=== PATIENT | male | born 1945 | race Caucasian/White ===

== ENCOUNTER 2017-12-16 19:44 | Emergency (ER) | payer OTHER, MEDICARE ==
[2017-12-16 20:31] LABS: Urine Blood NEGATIVE (NEG); Urine Glucose 2+ (NEG); Urine Protein NEGATIVE (NEG); Urine Specific Gravity 1.015 (1.005-1.030); Urine pH 5.5 (5.0-7.0)
[2017-12-16 20:34] LABS: Absolute Lymphocytes (CBC) 2.1 K/uL (0.7-4.9); Absolute Monocytes 0.6 K/uL (0.1-1.3); Absolute Neutrophil 4.2 K/uL (1.8-8.0); Basophils % 0.8 % (0-1.3); Eosinophils % 3.6 % (0-4.4); Hematocrit 46.1 % (39.6-49.0); MCH 30.8 pg (27.0-35.0); MCV 90.8 fL (80-100); MPV 9.7 fL (7.6-11.3); Monocytes % 8.8 % (3.3-12.3); RBC Red Blood Cell Count 5.08 M/uL (4.33-5.43)
[2017-12-16 20:39] LABS: Protime INR 0.99
[2017-12-16 20:44] LABS: Urine Bacteria <20 /HPF (NONE SEEN); Urine Culture Reflex Order NOT NEEDED; Urine RBC <5 /HPF (NONE SEEN)
[2017-12-16 20:56] LABS: Albumin 3.8 g/dL (3.4-5.0); Bilirubin Direct 0.1 mg/dL (0-0.2); Bilirubin Total 0.5 mg/dL (0.2-1.0); CKMB Creatine Kinase MB 2.1 ng/mL (0.3-3.6); Magnesium 2.1 mg/dL (1.8-2.4); Potassium 3.8 mmol/L (3.5-5.1); Protein, Total 7.3 g/dL (6.4-8.2)
[2017-12-16] MEDS ORDERED: ASPIRIN 81 MG CHEWABLE TABLET ONE (21:06)
--- NOTE | 2017-12-16 22:12 | RAD REPORT ---
EXAM DESCRIPTION: CT - Ct Stroke Brain Wo Cont - 12/16/2017 8:24 pm CLINICAL HISTORY: Right-sided numbness and weakness, slurred speech, CVA CLINICAL HISTORY: August 2009 TECHNIQUE: Axial 5 millimeter thick images of the head were obtained without IV contrast. All CT scans are performed using dose optimization technique as appropriate and may include automated exposure control or mA/KV adjustment according to patient size. FINDINGS: No intracranial hemorrhage, mass, or cerebral edema. No acute cortical based infarction, c ortical edema or sulcal effacement. In the left parietal periventricular white matter on the left the re is a 3 x 1 cm area of diminished attenuation not present in 2010. Although this is relatively low in attenuation. Acute or subacute nonhemorrhagic infarction is possible particularly in the setting o f right side motor sensory deficit. Patient has a baseline of moderate atrophy and chronic ischemic c hange. Ventricular size is in proportion. Atrophy and chronic ischemic change are not significantly d ifferent from 2010. Visualized portions of the mastoid air cells, paranasal sinuses, and orbits are unremarkable. IMPRESSION: No intracranial hemorrhage. A 3 x 1 cm area of infarction left parietal periventricular white matter is relatively low in density but could still represent acute to subacute infarction. Baseline moderate atrophy and chronic ischemic change seen that is not substantially different from 2 010.
--- NOTE | 2017-12-16 22:13 | RAD REPORT ---
EXAM DESCRIPTION: RAD - Chest Single View - 12/16/2017 8:39 pm CLINICAL HISTORY: Weakness, code stroke chest film COMPARISON: October 08, 2017 TECHNIQUE: AP portable chest image was obtained 2019 hours . FINDINGS: Lungs are clear. Heart and vasculature are normal. No measurable pleural effusion and no p neumothorax. No gross bony abnormality seen. No acute aortic findings suspected. IMPRESSION: No acute cardiopulmonary process. No significant change from comparison.
--- NOTE | 2017-12-16 22:33 | ER ---
Nurse's Notes [facility] Name: Otto Montiel Age: 72 yrs Sex: Male : 1945 Arrival Date: 12/16/2017 Time: 19:45 Bed 3 Private MD: Robert Darden V Diagnosis: Acute Left Parietal Periventricular Infarction Presentation: 12/16 19:58 Presenting complaint: Patient states: I've had right sided numbness from my head to my tl2 feet since Wednesday and I went and saw Dr. Sanchez, he ordered tests but I have been unable to schedule them. I just had blood work and an EKG. Pt denies any changes since Wednesday. Speech is slightly slurred, pt follows commands and answers questions appropriately. Transition of care: patient was not received from another setting of care. No acute neurological deficit is noted. Onset of symptoms was December 14, 2017. Risk Assessment: Do you want to hurt yourself or someone else? Patient reports no desire to harm self or others. Initial Sepsis Screen: Does the patient meet any 2 criteria? No. Patient's initial sepsis screen is negative. Does the patient have a suspected source of infection? No. Patient's initial sepsis screen is negative. Care prior to arrival: None. 19:58 Method Of Arrival: Wheelchair tl2 19:58 Acuity: DARIUS 2 tl2 Triage Assessment: 20:01 The onset of the patients symptoms was December 14, 2017 at 12:00. General: Appears in no tl2 apparent distress. comfortable, Behavior is calm, cooperative, appropriate for age. Pain: Denies pain. Neuro: Level of Consciousness is awake, alert, obeys commands, Oriented to person, place, time, situation, Speech is slurred, Reports blurred vision numbness in right arm and right leg. Stroke Activation: Symptom onset > 6 hours Physician: Stroke Attending; Name: ; Notified At: ; Arrived At: Physician: Chief Stroke Resident; Name: ; Notified At: ; Arrived At: Physician: Stroke Resident; Name: ; Notified At: ; Arrived At: Physician: ED Attending; Name: ; Notified At: ; Arrived At: Physician: ED Resident; Name: ; Notified At: ; Arrived At: Historical: - Allergies: 20:01 Levaquin; tl2 20:01 steroids; tl2 20:01 metformin; tl2 20:01 Actifed Cold-Allergy; tl2 20:01 Celebrex; tl2 20:01 Losartan; tl2 - Home Meds: 20:01 amlodipine 5 mg tab [Active]; glipizide 2.5 mg Oral tr24 [Active]; levothyroxine oral tl2 [Active]; - PMHx: 20:01 Diabetes - NIDDM; Hypertension; Hypothyroidism; legally blind; macular degeneration; tl2 - Immunization history:: Adult Immunizations up to date. - Social history:: Smoking status: Patient/guardian denies using tobacco. - Ebola Screening: : No symptoms or risks identified at this time. - Family history:: not pertinent. - Hospitalizations: : No recent hospitalization is reported. Screenin:02 Abuse screen: Denies threats or abuse. Nutritional screening: No deficits noted. tl2 Tuberculosis screening: No symptoms or risk factors identified. Fall Risk Ambulatory Aid- Crutches/Cane/Walker (15 pts). Gait- Impaired (20 pts.). 20:03 Abuse screen: Denies threats or abuse. Denies injuries from another. Nutritional bp screening: No deficits noted. Tuberculosis screening: No symptoms or risk factors identified. Fall Risk No fall in past 12 months (0 pts). No secondary diagnosis (0 pts). IV access (20 points). Ambulatory Aid- Crutches/Cane/Walker (15 pts). Gait- Weak (10 pts.). Mental Status- Oriented to own ability (0 pts). Total Messer Fall Scale indicates High Risk Score (45 or more points). Fall prevention measures have been instituted. Side Rails Up X 2 Placed Close to Nursing Station Frequent Obs/Assessments Occuring Family Present and informed to notify staff if the need to leave the bedside As available patient and family educated on Fall Prevention Program and Strategies. Assessment: 19:59 T-PA (Activase) Screening: Contraindications: Patient reports onset of signs and bp symptoms of stroke greater than 6 hours ago: Yes. Rapidly improving condition or minor deficit: Yes. General: Appears in no apparent distress. comfortable, obese, Behavior is calm, cooperative, appropriate for age. Pain: Denies pain. Neuro: Level of Consciousness is awake, alert, obeys commands, Oriented to person, place, time, situation, Appropriate for age Digital Marketing Associate are equal bilaterally Weakness in right leg(s) Gait is unsteady, Speech is slurred, Facial droop on right, Pupils are PERRLA, Tingling in right ear, right pentecostal, right jaw, right arm and right leg Reports weakness. Cardiovascular: Rhythm is sinus rhythm. Respiratory: Airway is patent Respiratory effort is even, unlabored, Respiratory pattern is regular, symmetrical. GI: No signs and/or symptoms were reported involving the gastrointestinal system. : No signs and/or symptoms were reported regarding the genitourinary system. EENT: No deficits noted. Derm: No signs and/or symptoms reported regarding the dermatologic system. Musculoskeletal: Range of motion: intact in all extremities, Reports weakness in right arm and right leg numbness in right arm and right leg. 19:59 Reassessment: 72YO WM P/W R SIDED NUMBNESS/WEAKNESS AND INTERMITTENT CONFUSION WITH bp SLURRED SPEECH x2 DAYS. STROKE ALERT DEFERRED DUE TO TIME FRAME. 20:00 The patient has not been NPO before screening. The patient is alert, and able to follow bp commands. The patient exhibits slurred or garbled speech. The patient is not exhibiting difficulty speaking. The patient does not exhibit difficulty understanding words. The patient is able to swallow own secretions with no drooling or need for suction. Patient tolerated one teaspoon of water. No drooling, immediate coughing, gurgling, or clearing of the throat was noted. The patient tolerated 90mL of water. No drooling, immediate coughing, gurgling, or clearing of the throat was noted. The patient passed the bedside swallow screening. Oral medications may be given as ordered. Contact Physician for further diet orders. Provider notified of bedside swallow screening results: Star Doherty MD. 20:20 Reassessment: PT TO CT WITH FIELD ARTILLERY OPERATIONS SPECIALIST. bp 20:45 Reassessment: PER , PT +ISCHEMIC CVA. DISPO PENDING. bp 22:30 Reassessment: NO CHANGE IN NEURO STATUS, TRANSFER IN PROCESS. bp 23:00 Reassessment: REPORT TO [facility], TRANSPORT PENDING. bp 23:23 Reassessment: [facility] AT [facility]/S FOR TRANSPORT. bp Vital Signs: 20:01 BP 167 / 101; Pulse 72; Resp 20; Temp 98.4(O); Pulse Ox 97% on R/A; Weight 104.33 kg; tl2 Height 5 ft. 9 in. (175.26 cm); Pain 0/10; 20:30 BP 198 / 93; Pulse 84; Resp 22; Pulse Ox 96% ; bp 21:05 BP 189 / 86; Pulse 62; Resp 20; Pulse Ox 96% on R/A; mt 21:54 BP 172 / 86; Pulse 70; Resp 16; Pulse Ox 96% on R/A; mt 22:00 BP 174 / 86; Pulse 66; Resp 13; Pulse Ox 96% ; bp 22:30 BP 170 / 81; Pulse 64; Resp 15; Pulse Ox 96% ; bp 23:00 BP 183 / 94; Pulse 62; Resp 12; Pulse Ox 97% ; bp 20:01 Body Mass Index 33.96 (104.33 kg, 175.26 cm) tl2 NIH Stroke Scale Scores: 19:59 NIHSS Score: 7 bp ED Course: 19:45 Patient arrived in ED. es 19:47 Robert Darden MD is Private Physician. es 19:47 Faustino Luevano, RED is Primary Nurse. bp 19:57 EKG done, by ED staff, reviewed by Star Doherty MD. mt 19:59 Star Doherty MD is Attending Physician. oh 19:59 Inserted saline lock: 20 gauge in right antecubital area, using aseptic technique. bp Blood collected. 20:00 Triage completed. tl2 20:01 Arm band placed on right wrist. tl2 20:02 Patient has correct armband on for positive identification. Placed in gown. Bed in low tl2 position. Side rails up X2. Adult w/ patient. 20:[address] via stretcher. nj 20:23 CT completed. Patient tolerated procedure well. Patient moved back from CT. nj 20:23 CT Stroke Brain w/o Contrast In Process Unspecified. EDMS 20:39 Stroke CXR 1 View In Process Unspecified. EDMS 23:24 No provider procedures requiring assistance completed. Patient transferred, IV remains bp in place. Administered Medications: 21:09 Drug: Aspirin 162 mg Route: PO; jd3 21:11 Follow up: Response: No adverse reaction bp Point of Care Testing: Blood Glucose: 19:57 Blood Glucose: 345 mg/dL; mt Ranges: Outcome: 22:33 ER care complete, transfer ordered by . wa 23:23 Transferred by ground EMS to [facility]. bp 23:23 Condition: stable 23:23 Instructed on the need for transfer. 23:26 Patient left the ED. bp NIH Stroke Scale - NIH Stroke Score Date: 12/16/2017 Time: 19:59 Total Score = 7 1a. Level of Consciousness (LOC) - 0(Alert) 1b. Level of Consciousness (LOC) (Year \T\ Age) - 0(Both) 1c. LOC Commands (Open \T\ Closes Eyes/Director Of Labor And Delivery) - 0(Both) 2. Best Gaze (Lateral Gaze Paresis) - 0(Normal) 3. Visual Field Loss - 1(Partial hemianopia) 4. Facial Palsy - 1(Minor Paralysis) 5a. Left Arm: Motor (10-second hold) - 0(No drift) 5b. Right Arm: Motor (10-second hold) - 1(Drift) 6a. Left Leg: Motor (5-second hold - always test supine) - 0(No drift) 6b. Right Leg: Motor (5-second hold - always test supine) - 2(Drift, some effort against gravity) 7. Limb Ataxia (finger/nose \T\ heel/ryan - test with eyes open) - 0(Absent) 8. Sensory Loss (pinprick arms/legs/face) - 1(Mild to moderate loss) 9. Best Language: Aphasia (description/naming/reading) - 0(No aphasia) 10. Dysarthria (speech clarity - read or repeat words) - 1(Mild to Moderate) 11. Extinction and Inattention (visual/tactile/auditory/spatial/personal) - 0(No abnormality) Initials: bp Signatures: Dispatcher [employer] Rafia Morales Taylor, RN RN tl2 Claudio Bernard, Star Abreu mt, MD MD wa Davies, Jonathon, RN RN Faustino Narayan RN RN bp Corrections: (The following items were deleted from the chart) 20:29 20:05 Inserted saline lock: 20 gauge in right antecubital area, using aseptic bp technique. Blood collected. bp
--- NOTE | 2017-12-16 22:34 | EDPHYS ---
Physician Documentation [facility] Name: Otto Montiel Age: 72 yrs Sex: Male : 1945 Arrival Date: 12/16/2017 Time: 19:45 Bed 3 Private MD: Robert Darden V ED Physician Star Doherty HPI: 12/16 22:19 This 72 yrs old Male presents to ER via Wheelchair with complaints of S/S of wa Possible Stroke. 22:19 The patient's problem is reported as weakness, difficulty with speech. Onset: The wa symptoms/episode began/occurred 4 day(s) ago. Duration: This was a single incident, pt states noticed difficulty finding his words on Wednesday. also c/o numbness on the right side of his body. per , pt having difficulty walking and has been falling into things. admits to R side [place]. saw Dr. Sanchez 2 days ago. Given a requisition for MRI, labs and EKG and carotid dopplers. Per , scheduled for Jan 10 but pt's symptoms are not improving so they came to ED. took a baby ASA today. Context: the episode(s) was witnessed, by no one, occurred at home, occurred while the patient was working, Possible contributing factors include: h/o DM and HTN. The symptoms are alleviated by nothing. The symptoms are aggravated by walking. Associated signs and symptoms: Pertinent positives: gait abnormality, headache, numbness, Pertinent negatives: blurred vision, chest pain, palpitations. Severity of symptoms: At their worst the symptoms were moderate in the emergency department the symptoms are unchanged. Patient's baseline: Neuro: alert and fully oriented, Motor: uses walker due to blindness, Ambulation: walks with assist only, uses walker, Speech: normal. The patient has not experienced similar symptoms in the past. The patient has been recently seen by a physician: Dr. Sanchez. Historical: - Allergies: 20:01 Levaquin; tl2 20:01 steroids; tl2 20:01 metformin; tl2 20:01 Actifed Cold-Allergy; tl2 20:01 Celebrex; tl2 20:01 Losartan; tl2 - Home Meds: 20:01 amlodipine 5 mg tab [Active]; glipizide 2.5 mg Oral tr24 [Active]; levothyroxine oral tl2 [Active]; - PMHx: 20:01 Diabetes - NIDDM; Hypertension; Hypothyroidism; legally blind; macular degeneration; tl2 - Immunization history:: Adult Immunizations up to date. - Social history:: Smoking status: Patient/guardian denies using tobacco. - Ebola Screening: : No symptoms or risks identified at this time. - Family history:: not pertinent. - Hospitalizations: : No recent hospitalization is reported. ROS: 22:25 Constitutional: Negative for fever, chills, and weight loss, Eyes: Negative for injury, wa pain, redness, and discharge, ENT: Negative for injury, pain, and discharge, Neck: Negative for injury, pain, and swelling, Cardiovascular: Negative for chest pain, palpitations, and edema, Respiratory: Negative for shortness of breath, cough, wheezing, and pleuritic chest pain, Abdomen/GI: Negative for abdominal pain, nausea, vomiting, diarrhea, and constipation, Back: Negative for injury and pain, : Negative for injury, bleeding, discharge, and swelling, MS/Extremity: Negative for injury and deformity, Skin: Negative for injury, rash, and discoloration. 22:25 Neuro: Positive for gait disturbance, headache, visual changes. 22:25 All other systems are negative. Exam: 22:25 Radiologist reports: Left 3cm x 1cm right parietal periventricular acute to subacute wa infarction 22:25 Constitutional: This is a well developed, well nourished patient who is awake, alert, and in no acute distress. Head/Face: Normocephalic, atraumatic. Eyes: Pupils equal round and reactive to light, extra-ocular motions intact. Lids and lashes normal. Conjunctiva and sclera are non-icteric and not injected. Cornea within normal limits. Periorbital areas with no swelling, redness, or edema. ENT: Nares patent. No nasal discharge, no septal abnormalities noted. Tympanic membranes are normal and external auditory canals are clear. Oropharynx with no redness, swelling, or masses, exudates, or evidence of obstruction, uvula midline. Mucous membranes moist. Neck: Trachea midline, no thyromegaly or masses palpated, and no cervical lymphadenopathy. Supple, full range of motion without nuchal rigidity, or vertebral point tenderness. No Meningismus. Chest/axilla: Normal chest wall appearance and motion. Nontender with no deformity. No lesions are appreciated. Cardiovascular: Regular rate and rhythm with a normal S1 and S2. No gallops, murmurs, or rubs. Normal PMI, no JVD. No pulse deficits. Respiratory: Lungs have equal breath sounds bilaterally, clear to auscultation and percussion. No rales, rhonchi or wheezes noted. No increased work of breathing, no retractions or nasal flaring. Abdomen/GI: Soft, non-tender, with normal bowel sounds. No distension or tympany. No guarding or rebound. No evidence of tenderness throughout. Back: No spinal tenderness. No costovertebral tenderness. Full range of motion. Skin: Warm, dry with normal turgor. Normal color with no rashes, no lesions, and no evidence of cellulitis. MS/ Extremity: Pulses equal, no cyanosis. Neurovascular intact. Full, normal range of motion. Psych: Awake, alert, with orientation to person, place and time. Behavior, mood, and affect are within normal limits. 22:25 Neuro: Orientation: is normal, Mentation: is normal, Memory: is normal, Cranial nerves: grossly normal, Motor: mild weakness noted L upper and lower extremity. also L lower face weakness, Sensation: numbness to Right side of body. Vital Signs: 20:01 BP 167 / 101; Pulse 72; Resp 20; Temp 98.4(O); Pulse Ox 97% on R/A; Weight 104.33 kg; tl2 Height 5 ft. 9 in. (175.26 cm); Pain 0/10; 20:30 BP 198 / 93; Pulse 84; Resp 22; Pulse Ox 96% ; bp 21:05 BP 189 / 86; Pulse 62; Resp 20; Pulse Ox 96% on R/A; mt 21:54 BP 172 / 86; Pulse 70; Resp 16; Pulse Ox 96% on R/A; mt 22:00 BP 174 / 86; Pulse 66; Resp 13; Pulse Ox 96% ; bp 22:30 BP 170 / 81; Pulse 64; Resp 15; Pulse Ox 96% ; bp 23:00 BP 183 / 94; Pulse 62; Resp 12; Pulse Ox 97% ; bp 20:01 Body Mass Index 33.96 (104.33 kg, 175.26 cm) tl2 NIH Stroke Scale Scores: 19:59 NIHSS Score: 7 bp MDM: 19:59 Patient medically screened. wa 22:28 Differential diagnosis: CVA, concern for CVA. will work up and reassess. Data reviewed: wa vital signs, nurses notes, lab test result(s), EKG, radiologic studies. Test interpretation: by ED physician or midlevel provider: labs noted for hyperglycemia and elevated troponin.. 22:29 Test interpretation: by ED physician or midlevel provider: EKG: no acute ischemic wa changes noted. . Response to treatment: the patient's symptoms have mildly improved after treatment. ED course: given ASA p.o. Spoke with Dr. Sanchez. not web applications architect and out of town. advised transfer out for further care. pt accepted at [facility] by neurologist Dr. Rocha. family counseled. 12/16 20:06 Order name: Troponin (emerg Dept Use Only); Complete Time: 21:01 bp 12/16 20:06 Order name: Magnesium; Complete Time: 21:39 bp 12/16 20:06 Order name: Lipase; Complete Time: 21:39 bp 12/16 20:06 Order name: Hepatic Function; Complete Time: 21:39 bp 12/16 20:06 Order name: CPK bp 12/16 20:06 Order name: Ckmb bp 12/16 20:06 Order name: Amylase, Serum; Complete Time: 21:38 bp 12/16 20:06 Order name: Basic Metabolic Panel; Complete Time: 21:38 bp 12/16 20:06 Order name: CBC with Diff; Complete Time: 21:39 bp 12/16 20:06 Order name: Protime (+inr); Complete Time: 21:38 bp 12/16 20:06 Order name: Ptt, Activated; Complete Time: 21:38 bp 12/16 20:06 Order name: Urine Microscopic Only; Complete Time: 21:38 bp 12/16 20:06 Order name: CT Stroke Brain w/o Contrast; Complete Time: 22:18 bp 12/16 20:23 Order name: Urine Dipstick--Ancillary (enter results); Complete Time: 21:00 ms 12/16 20:06 Order name: Stroke CXR 1 View bp 12/16 20:06 Order name: EKG; Complete Time: 20:07 bp 12/16 20:06 Order name: Accucheck; Complete Time: 20:07 bp 12/16 20:06 Order name: Cardiac monitoring; Complete Time: 20: bp 12/16 20:06 Order name: EKG - Nurse/Tech; Complete Time: 20: bp 12/16 20:06 Order name: IV Saline Lock; Complete Time: 20: bp 12/16 20:06 Order name: Labs collected and sent; Complete Time: 20: bp 12/16 20:06 Order name: NPO; Complete Time: 20:08 bp 12/16 20:06 Order name: O2 Per Protocol; Complete Time: 20: bp 12/16 20:06 Order name: O2 Sat Monitoring; Complete Time: 20:08 bp 12/16 20:06 Order name: Stroke Swallow Screen; Complete Time: 20:58 bp 12/16 20:06 Order name: Urine Dipstick-Ancillary (obtain specimen); Complete Time: 20:22 bp Administered Medications: 21:09 Drug: Aspirin 162 mg Route: PO; jd3 21:11 Follow up: Response: No adverse reaction bp Point of Care Testing: Blood Glucose: 19:57 Blood Glucose: 345 mg/dL; mt Ranges: Critical Glucose Levels:Adult <50 mg/dl or >400 mg/dl <40 mg/dl or >180 mg/dl Disposition: 12/16/17 22:33 Transfer ordered to [facility]. Diagnosis is Acute Left Parietal Periventricular Infarction. - Reason for transfer: Higher level of care. - Accepting physician is Dr. Rocha - [facility]. - Condition is Stable. - Problem is new. - Symptoms have improved. NIH Stroke Scale - NIH Stroke Score Date: 12/16/2017 Time: 19:59 Total Score = 7 1a. Level of Consciousness (LOC) - 0(Alert) 1b. Level of Consciousness (LOC) (Year \T\ Age) - 0(Both) 1c. LOC Commands (Open \T\ Closes Eyes/Certified Endoscopy Technician) - 0(Both) 2. Best Gaze (Lateral Gaze Paresis) - 0(Normal) 3. Visual Field Loss - 1(Partial hemianopia) 4. Facial Palsy - 1(Minor Paralysis) 5a. Left Arm: Motor (10-second hold) - 0(No drift) 5b. Right Arm: Motor (10-second hold) - 1(Drift) 6a. Left Leg: Motor (5-second hold - always test supine) - 0(No drift) 6b. Right Leg: Motor (5-second hold - always test supine) - 2(Drift, some effort against gravity) 7. Limb Ataxia (finger/nose \T\ heel/ryan - test with eyes open) - 0(Absent) 8. Sensory Loss (pinprick arms/legs/face) - 1(Mild to moderate loss) 9. Best Language: Aphasia (description/naming/reading) - 0(No aphasia) 10. Dysarthria (speech clarity - read or repeat words) - 1(Mild to Moderate) 11. Extinction and Inattention (visual/tactile/auditory/spatial/personal) - 0(No abnormality) Initials: bp Signatures: Dispatcher [employer] EDSaba Cornejo, RN RN tl2 Star Doherty MD MD wa Davies, Jonathon, RN RN jd3 Faustino Luevano RN RN bp Corrections: (The following items were deleted from the chart) 23:26 22:33 12/16/2017 22:33 Transfer ordered to [facility]. bp Diagnosis is Acute Left Parietal Periventricular Infarction. Reason for transfer: Higher level of care. [facility] Condition is Stable. Problem is new. Symptoms have improved. jennifer
[2017-12-16 23:31] VITALS: TEMP 98.4
[2017-12-16 23:38] VITALS: BP 183/94; O2SAT 97
--- NOTE | 2017-12-17 08:06 | EKG ---
Test Date: 2017-12-16 Test Time: 19:48:17 Chief Specialist Leed: [place] MEASUREMENT RESULTS: Intervals: Rate: 73 MO: 170 QRSD: 94 QT: 392 QTc: 431 [place]: P: 49 MO: 170 QRS: -6 T: 76 INTERPRETIVE STATEMENTS: Normal sinus rhythm Normal ECG Compared to ECG 12/14/2017 12:40:50 T-wave abnormality no longer present Electronically Signed On 12-17-17 08:03:19 CDT by Cipriano Campbell
== END 2017-12-16 23:26 | disposition short-term general hospital (02) ==
LOC: ER 19:44
DX: I63.8 Other cerebral infarction (principal); I10 Essential (primary) hypertension; R29.707 NIHSS score 7; E11.9 Type 2 diabetes mellitus without complications; E03.9 Hypothyroidism, unspecified; Z88.1 Allergy status to other antibiotic agents; Z88.8 Allergy status to other drugs, medicaments and biological substances
CPT/HCPCS: 36415; 70450; 71045; 80048; 80076; 81003; 81015; 82150; 82550; 82553; 82962; 83690; 83735; 84484; 85025; 85610; 85730; 93005; 99285

== ENCOUNTER 2017-12-26 11:05 | Inpatient (IN) | payer OTHER, MEDICARE ==
--- OUTSIDE RECORDS SUMMARY | 2017-12-26 15:40 | XMS REPORT ---
:1945 [facility] Address [address] [place] [address] Care Team Providers Name Role Phone LUCAS ANDERSONY ROMIE ARAIZANICOLENasrin Unavailable Unavailable Problems This patient has no known problems. Allergies, Adverse Reactions, Alerts This patient has no known allergies or adverse reactions. Medications This patient has no known medications. Results Test Description Test Time Test Comments Text Results Atomic Results Result Comments POCT-GLUCOSE METER 2017-12-18 12:21:00 Test Item Value Reference Range Comments POC-GLUCOSE METER (BEAKER) (test 315 mg/dL 70-110 Notified RED JAQUEZ/TESTED AT [facility] noyu=[id number]) [address] [place] [address] POCT-GLUCOSE [id number] 08:26:00 Test Item Value Reference Range Comments POC-GLUCOSE METER (BEAKER) 304 mg/dL 70-110 Notified RED JAQUEZ/TESTED AT [facility] (test fwad=0750) [address] [place] [address] [id number] 06:46:00 Test Item Value Reference Range Comments MAGNESIUM (BEAKER) (test 2.2 mg/dL 1.6-2.6 Specimen slightly hemolyzed nmpk=217) BASIC METABOLIC [id number] 06:46:00 Test Item Value Reference Range Comments SODIUM (BEAKER) (test 133 meq/L 136-145 rpfi=287) POTASSIUM (BEAKER) (test 4.0 meq/L 3.5-5.1 Specimen slightly spnb=133) hemolyzed CHLORIDE (BEAKER) (test 101 meq/L 98-107 ymkb=460) CO2 (BEAKER) (test 24 meq/L 22-29 cxib=320) BLOOD UREA NITROGEN 17 mg/dL 7-21 (BEAKER) (test cmja=102) CREATININE (BEAKER) (test 1.19 mg/dL 0.57-1.25 Specimen slightly rfzy=383) hemolyzed GLUCOSE RANDOM (BEAKER) 315 mg/dL 70-105 (test yxgu=717) CALCIUM (BEAKER) (test 9.5 mg/dL 8.4-10.2 myws=445) EGFR (BEAKER) (test 60 mL/min/1.73 sq m ESTIMATED GFR IS NOT mhti=7001) ACCURATE CREATININE CLEARANCE IN PREDICTING GLOMERULAR FILTRATION RATE. ESTIMATED GFR IS NOT APPLICABLE FOR DIALYSIS PATIENTS. CBC W/PLT COUNT & AUTO [id number] 06:43:00 Test Item Value Reference Range Comments WHITE BLOOD CELL COUNT (BEAKER) (test kswj=791) 6.9 K/ L 3.5-10.5 RED BLOOD CELL COUNT (BEAKER) (test lxah=579) 5.14 M/ L 4.63-6.08 HEMOGLOBIN (BEAKER) (test bqte=817) 15.6 GM/DL 13.7-17.5 HEMATOCRIT (BEAKER) (test eyny=299) 46.3 % 40.1-51.0 MEAN CORPUSCULAR VOLUME (BEAKER) (test lecq=838) 90.1 fL 79.0-92.2 MEAN CORPUSCULAR HEMOGLOBIN (BEAKER) (test 30.4 pg 25.7-32.2 riav=710) MEAN CORPUSCULAR HEMOGLOBIN CONC (BEAKER) (test 33.7 GM/DL 32.3-36.5 lzcg=424) RED CELL DISTRIBUTION WIDTH (BEAKER) (test 12.5 % 11.6-14.4 uleu=506) PLATELET COUNT (BEAKER) (test phqj=494) 172 K/CU MM 150-450 MEAN PLATELET VOLUME (BEAKER) (test niak=067) 11.2 fL 9.4-12.4 NUCLEATED RED BLOOD CELLS (BEAKER) (test 0 /100 WBC 0-0 zoas=034) NEUTROPHILS RELATIVE PERCENT (BEAKER) (test 60 % ulmq=041) LYMPHOCYTES RELATIVE PERCENT (BEAKER) (test 26 % lonj=855) MONOCYTES RELATIVE PERCENT (BEAKER) (test 10 % igid=490) EOSINOPHILS RELATIVE PERCENT (BEAKER) (test 3 % zess=846) BASOPHILS RELATIVE PERCENT (BEAKER) (test 1 % pqlj=465) NEUTROPHILS ABSOLUTE COUNT (BEAKER) (test 4.11 K/ L 1.78-5.38 leou=606) LYMPHOCYTES ABSOLUTE COUNT (BEAKER) (test 1.79 K/ L 1.32-3.57 pywu=103) MONOCYTES ABSOLUTE COUNT (BEAKER) (test 0.66 K/ L 0.30-0.82 tgah=977) EOSINOPHILS ABSOLUTE COUNT (BEAKER) (test 0.22 K/ L 0.04-0.54 pkkm=722) BASOPHILS ABSOLUTE COUNT (BEAKER) (test 0.04 K/ L 0.01-0.08 boxb=417) IMMATURE GRANULOCYTES-RELATIVE PERCENT (BEAKER) 1 % 0-1 (test ktsm=8589) [id number] 02:37:00 Test Item Value Reference Range Comments RPR SCREEN (BEAKER) (test oraa=965) Nonreactive Nonreactive POCT-GLUCOSE [id number] 00:03:00 Test Item Value Reference Range Comments POC-GLUCOSE METER (BEAKER) 338 mg/dL 70-110 Notified RED JAQUEZ/TESTED AT [facility] (test ecxs=6459) [address] [facility] [address] MR, MRA, NECK, WITHOUT IV [id number] 21:41:00Reason for exam:-> strokeFINAL REPORT MRA Head CLINICAL HISTORY: Stroke TECHNIQUE: MRA of the head utilizing 3-D dlqo-qv-igdzct technique, with 3-D reconstructions. COMPARISON: None FINDINGS: There is severe stenosis of the proximal left middle cerebral artery with loss of several distal branch vessels.There is severe stenosis of the proximal left anterior cerebral artery. There is severe stenosis of the proximal right middle cerebral artery. There are severe stenosis of the bilateral posterior cerebral arteries. There is loss of the left intradural vertebral artery. There is moderate stenosis of the basilar artery. IMPRESSION: Multifocal severe intracranial atherosclerotic disease with loss of several left MCA distal branch vessels. MRA Neck CLINICAL HISTORY: Stroke TECHNIQUE: MRA of the neck utilizing 2-D and 3-D time- of-flight technique, with 3-D reconstructions. COMPARISON: None IMPRESSION: There is 66% stenosis of the proximal left internal carotid artery by NASCET criteria. There is 20%stenosis of the proximal right internal carotid artery by NASCET criteria. There is severe attenuation of the left vertebral artery. There is preserved antegrade flow in the right vertebral artery. Signed: Chaparro Gomes MDReport Verified Date/Time: 12/17/2017 21:41:27 Reading Location: [facility] Radiology Reading Room MR, MRA, BRAIN, WITHOUT [id number] 21:41: 00Reason for exam:->strokeFINAL REPORT MRA Head CLINICAL HISTORY: Stroke TECHNIQUE: MRA of the head utilizing 3-D time-of- flight technique, with 3-D reconstructions. COMPARISON: None FINDINGS: There is severe stenosis of the proximal left middle cerebral artery with loss of several distal branch vessels.There is severe stenosis of the proximal left anterior cerebral artery. There is severe stenosis of the proximal right middle cerebral artery. There are severe stenosis of the bilateral posterior cerebral arteries. There is loss of the left intradural vertebral artery. There is moderate stenosis of the basilar artery. IMPRESSION: Multifocal severe intracranial atherosclerotic disease with loss of several left MCA distal branch vessels. MRA Neck CLINICAL HISTORY: Stroke TECHNIQUE: MRA of the neck utilizing 2-D and 3-D zuer-ft-glgtby technique, with 3-D reconstructions. COMPARISON: None IMPRESSION:There is 66% stenosis of the proximal left internal carotid artery by NASCET criteria. There is 20%stenosis of the proximal right internal carotid artery by NASCET criteria. There is severe attenuation of the left vertebral artery. There is preserved antegrade flow in the right vertebral artery. Signed: Chaparro Gomes MDReport Verified Date/Time: 2017 21:41:27 Reading Location: [facility] Reading Room MR, BRAIN, WITHOUT [id number] 21:30:00Reason for exam:->Stroke evaluationFINAL REPORT MRI Brain without contrast Clinical History: Stroke Technique: MRI of the brain utilizing axial T2, FLAIR, GRE, DWI; sagittal and coronal T1-weighted images. Comparisons: Outside head CT 12/16/2017 Findings: There are acute infarcts of the high left parietal lobe, left parietal periventricular white matter, with scattered acute infarcts of the left temporal and occipital lobes. There is no acute hemorrhage. There is mild periventricular and subcortical white matterT2 hyperintensity, which is nonspecific but compatible with chronic microvascular ischemic change. There is generalized parenchymal volume loss without hydrocephalus, midline shift, or apparent mass effect. There are no extra-axial fluid collections. The craniocervical junction is preserved. There is attenuation of the left middle cerebral artery flow void. IMPRESSION: Acute left parietal, temporal,and occipital infarcts without hemorrhage. Attenuated left middle cerebral artery flow void. Signed:Chaparro Gomes MDReport Verified Date/Time: 12/17/2017 21:30: 55 Reading Location: [facility] Radiology Reading Room POCT-GLUCOSE [id number] 18:05:00 Test Item Value Reference Range Comments POC-GLUCOSE METER (BEAKER) 270 mg/dL 70-110 TESTED AT [address] (test liiv=0523) [facility] [address] VITAMIN [id number] 17:03:00 Test Item Value Reference Range Comments VITAMIN B12 (BEAKER) (test dzgb=201) < pg/mL 213-816 [id number] 15:45:00 Test Item Value Reference Range Comments HOMOCYSTEINE (BEAKER) (test wuki=962) 16.8 umol/L 5.1-15.4 POCT-GLUCOSE [id number] 12:49:00 Test Item Value Reference Range Comments POC-GLUCOSE METER (BEAKER) 308 mg/dL 70-110 Notified RED JAQUEZ/TESTED AT [facility] (test gvod=8663) [address] [place] [address] CREATINE KINASE (CK), TOTAL AND [id number] 09:37:00 Test Item Value Reference Range Comments CREATINE KINASE TOTAL (BEAKER) (test upoa=266) 78 U/L 29-200 CREATINE KINASE-MB (BEAKER) (test slfa=318) 1.9 ng/mL 0.0-6.6 CREATINE KINASE-MB INDEX (BEAKER) (test ozky=483) 2.4 % CK-MB Reference Range:<6.7 Normal6.7-10.0 Borderline>10.0 AbnormalTROPONIN [id number] 09:37:00 Test Item Value Reference Range Comments TROPONIN I (BEAKER) (test jdcb=188) 0.03 ng/mL 0.00-0.03 Troponin I (TnI) levels must be interpreted in the context of the presenting symptoms and the clinical findings. Elevated TnI levels indicate myocardial damage, but are not specific for ischemic heart disease. Elevated TnI levels are seen in patients with other cardiac conditions (including myocarditis and congestive heart failure), and slight TnI elevations occur in patients with other conditions, including sepsis, renal failure, acidosis, acute neurological disease, and persistent tachyarrhythmia.HEMOGLOBIN [id number] 09:27:00 Test Item Value Reference Range Comments HEMOGLOBIN A1C (BEAKER) (test bgld=796) 12.1 % 4.3-6.1 POCT-GLUCOSE [id number] 08:53:00 Test Item Value Reference Range Comments POC-GLUCOSE METER (BEAKER) 289 mg/dL 70-110 TESTED AT [facility] [address] [facility] (test ysij=6842) [facility] [address] T4, [id number] 05:26:00 Test Item Value Reference Range Comments FREE T4 (BEAKER) (test loum=766) 0.83 ng/dL 0.70-1.48 TSH/FREE T4 IF [id number] 04:27:00 Test Item Value Reference Range Comments THYROID STIMULATING HORMONE (BEAKER) (test 10.00 uIU/mL 0.35-4.94 yepg=288) VITAMIN B12 AND [id number] 04:27:00 Test Item Value Reference Range Comments VITAMIN B12 (BEAKER) (test kqzo=768) < pg/mL 213-816 FOLATE (BEAKER) (test ytxy=408) 15.7 ng/mL >=7.0 [id number] 03:52:00 Test Item Value Reference Range Comments MAGNESIUM (BEAKER) (test 2.2 mg/dL 1.6-2.6 Specimen slightly hemolyzed ulbd=083) BASIC METABOLIC [id number] 03:52:00 Test Item Value Reference Range Comments SODIUM (BEAKER) (test 133 meq/L 136-145 fgho=564) POTASSIUM (BEAKER) (test 3.8 meq/L 3.5-5.1 Specimen slightly jeoz=570) hemolyzed CHLORIDE (BEAKER) (test 100 meq/L 98-107 rpxd=399) CO2 (BEAKER) (test 20 meq/L 22-29 bhud=979) BLOOD UREA NITROGEN 17 mg/dL 7-21 (BEAKER) (test namv=184) CREATININE (BEAKER) (test 1.11 mg/dL 0.57-1.25 Specimen slightly bcxc=121) hemolyzed GLUCOSE RANDOM (BEAKER) 340 mg/dL 70-105 (test jgfg=629) CALCIUM (BEAKER) (test 9.4 mg/dL 8.4-10.2 xegi=229) EGFR (BEAKER) (test 65 mL/min/1.73 sq m ESTIMATED GFR IS NOT asjs=0582) ACCURATE CREATININE CLEARANCE IN PREDICTING GLOMERULAR FILTRATION RATE. ESTIMATED GFR IS NOT APPLICABLE FOR DIALYSIS PATIENTS. LIPID [id number] 03:52:00 Test Item Value Reference Range Comments TRIGLYCERIDES (BEAKER) (test 351 mg/dL Specimen slightly hemolyzed aiaw=926) CHOLESTEROL (BEAKER) (test 216 mg/dL Specimen slightly hemolyzed hspf=886) HDL CHOLESTEROL (BEAKER) (test 35 mg/dL oqhf=329) LDL CHOLESTEROL CALCULATED 111 mg/dL (BEAKER) (test rbxr=152) Triglyceride Reference Range: Low Risk <150 Borderline 150- 199 High Risk 200-499 Very High Risk >=500Cholesterol Reference Range: Low Risk <200 Borderline 200-239 High Risk > 240HDL Cholesterol Reference Range: Low Risk >=60 High Risk <40LDL Cholesterol Reference Range: Optimal <100 Near Optimal 100-129 Borderline 130-159 High 160-189 Very High >=190CBC W/PLT COUNT & AUTO [id number] 03:29:00 Test Item Value Reference Range Comments WHITE BLOOD CELL COUNT (BEAKER) (test mbyy=540) 7.2 K/ L 3.5-10.5 RED BLOOD CELL COUNT (BEAKER) (test fjag=093) 4.80 M/ L 4.63-6.08 HEMOGLOBIN (BEAKER) (test ltpa=813) 14.5 GM/DL 13.7-17.5 HEMATOCRIT (BEAKER) (test qsrn=211) 43.2 % 40.1-51.0 MEAN CORPUSCULAR VOLUME (BEAKER) (test wrou=733) 90.0 fL 79.0-92.2 MEAN CORPUSCULAR HEMOGLOBIN (BEAKER) (test 30.2 pg 25.7-32.2 cyzd=040) MEAN CORPUSCULAR HEMOGLOBIN CONC (BEAKER) (test 33.6 GM/DL 32.3-36.5 brss=137) RED CELL DISTRIBUTION WIDTH (BEAKER) (test 12.4 % 11.6-14.4 cuyj=738) PLATELET COUNT (BEAKER) (test ddcw=823) 176 K/CU MM 150-450 MEAN PLATELET VOLUME (BEAKER) (test iqnm=247) 10.9 fL 9.4-12.4 NUCLEATED RED BLOOD CELLS (BEAKER) (test 0 /100 WBC 0-0 pfbv=763) NEUTROPHILS RELATIVE PERCENT (BEAKER) (test 63 % qzui=718) LYMPHOCYTES RELATIVE PERCENT (BEAKER) (test 23 % sfza=441) MONOCYTES RELATIVE PERCENT (BEAKER) (test 9 % tzqg=512) EOSINOPHILS RELATIVE PERCENT (BEAKER) (test 3 % pkzp=389) BASOPHILS RELATIVE PERCENT (BEAKER) (test 1 % pkyg=579) NEUTROPHILS ABSOLUTE COUNT (BEAKER) (test 4.53 K/ L 1.78-5.38 ghpy=800) LYMPHOCYTES ABSOLUTE COUNT (BEAKER) (test 1.68 K/ L 1.32-3.57 iwfq=331) MONOCYTES ABSOLUTE COUNT (BEAKER) (test 0.64 K/ L 0.30-0.82 gjxi=369) EOSINOPHILS ABSOLUTE COUNT (BEAKER) (test 0.24 K/ L 0.04-0.54 wynw=237) BASOPHILS ABSOLUTE COUNT (BEAKER) (test 0.04 K/ L 0.01-0.08 juhb=077) IMMATURE GRANULOCYTES-RELATIVE PERCENT (BEAKER) 1 % 0-1 (test yvgi=7829)
[2017-12-26] MEDS ORDERED: D50W 25 GM/50 ML SYRINGE IV PRN ×2 (15:54→16:40)
[2017-12-26] MEDS ORDERED: GLUCAGON 1 MG/VIAL IM PRN ×2 (15:54→16:40)
[2017-12-26 18:35] LABS: Urine Appearance CLEAR; Urine Bilirubin NEGATIVE (NEG); Urine Blood NEGATIVE (NEG); Urine Color YELLOW; Urine Glucose NEGATIVE (NEG); Urine Protein NEGATIVE (NEG); Urine Specific Gravity <=1.005 (1.005-1.030)
[2017-12-26 18:41] LABS: Urine Microscopic Reflex NO UMIC
[2017-12-26 18:53] LABS: Urine Bacteria NONE SEEN /HPF (NONE SEEN); Urine Culture Reflex Order NOT NEEDED; Urine RBC NONE SEEN /HPF (NONE SEEN)
[2017-12-26] MEDS: APIXABAN 2.5 MG TABLET PO SCH (20:12)
[2017-12-26] MEDS ORDERED: ATORVASTATIN 80 MG TAB PO SCH (21:00)
[2017-12-26] MEDS: INSULIN -REGULAR HUMAN 50 UNIT/0.5 ML ML SQ SCH (21:12)
[2017-12-26] MEDS ORDERED: INSULIN DETEMIR 100 UNIT/1 ML INSULIN SQ SCH (22:30)
[2017-12-27] MEDS: LEVOTHYROXINE SOD 0.1 MG TAB PO SCH (05:04)
[2017-12-27] MEDS ORDERED: LEVOTHYROXINE SOD 0.1 MG TAB PO SCH (06:00)
[2017-12-27 06:31] LABS: Absolute Lymphocytes (CBC) 1.6 K/uL (0.7-4.9); Absolute Monocytes 0.7 K/uL (0.1-1.3); Basophils % 0.8 % (0-1.3); Eosinophils % 3.5 % (0-4.4); Lymphocytes % 24.7 % (15.3-44.8); MCH 30.9 pg (27.0-35.0); MCV 89.8 fL (80-100); Monocytes % 11.2 % (3.3-12.3); RBC Red Blood Cell Count 4.68 M/uL (4.33-5.43)
[2017-12-27 06:47] LABS: Albumin 3.4 g/dL (3.4-5.0); Magnesium 2.2 mg/dL (1.8-2.4); Potassium 3.8 mmol/L (3.5-5.1); Prealbumin 17.3 mg/dL (20-40)
[2017-12-27] MEDS: INSULIN -REGULAR HUMAN 50 UNIT/0.5 ML ML SQ SCH ×4 (07:30→21:00)
[2017-12-27] MEDS ORDERED: INSULIN DETEMIR 100 UNIT/1 ML INSULIN SQ SCH (08:00)
[2017-12-27] MEDS ORDERED: VIT B COMPLEX SL SCH (08:00)
[2017-12-27] MEDS ORDERED: ASPIRIN EC 81 MG TAB PO SCH (08:00)
[2017-12-27] MEDS ORDERED: LANTUS SOLOSTAR SQ SCH (08:00)
[2017-12-27] MEDS ORDERED: CYANOCOBALAMIN 1,000 MCG TAB PO SCH (08:00)
[2017-12-27] MEDS ORDERED: AMLODIPINE 10 MG TAB PO SCH (08:00)
[2017-12-27] MEDS: AMLODIPINE 10 MG TAB PO SCH (08:13)
[2017-12-27] MEDS: APIXABAN 2.5 MG TABLET PO SCH ×2 (08:13→21:34)
[2017-12-27] MEDS: CYANOCOBALAMIN 1,000 MCG TAB PO SCH (08:13)
[2017-12-27] MEDS: ASPIRIN EC 81 MG TAB PO SCH (08:14)
--- NOTE | 2017-12-27 12:38 | P.HP ---
Certification for Inpatient Patient admitted to: Inpatient With expected LOS: >2 Midnights Patient will require the following post-hospital care: Rehabilitation Practitioner: I am a practitioner with admitting privileges, knowledge of patient current condition, hospital course, and medical plan of care. Services: Services provided to patient in accordance with Admission requirements found in Title 42 Section 412.3 of the Code of Federal Regulations Patient History Date of Service: 12/27/17 Reason for admission: RECENT CVA. SPEECH ISSUES. History of Present Illness: DR. ARMIJO DECIDED TO ADMIT THIS PATIENT FOR REHAB FOR RECENT STROKE. HE HAS PERSISTENT SPEECH ISSUES. HE IS LEGALLY BLIND AND WALKS HOLDING 'S SHOULDER. Allergies acetaminophen [From Cough And Cold Reliever] Allergy (Verified 10/08/17 09:44) Hives/Rash Antihistamines - Alkylamine Allergy (Verified 10/08/17 09:44) Hives Antihistamines - Ethanolamine Allergy (Verified 10/08/17 09:44) Hives/Rash Antihistamines - Ethylenediamine Allergy (Verified 10/08/17 09:44) Hives/Rash Antihistamines - Piperazine Allergy (Verified 10/08/17 09:44) Hives/Rash Antihistamines - Piperidine Allergy (Verified 10/08/17 09:44) Hives/Rash belladonna alkaloids [From Cough Due To Colds No.7] Allergy (Verified 10/08/17 09:44) Hives/Rash benzocaine [From Cough-X] Allergy (Verified 10/08/17 09:44) Hives celecoxib [From Celebrex] Allergy (Verified 10/08/17 09:44) Hives/Rash chlorpheniramine maleate [From Cough Formula] Allergy (Verified 10/08/17 09:44) Hives codeine [Codeine] Allergy (Verified 10/08/17 09:44) Hives dextromethorphan HBr [From Cough And Cold Reliever] Allergy (Verified 10/08/17 09:44) Hives/Rash doxylamine [From NyQuil] Allergy (Verified 10/08/17 09:44) Hives/Rash doxylamine succinate [From Cough Formula] Allergy (Verified 10/08/17 09:44) Hives glimepiride Allergy (Verified 10/08/17 09:44) Hives/Rash guaifenesin [From Cough And Cold Reliever] Allergy (Verified 10/08/17 09:43) Hives/Rash levofloxacin [From Levaquin] Allergy (Verified 10/08/17 09:43) Hives/Rash lisinopril Allergy (Verified 10/08/17 09:43) Hives/Rash metformin Allergy (Verified 10/08/17 09:43) Hives/Rash mometasone furoate [From Nasonex] Allergy (Verified 10/08/17 09:43) Hives pheniramine maleate [From Cough Syrup] Allergy (Verified 10/08/17 09:43) Hives phenylephrine [From Cough Syrup] Allergy (Verified 10/08/17 09:43) Hives phenylephrine HCl [From Cough And Cold Reliever] Allergy (Verified 10/08/17 09: 43) Hives/Rash phenylpropanolamine HCl [From Cough Syrup] Allergy (Verified 10/08/17 09:43) Hives phosphorus [From Cough Due To Colds No.7] Allergy (Verified 10/08/17 09:43) Hives/Rash pseudoephedrine HCl [From Actifed] Allergy (Verified 10/08/17 09:43) Hives/Rash triprolidine HCl [From Actifed] Allergy (Verified 10/08/17 09:43) Hives/Rash Home Medications: Amlodipine Besylate 10 mg PO DAILY 10/20/16 Aspirin [Aspirin EC 81 MG] 81 mg PO DAILY 10/20/16 Levothyroxine Sodium [Synthroid] 200 mcg PO DAILY 10/20/16 Atorvastatin Calcium [Lipitor] 80 mg PO BEDTIME 12/26/17 Cyanocobalamin [Vitamin B-12] 1,000 mcg PO DAILY 12/26/17 Insulin Glargine,Hum.rec.anlog [Lantus] 20 unit SQ DAILY 12/26/17 - Past Medical/Surgical History Has patient received pneumonia vaccine in the past: No Diabetic: Yes -: HTN -: CVA -: Hypothyroidism -: L ring finger amputation -: R knee sx - Family History Mother -: Diabetes Father -: Diabetes, Other (see notes) Notes: vision/thyroid - Social History Smoking Status: Never smoker Alcohol use: No CD- Drugs: No Caffeine use: Yes Place of Residence: Home Review of Systems 10-point ROS is otherwise unremarkable Physical Examination - Vital Signs Temperature: 96.4 F Blood Pressure: 160/76 Pulse: 60 Respirations: 20 Pulse Ox (%): 98 - Physical Exam General: Mild distress, Obese HEENT: Other (LEGALLY BLIND ) Neck: Supple, 2+ carotid pulse no bruit, No LAD, Without JVD or thyroid abnormality Respiratory: Clear to auscultation bilaterally, Normal air movement Cardiovascular: Regular rate/rhythm, Normal S1 S2 Gastrointestinal: Normal bowel sounds, No tenderness Musculoskeletal: No tenderness Integumentary: No rashes Neurological: Normal gait, Normal speech, Normal strength at 5/5 x4 extr, Normal tone, Normal affect Lymphatics: No axilla or inguinal lymphadenopathy - Studies Laboratory Data (last 24 hrs) 12/27/17 06:14: Sodium 137, Potassium 3.8, BUN 10, Creatinine 1.10, Glucose 191 H, Magnesium 2.2 12/27/17 06:14: WBC 6.6, Hgb 14.5, Hct 42.0, Plt Count 179 Assessment and Plan - Problems (Diagnosis) (1) History of CVA (cerebrovascular accident) Current Visit: Yes Status: Acute Plan: SP ADMISSION TO [facility] NOW IN [facility] FOR PT HE HAS BEEN CLEARED BY MEDICARE. (2) Aphasia Current Visit: Yes Status: Acute Plan: CONTINUE. (3) Diabetes type 2, uncontrolled Current Visit: Yes Status: Chronic Plan: HE HAD REFUSED INSULIN FOR A WHILE UNTIL THIS STROKE ,NOW CAME OUT OF HOSPITAL- WITH INSULIN. Qualifiers: Diabetes mellitus terminal superintendent insulin use: without mcfp use Diabetes mellitus complication status: with circulatory complication - Advance Directives Does patient have a Living Will: No Does patient have a Durable POA for Healthcare: No
[2017-12-27] MEDS: ATORVASTATIN 80 MG TAB PO SCH (21:35)
[2017-12-28] MEDS: LEVOTHYROXINE SOD 0.1 MG TAB PO SCH (05:31)
[2017-12-28] MEDS: INSULIN -REGULAR HUMAN 50 UNIT/0.5 ML ML SQ SCH ×4 (07:30→20:10)
[2017-12-28] MEDS: APIXABAN 2.5 MG TABLET PO SCH ×2 (08:00→08:24)
[2017-12-28] MEDS: CYANOCOBALAMIN 1,000 MCG TAB PO SCH (08:24)
[2017-12-28] MEDS: ASPIRIN EC 81 MG TAB PO SCH (08:24)
[2017-12-28] MEDS: AMLODIPINE 10 MG TAB PO SCH (08:24)
[2017-12-28] MEDS: LANTUS SQ SCH (08:24)
--- NOTE | 2017-12-28 17:59 | P.PN ---
Subjective Date of Service: 12/28/17 Chief Complaint: RECENT CVA. SPEECH ISSUES. Subjective: Improving (EATING WELL. STABLE FOR NOW) Review of Systems 10-point ROS is otherwise unremarkable Neurological: Other (SOME SPEECH ISSUES) Physical Examination - Vital Signs Temperature: 97.2 F Blood Pressure: 154/74 Pulse: 66 Respirations: 16 Pulse Ox (%): 96 - Physical Exam General: Alert, In no apparent distress, Obese HEENT: Atraumatic, PERRLA (BLIND LEGALLY FOR MONTHS.), EOMI Neck: Supple, JVD not distended Respiratory: Clear to auscultation bilaterally, Normal air movement Cardiovascular: Regular rate/rhythm, Normal S1 S2 Gastrointestinal: Normal bowel sounds, No tenderness Musculoskeletal: No tenderness Integumentary: No rashes Neurological: Normal speech, Normal tone, Normal affect Lymphatics: No axilla or inguinal lymphadenopathy - Studies Medications List Reviewed: Yes Assessment And Plan - Current Problems (Diagnosis) (1) History of CVA (cerebrovascular accident) Current Visit: Yes Status: Acute Plan: SP ADMISSION TO [facility] NOW IN [facility] FOR PT HE HAS BEEN CLEARED BY MEDICARE. (2) Aphasia Current Visit: Yes Status: Acute Plan: ST CONTINUE. (3) Diabetes type 2, uncontrolled Current Visit: Yes Status: Chronic Plan: HE HAD REFUSED INSULIN FOR A WHILE UNTIL THIS STROKE ,NOW CAME OUT OF HOSPITAL- WITH INSULIN. WILL ADJUST DOSE EVERY FEW DAYS. Qualifiers: Diabetes mellitus termite technician insulin use: without termite technician use Diabetes mellitus complication status: with circulatory complication
[2017-12-28] MEDS: ATORVASTATIN 80 MG TAB PO SCH (20:09)
[2017-12-29] MEDS: LEVOTHYROXINE SOD 0.1 MG TAB PO SCH (05:00)
[2017-12-29] MEDS: INSULIN -REGULAR HUMAN 50 UNIT/0.5 ML ML SQ SCH ×5 (07:29→20:39)
[2017-12-29] MEDS: CYANOCOBALAMIN 1,000 MCG TAB PO SCH (07:52)
[2017-12-29] MEDS: ASPIRIN EC 81 MG TAB PO SCH (07:52)
[2017-12-29] MEDS: AMLODIPINE 10 MG TAB PO SCH (07:52)
[2017-12-29] MEDS: LANTUS SQ SCH (07:53)
--- NOTE | 2017-12-29 12:01 | P.PN ---
Subjective Date of Service: 12/29/17 Chief Complaint: RECENT CVA. SPEECH ISSUES. Subjective: Improving Review of Systems 10-point ROS is otherwise unremarkable Physical Examination - Vital Signs Temperature: 98.2 F Blood Pressure: 161/77 Pulse: 62 Respirations: 16 Pulse Ox (%): 98 - Physical Exam General: In no apparent distress, Mild distress, Obese HEENT: Atraumatic, PERRLA (LEGALLY BLIND FOR YEARS.), EOMI Neck: Supple, JVD not distended Respiratory: Clear to auscultation bilaterally, Normal air movement Cardiovascular: Regular rate/rhythm, Normal S1 S2 Gastrointestinal: Normal bowel sounds, No tenderness Musculoskeletal: No tenderness Integumentary: No rashes Neurological: Normal speech (IMPROVING OVER TIME.), Normal tone, Normal affect Lymphatics: No axilla or inguinal lymphadenopathy - Studies Medications List Reviewed: Yes Assessment And Plan - Current Problems (Diagnosis) (1) History of CVA (cerebrovascular accident) Current Visit: Yes Status: Acute Plan: SP ADMISSION TO [facility] HE HAS BEEN CLEARED BY MEDICARE. (2) Aphasia Current Visit: Yes Status: Acute Plan: CONTINUE. (3) Diabetes type 2, uncontrolled Current Visit: Yes Status: Chronic Plan: HE HAD REFUSED INSULIN FOR A WHILE UNTIL THIS STROKE ,NOW CAME OUT OF HOSPITAL- WITH INSULIN. WILL ADJUST DOSE EVERY FEW DAYS. RAISE INSULIN AGAIN. Qualifiers: Diabetes mellitus terminal superintendent insulin use: without alf use Diabetes mellitus complication status: with circulatory complication
[2017-12-29] MEDS: ATORVASTATIN 80 MG TAB PO SCH (20:39)
[2017-12-30] MEDS: LEVOTHYROXINE SOD 0.1 MG TAB PO SCH (05:22)
[2017-12-30 06:43] LABS: Albumin 3.4 g/dL (3.4-5.0); Potassium 4.4 mmol/L (3.5-5.1); Prealbumin 19.3 mg/dL (20-40)
[2017-12-30 06:44] LABS: Absolute Lymphocytes (CBC) 1.7 K/uL (0.7-4.9); Absolute Monocytes 0.7 K/uL (0.1-1.3); Absolute Neutrophil 3.9 K/uL (1.8-8.0); Basophils % 0.6 % (0-1.3); Eosinophils % 3.5 % (0-4.4); Lymphocytes % 25.6 % (15.3-44.8); MCH 30.8 pg (27.0-35.0); MCV 90.4 fL (80-100); MPV 9.1 fL (7.6-11.3); Monocytes % 10.7 % (3.3-12.3); RBC Red Blood Cell Count 4.76 M/uL (4.33-5.43)
[2017-12-30] MEDS: INSULIN -REGULAR HUMAN 50 UNIT/0.5 ML ML SQ SCH ×4 (07:30→20:41)
[2017-12-30] MEDS ORDERED: APIXABAN 2.5 MG TABLET PO SCH (08:00)
[2017-12-30] MEDS: LANTUS INSULIN SQ SCH (08:05)
[2017-12-30] MEDS: ASPIRIN EC 81 MG TAB PO SCH (08:25)
[2017-12-30] MEDS: CYANOCOBALAMIN 1,000 MCG TAB PO SCH (08:25)
[2017-12-30] MEDS: AMLODIPINE 10 MG TAB PO SCH (08:25)
[2017-12-30] MEDS: ATORVASTATIN 80 MG TAB PO SCH (20:10)
[2017-12-31] MEDS: LEVOTHYROXINE SOD 0.1 MG TAB PO SCH (05:07)
[2017-12-31] MEDS: INSULIN -REGULAR HUMAN 50 UNIT/0.5 ML ML SQ SCH ×4 (07:30→21:35)
[2017-12-31] MEDS: LANTUS INSULIN SQ SCH (08:00)
[2017-12-31] MEDS: CYANOCOBALAMIN 1,000 MCG TAB PO SCH (08:15)
[2017-12-31] MEDS: AMLODIPINE 10 MG TAB PO SCH (08:15)
[2017-12-31] MEDS: ASPIRIN EC 81 MG TAB PO SCH (08:15)
--- NOTE | 2017-12-31 10:13 | P.RH.PN ---
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 Aide Goal: Mobility, Transfers, Self Care Vital Signs: Last Vital Signs Temp 97.0 F 12/31/17 06:40 Pulse 63 12/31/17 08:15 Resp 18 12/31/17 06:40 BP 132/74 12/31/17 08:15 Pulse Ox 94 12/31/17 06:40 Laboratory: Laboratory Last Values WBC 6.6 K/uL (4.3-10.9) 12/30/17 06:07 RBC 4.76 M/uL (4.33-5.43) 12/30/17 06:07 Hgb 14.6 g/dL (13.6-17.9) 12/30/17 06:07 Hct 43.0 % (39.6-49.0) 12/30/17 06:07 MCV 90.4 fL (80-100) 12/30/17 06:07 MCH 30.8 pg (27.0-35.0) 12/30/17 06:07 MCHC 34.0 g/dL (32.0-36.0) 12/30/17 06:07 RDW 13.4 % (12.1-15.2) 12/30/17 06:07 Plt Count 183 K/uL (152-406) 12/30/17 06:07 MPV 9.1 fL (7.6-11.3) 12/30/17 06:07 Neutrophils % 59.6 % (41.7-73.7) 12/30/17 06:07 Lymphocytes % 25.6 % (15.3-44.8) 12/30/17 06:07 Monocytes % 10.7 % (3.3-12.3) 12/30/17 06:07 Eosinophils % 3.5 % (0-4.4) 12/30/17 06:07 Basophils % 0.6 % (0-1.3) 12/30/17 06:07 Absolute Neutrophils 3.9 K/uL (1.8-8.0) 12/30/17 06:07 Absolute Lymphocytes 1.7 K/uL (0.7-4.9) 12/30/17 06:07 Absolute Monocytes 0.7 K/uL (0.1-1.3) 12/30/17 06:07 Absolute Eosinophils 0.2 K/uL (0-0.5) 12/30/17 06:07 Absolute Basophils 0.0 K/uL (0-0.5) 12/30/17 06:07 Sodium 138 mmol/L (136-145) 12/30/17 06:07 Potassium 4.4 mmol/L (3.5-5.1) 12/30/17 06:07 Chloride 104 mmol/L (98-107) 12/30/17 06:07 Carbon Dioxide 30 mmol/L (21-32) 12/30/17 06:07 BUN 16 mg/dL (7-18) 12/30/17 06:07 Creatinine 1.20 mg/dL (0.55-1.3) 12/30/17 06:07 Estimated GFR 60 mL/min (=/>90) L 12/30/17 06:07 Glucose 221 mg/dL (74-106) H 12/30/17 06:07 POC Glucose 185 mg/dl (65-120) H 12/31/17 07:07 Calcium 9.0 mg/dL (8.5-10.1) 12/30/17 06:07 Magnesium 2.2 mg/dL (1.8-2.4) 12/27/17 06:14 Albumin 3.4 g/dL (3.4-5.0) 12/30/17 06:07 Prealbumin 19.3 mg/dL (20-40) L 12/30/17 06:07 Urine Color Yellow 12/26/17 16:35 Urine Appearance Clear 12/26/17 16:35 Urine pH 6.0 (5.0-7.0) 12/26/17 16:35 Ur Specific [place] <=1.005 (1.005-1.030) 12/26/17 16:35 Urine Ketones Negative (NEG) 12/26/17 16:35 Urine Blood Negative (NEG) 12/26/17 16:35 Urine Nitrite Negative (NEG) 12/26/17 16:35 Urine Bilirubin Negative (NEG) 12/26/17 16:35 Urine Urobilinogen 1.0 mg/dL (0.2-1.0) 12/26/17 16:35 Ur Leukocyte Esterase Negative (NEG) 12/26/17 16:35 Urine RBC None seen /HPF (NONE SEEN) 12/26/17 16:35 Urine WBC <5 /HPF (<5) 12/26/17 16:35 Ur Squamous Epith Cells LAMINATED 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 His prealbumin is mildly low at 19.3. He is doing very well with speech, occupational and physical therapy. His is at minimum assistance with speech improved from moderate assistance. He is independent with physical and occupational therapy. He is limited somewhat due to poor vision. He will be discharged home on Wednesday and will have home health. Functional Improvement: pt has demonstrated good progress towards functional goals. pt is currently able to ambulate independently throughout the unit. pt does continue to present with some visual deficits. pt requires training with car transfers as well. Functional Improvement Occupational Therapy: PATIENT HAS MET ALL LTG, HOWEVER, BENEFITS FROM FURTHER OT TO ADDRESS OVERALL ENDURANCE AND DEXTERITY. Speech Therapy Update: Patient is responding well to treatment and using compensatory strategies to increase communication. Receptive language skills are at MIN A level. Verbal espression and MOD A. Patient has difficulty with thought organization and word retrieval in conversation. He exhibits some mild signs of tension associated with self imposed pressure as he wants to convey information quickly and precisely. Relaxation techniques and slower pace has been introduced and patient has responded well to this. Content in verbal utterances has increased. He performs better in unstructured tasks and at end of session. He requires verbal repetition priming to recall information (MIN to MOD A) as vision is very limited. Problem solving is at MOD A. Summary: Patient's care plan and half-way goals have been reviewed and revised as necessary. Please see the Rehabilitation Signature page for all necessary signatures.
--- NOTE | 2017-12-31 17:34 | P.PN ---
Subjective Date of Service: 12/31/17 Chief Complaint: RECENT CVA. SPEECH ISSUES. Subjective: Improving (WALKS WELL, SPEAKING BETTER.) Review of Systems 10-point ROS is otherwise unremarkable Eyes: Vision Change (LEGALLY BLIND FOR LONG DURATION.) Physical Examination - Vital Signs Temperature: 97.0 F Blood Pressure: 132/74 Pulse: 63 Respirations: 18 Pulse Ox (%): 94 - Physical Exam HEENT: Atraumatic, PERRLA, EOMI Neck: Supple, JVD not distended Respiratory: Clear to auscultation bilaterally, Normal air movement Cardiovascular: Regular rate/rhythm, Normal S1 S2 Gastrointestinal: Normal bowel sounds, No tenderness Musculoskeletal: No tenderness Integumentary: No rashes Neurological: Normal speech, Normal tone, Normal affect Lymphatics: No axilla or inguinal lymphadenopathy - Studies Medications List Reviewed: Yes Assessment And Plan - Current Problems (Diagnosis) (1) History of CVA (cerebrovascular accident) Current Visit: Yes Status: Acute Plan: SP ADMISSION TO [facility] NOW IN [facility] FOR PT HE HAS BEEN CLEARED BY MEDICARE. (2) Aphasia Onset Date: 12/30/17 Current Visit: Yes Status: Acute Plan: CONTINUE. (3) Diabetes type 2, uncontrolled Onset Date: 12/30/17 Current Visit: Yes Status: Chronic Plan: HE HAD REFUSED INSULIN FOR A WHILE UNTIL THIS STROKE ,NOW CAME OUT OF HOSPITAL- WITH INSULIN. WILL ADJUST DOSE EVERY FEW DAYS. RAISE INSULIN AGAIN. 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
[2017-12-31] MEDS: ATORVASTATIN 80 MG TAB PO SCH (20:25)
[2018-01-01] MEDS: LEVOTHYROXINE SOD 0.1 MG TAB PO SCH (05:12)
[2018-01-01 05:52] VITALS: BMI 32.5
[2018-01-01 06:53] VITALS: BP 141/70; TEMP 97
[2018-01-01] MEDS: INSULIN -REGULAR HUMAN 50 UNIT/0.5 ML ML SQ SCH ×3 (07:30→17:05)
[2018-01-01] MEDS: LANTUS INSULIN SQ SCH (08:00)
[2018-01-01] MEDS: ASPIRIN EC 81 MG TAB PO SCH (08:14)
[2018-01-01] MEDS: CYANOCOBALAMIN 1,000 MCG TAB PO SCH (08:14)
[2018-01-01] MEDS: AMLODIPINE 10 MG TAB PO SCH (08:14)
--- NOTE | 2018-01-01 09:41 | P.PN ---
Subjective Date of Service: 01/01/18 Chief Complaint: RECENT CVA. SPEECH ISSUES. Subjective: Improving (BACK TO BASELINE.) Review of Systems 10-point ROS is otherwise unremarkable Eyes: Vision Change (LEGALLY BLIND) Physical Examination - Vital Signs Temperature: 97 F Blood Pressure: 141/70 Pulse: 60 Respirations: 16 Pulse Ox (%): 97 - Physical Exam General: Alert, In no apparent distress HEENT: Atraumatic, PERRLA, EOMI Neck: Supple, JVD not distended Respiratory: Clear to auscultation bilaterally, Normal air movement Cardiovascular: Regular rate/rhythm, Normal S1 S2 Gastrointestinal: Normal bowel sounds, No tenderness Musculoskeletal: No tenderness Integumentary: No rashes Neurological: Normal speech, Normal tone, Normal affect Lymphatics: No axilla or inguinal lymphadenopathy - Studies Medications List Reviewed: Yes Assessment And Plan - Current Problems (Diagnosis) (1) History of CVA (cerebrovascular accident) Current Visit: Yes Status: Acute Plan: SP ADMISSION TO [facility] NOW IN [facility] FOR PT HE HAS BEEN CLEARED BY MEDICARE. (2) Aphasia Onset Date: 12/30/17 Current Visit: Yes Status: Acute Plan: ST CONTINUE. NO MORE APHASIA DC IN AM. (3) Diabetes type 2, uncontrolled Onset Date: 12/30/17 Current Visit: Yes Status: Chronic Plan: HE HAD REFUSED INSULIN FOR A WHILE UNTIL THIS STROKE ,NOW CAME OUT OF HOSPITAL- WITH INSULIN. WILL ADJUST DOSE EVERY FEW DAYS. RAISE INSULIN AGAIN. Qualifiers: Diabetes mellitus rn relief charge insulin use: without intermediate use Diabetes mellitus complication status: with circulatory complication
[2018-01-02] MEDS ORDERED: LANTUS INSULIN SQ SCH (08:00)
[2018-01-02] MEDS ORDERED: HOME MED 1 EA UNK SQ SCH (08:00)
--- NOTE | 2018-01-09 11:23 | P.DS ---
Admission Date: 12/26/17 Discharge Date: 01/09/18 Disposition: ROUTINE DISCHARGE Discharge Condition: GOOD Reason for Admission: RECENT CVA. SPEECH ISSUES. Consultations: THIS PATIENT WAS ADMITTED AND DCED BY DR VU ON REHAB. HE SHOULD DO THE DC SUMMARY. PLEASE NOTE FOR FUTURE THAT REHAB ADMISSIONS ARE [facility] PATIENTS. - Problems (1) History of CVA (cerebrovascular accident) Status: Acute (2) Aphasia Onset Date: 12/30/17 Status: Acute (3) Diabetes type 2, uncontrolled Onset Date: 12/30/17 Status: Chronic Brief History of Present Illness: DR. ARMIJO DECIDED TO ADMIT THIS PATIENT FOR REHAB FOR RECENT STROKE. HE HAS PERSISTENT SPEECH ISSUES. HE IS LEGALLY BLIND AND WALKS HOLDING 'S SHOULDER. Vital Signs/Physical Exam: Temp Pulse Resp BP Pulse Ox 97 F 60 16 141/70 H 97 01/01/18 09:41 01/01/18 09:41 01/01/18 09:41 01/01/18 09:41 01/01/18 09:41 Laboratory Data at Discharge: WBC 6.6 K/uL (4.3-10.9) 12/30/17 06:07 Hgb 14.6 g/dL (13.6-17.9) 12/30/17 06:07 Hct 43.0 % (39.6-49.0) 12/30/17 06:07 Plt Count 183 K/uL (152-406) 12/30/17 06:07 Sodium 138 mmol/L (136-145) 12/30/17 06:07 Potassium 4.4 mmol/L (3.5-5.1) 12/30/17 06:07 BUN 16 mg/dL (7-18) 12/30/17 06:07 Creatinine 1.20 mg/dL (0.55-1.3) 12/30/17 06:07 Glucose 221 mg/dL (74-106) H 12/30/17 06:07 Magnesium 2.2 mg/dL (1.8-2.4) 12/27/17 06:14 Home Medications: Amlodipine Besylate 10 mg PO DAILY 10/20/16 Aspirin [Aspirin EC 81 MG] 81 mg PO DAILY 10/20/16 Levothyroxine Sodium [Synthroid] 200 mcg PO DAILY 10/20/16 Atorvastatin Calcium [Lipitor] 80 mg PO BEDTIME 12/26/17 Cyanocobalamin [Vitamin B-12*] 1,000 mcg PO DAILY 12/26/17 Levothyroxine [Synthroid*] 0.2 mg PO [id number] tab 12/31/17 Pen Needle, Diabetic [Insulin Pen Needle] 1 dis.ndl MC DAILY #90 dis.ndl Insulin Glargine Human [Lantus] 35 unit SQ DAILY #1 ml 01/01/18 New Medications: Insulin Glargine Human [Lantus] 35 unit SQ DAILY #1 ml Pen Needle, Diabetic [Insulin Pen Needle] 1 dis.ndl MC DAILY #90 dis.ndl Diet: ADA Activity: Weight bearing as tolerated Followup: Mahad Armijo MD [ASSOCIATE-ACTIVE - CAN ADMIT] - Robert Darden MD [Family Provider] -
== END 2018-01-01 18:15 | disposition home or self-care (01) | DRG 57 ==
LOC: 5TH 15:38
PROVIDERS: ADMIT Psychiatry & Neurology Neurology with Special Qualifications in Child Neurology; ATTEND Psychiatry & Neurology Neurology with Special Qualifications in Child Neurology
DX: I69.320 Aphasia following cerebral infarction (principal); E11.65 Type 2 diabetes mellitus with hyperglycemia
CPT/HCPCS: 36415; 80048; 81001; 81003; 82040; 82962; 83735; 84134; 85025

== ENCOUNTER 2018-01-17 09:18 | Emergency (ER) | payer OTHER, MEDICARE ==
--- OUTSIDE RECORDS SUMMARY | 2018-01-17 09:20 | XMS REPORT | Clinical Summary ---
:1945 Author Organization [facility] Address [address] [place] [address] Phone Care Team Providers Name Role Phone Unavailable Primary Care Provider Unavailable Allergies Active Allergy Reactions Severity Noted Date Comments Levofloxacin Rash Medium 12/17/2017 Celecoxib 12/17/2017 Chlorpheniramine-Phenylpropan 12/17/2017 Corticosteroids (Glucocorticoids) 12/17/2017 Losartan 12/17/2017 Metformin 12/17/2017 Thiazides 12/17/2017 Current Medications Prescription Sig. Disp. Refills Start End Date Status Date aspirin 81 MG EC Take 81 mg by Active tablet mouth daily. atorvastatin Take 1 tablet (80 30 tablet 3 12/19/19 Active (LIPITOR) 80 MG mg total) by mouth 8 19 tablet nightly. levothyroxine Take 1 tablet (200 30 tablet 3 Active (SYNTHROID, mcg total) by 8 LEVOTHROID) 200 MCG mouth Every tablet morning on an empty stomach. amLODIPine Take 1 tablet (10 30 tablet 3 Active (NORVASC) 10 MG mg total) by mouth 8 tablet daily. insulin glargine Inject 20 Units 6 mL 3 Active (LANTUS) 100 subcutaneously 8 unit/mL (3 mL) InPn every morning. cyanocobalamin 1000 Take 1 tablet 0 12/19/19 Active MCG tablet (1,000 mcg total) 8 19 by mouth daily. amLODIPine Take 5 mg by mouth 12/19/19 Discontinued (NORVASC) 2.5 MG daily. 18 tablet glipiZIDE Take 2.5 mg by 12/19/19 Discontinued (GLUCOTROL XL) 2.5 mouth daily. 18 MG 24 hr tablet levothyroxine Take 175 mcg by 12/19/19 Discontinued (SYNTHROID, mouth Every 18 LEVOTHROID) 175 MCG morning on an tablet empty stomach. glimepiride Take 2 mg by mouth 12/19/19 Discontinued (AMARYL) 2 MG every morning 18 tablet before breakfast. Active Problems Problem Noted Date Left carotid artery stenosis 12/18/2017 B12 deficiency 12/18/2017 Macular degeneration 12/17/2017 Essential hypertension 12/17/2017 Other specified hypothyroidism 12/17/2017 Acute left parietal, temporal and occipital strokes 12/17/2017 Type 2 diabetes mellitus with hyperglycemia, without long-term current use of insulin (HCC) Encounters Date Type Specialty Care Team Description 12/17/2017 - Hospital Encounter Cardiology Altagracia Stark Acute left parietal , 12/18/2017 Crystal Pérez temporal and occipital strokes Sherwin Mallory (Primary G., Dx);Cerebrovascular accident (CVA), unspecified mechanism (HCC);Essential hypertension;Macular degeneration of both eyes, unspecified type;Other specified hypothyroidism;Acute ischemic left MCA stroke (HCC);Aphasia;Hemian opia;Hemisensory deficit;Neurologic gait dysfunction;Sudden visual loss of both eyes 12/17/2017 Orders Only General Internal Medicine after 01/16/2017 Social History Tobacco Use Types Packs/Day Years Used Date Never Smoker Smokeless Tobacco: Never Used Alcohol Use Drinks/Week oz/Week Comments No Sex Assigned at Date Recorded Not on file Last Filed Vital Signs Vital Sign Reading Time Taken Blood Pressure 167/86 12/18/2017 3:51 PM CDT Pulse 78 12/18/2017 12:56 PM CDT Temperature 35.9 C (96.6 F) 12/18/2017 12:56 PM CDT Respiratory Rate 18 12/18/2017 12:56 PM CDT Oxygen Saturation 96% 12/18/2017 12:56 PM CDT Inhaled Oxygen Concentration - - Weight 103.6 kg (228 lb 4.8 oz) 12/17/2017 12:00 AM CDT Height 175.3 cm (5' 9") 12/17/2017 12:00 AM CDT Body Mass Index 33.71 12/17/2017 12:00 AM CDT Plan of Treatment Not on file Results RHYTHM STRIP - SCAN (12/21/2017 2:12 PM)POC-Glucose meter (12/18/2017 12:18 PM) Only the most recent of6 resultswithin the time period is included. Component Value Ref Range POC-Glucose Meter 315 (H)Comment: Notified RED JAQUEZ/TESTED AT [facility] 6720 70 - 110 mg/dL [facility] [address] Specimen Performing Laboratory Blood [address] [address] CBC with platelet count + automated diff (12/18/2017 5:32 AM)Only the most recent of2 resultswithin the time period is included. Component Value Ref Range WBC 6.9 3.5 - 10.5 K/L RBC 5.14 4.63 - 6.08 M/L Hemoglobin 15.6 13.7 - 17.5 GM/DL Hematocrit 46.3 40.1 - 51.0 % MCV 90.1 79.0 - 92.2 fL MCH 30.4 25.7 - 32.2 pg MCHC 33.7 32.3 - 36.5 GM/DL RDW 12.5 11.6 - 14.4 % Platelets 172 150 - 450 K/CU MM MPV 11.2 9.4 - 12.4 fL nRBC 0 0 - 0 /100 WBC % Neutros 60 % % Lymphs 26 % % Monos 10 % % Eos 3 % % Baso 1 % # Neutros 4.11 1.78 - 5.38 K/L # Lymphs 1.79 1.32 - 3.57 K/L # Monos 0.66 0.30 - 0.82 K/L # Eos 0.22 0.04 - 0.54 K/L # Baso 0.04 0.01 - 0.08 K/L Immature Granulocytes-Relative 1 0 - 1 % Specimen Performing Laboratory Blood [id number] [place] [address] Intrinsic factor blocking antibody (12/18/2017 5:32 AM) Component Value Ref Range Intrinsic Factor Block Ab POSITIVE (A) ADULTS: NEGATIVE Comment: For additional information, please refere to [email or web address] (This link is being provided for informational/educational purposes only.) Specimen Performing Laboratory Blood [facility] [address] [address] Narrative Performing Lab [facility] [address] [address] Amie Stroud MD, PhD, [place] CBC with platelet count + automated diff (12/18/2017 5:32 AM)Only the most recent of2 resultswithin the time period is included. Specimen Performing Laboratory Blood Narrative The following orders were created for panel order CBC with platelet count + automated diff. Procedure Abnormality Status --------- ------ CBC with platelet count ...[[id number]]Final result Please view results for these tests on the individual orders. Magnesium (12/18/2017 5:32 AM)Only the most recent of2 resultswithin the time period is included. Component Value Ref Range Magnesium 2.2Comment: Specimen slightly hemolyzed 1.6 - 2.6 mg/dL Specimen Performing Laboratory Blood [address] [address] Basic metabolic panel (12/18/2017 5:32 AM)Only the most recent of2 resultswithin the time period is included. Component Value Ref Range Sodium 133 (L) 136 - 145 meq/L Potassium 4.0Comment: Specimen slightly hemolyzed 3.5 - 5.1 meq/L Chloride 101 98 - 107 meq/L CO2 24 22 - 29 meq/L BUN 17 7 - 21 mg/dL Creatinine 1.19Comment: Specimen slightly hemolyzed 0.57 - 1.25 mg/dL Glucose 315 (H) 70 - 105 mg/dL Calcium 9.5 8.4 - 10.2 mg/dL EGFR 60Comment: ESTIMATED GFR IS NOT ACCURATE mL/min/1.73 sq m CREATININE CLEARANCE IN PREDICTING GLOMERULAR FILTRATION RATE. ESTIMATED GFR IS NOT APPLICABLE FOR DIALYSIS PATIENTS. Specimen Performing Laboratory Blood [address] [address] MR brain without IV contrast (12/17/2017 9:24 PM) Specimen Performing Laboratory [facility] RIS Narrative FINAL REPORT MRI Brain without contrast Clinical History: [...] There is mild periventricular and subcortical white matter T2 hyperintensity, which is nonspecific but compatible with chronic microvascular ischemic change. There is generalized parenchymal volume loss without hydrocephalus, midline shift, or apparent mass effect. There are no extra-axial fluid collections. The craniocervical junction is preserved. There is attenuation of the left middle cerebral artery flow void. IMPRESSION: Acute left parietal, temporal, and occipital infarcts without hemorrhage. Attenuated left middle cerebral artery flow void. Signed: Chaparro Gomes MD Report Verified Date/Time:12/17/2017 21:30:55 Reading Location: [facility] Radiology Reading Room Procedure Note Interface, External Ris In - 12/17/2017 9:33 PM CDT FINAL REPORT MRI Brain without contrast Clinical History: [...] There is mild periventricular and subcortical white matter T2 hyperintensity, which is nonspecific but compatible with chronic microvascular ischemic change. There is generalized parenchymal volume loss without hydrocephalus, midline shift, or apparent mass effect. There are no extra-axial fluid collections. The craniocervical junction is preserved. There is attenuation of the left middle cerebral artery flow void. IMPRESSION: Acute left parietal, temporal, and occipital infarcts without hemorrhage. Attenuated left middle cerebral artery flow void. Signed: Chaparro Gomes MD Report Verified Date/Time: 12/17/2017 21:30:55 Reading Location: [facility] Radiology Reading Room neck without IV contrast (12/17/2017 9:24 PM) Specimen Performing Laboratory RIS Narrative FINAL REPORT MRA Head CLINICAL HISTORY: Stroke TECHNIQUE: MRA of the head utilizing 3-D ccvh-cr-yalbdr technique, with 3-D reconstructions. COMPARISON: None FINDINGS: There is severe stenosis of the proximal left middle cerebral artery with loss of several distal branch vessels. There is severe stenosis of the proximal [...] of the neck utilizing 2-D and 3-D mufh-cg-cevwlu technique, with 3-D reconstructions. COMPARISON: None IMPRESSION: There is 66% stenosis of the proximal left internal carotid artery by NASCET criteria. There is 20% stenosis of the proximal right internal carotid artery by NASCET criteria. There is severe attenuation of the left vertebral artery. There is preserved antegrade flow in the right vertebral artery. Signed: Chaparro Gomes MD Report Verified Date/Time:12/17/2017 21:41:27 Reading Location: [facility] Reading Room Procedure Note Interface, External Ris In - 12/17/2017 9:43 PM CDT FINAL REPORT MRA Head CLINICAL HISTORY: Stroke TECHNIQUE: MRA of the head utilizing 3-D ksaj-eq-obadeg technique, with 3-D reconstructions. COMPARISON: None FINDINGS: There is severe stenosis of the proximal left middle cerebral artery with loss of several distal branch vessels. There is severe stenosis of the proximal [...] of the neck utilizing 2-D and 3-D ssxv-wf-aarmez technique, with 3-D reconstructions. COMPARISON: None IMPRESSION: There is 66% stenosis of the proximal left internal carotid artery by NASCET criteria. There is 20% stenosis of the proximal right internal carotid artery by NASCET criteria. There is severe attenuation of the left vertebral artery. There is preserved antegrade flow in the right vertebral artery. Signed: Chaparro Gomes MD Report Verified Date/Time: 12/17/2017 21:41:27 Reading Location: [facility] Radiology Reading Room head without IV contrast (12/17/2017 9:24 PM) Specimen Performing Laboratory [facility] Narrative FINAL REPORT MRA Head CLINICAL HISTORY: Stroke TECHNIQUE: MRA of the head utilizing 3-D kexz-rh-qgyinq technique, with 3-D reconstructions. COMPARISON: None FINDINGS: There is severe stenosis of the proximal left middle cerebral artery with loss of several distal branch vessels. There is severe stenosis of the proximal [...] of the neck utilizing 2-D and 3-D babp-vm-bamhcx technique, with 3-D reconstructions. COMPARISON: None IMPRESSION: There is 66% stenosis of the proximal left internal carotid artery by NASCET criteria. There is 20% stenosis of the proximal right internal carotid artery by NASCET criteria. There is severe attenuation of the left vertebral artery. There is preserved antegrade flow in the right vertebral artery. Signed: Chaparro Gomes MD Report Verified Date/Time:12/17/2017 21:41:27 Reading Location: [facility] Radiology Reading Room Procedure Note Interface, External Ris In - 12/17/2017 9:43 PM CDT FINAL REPORT MRA Head CLINICAL HISTORY: Stroke TECHNIQUE: MRA of the head utilizing 3-D ktph-bs-sqlaou technique, with 3-D reconstructions. COMPARISON: None FINDINGS: There is severe stenosis of the proximal left middle cerebral artery with loss of several distal branch vessels. There is severe stenosis of the proximal [...] of the neck utilizing 2-D and 3-D oqvk-ws-hkkmfx technique, with 3-D reconstructions. COMPARISON: None IMPRESSION: There is 66% stenosis of the proximal left internal carotid artery by NASCET criteria. There is 20% stenosis of the proximal right internal carotid artery by NASCET criteria. There is severe attenuation of the left vertebral artery. There is preserved antegrade flow in the right vertebral artery. Signed: Chaparro Gomes MD Report Verified Date/Time: 12/17/2017 21:41:27 Reading Location: [facility] Radiology Reading Room CARDIOGRAM REPORT - SCAN (12/17/2017 5:20 PM)Methylmalonic acid (2017 2:25 PM) Component Value Ref Range Methlymalonic Acid,Ser 2010 (H) 87 - 318 nmol/L Comment: This test was developed and its analytical performance characteristics have been determined by [facility]. It has not been cleared or approved by FDA. This assay has been validated pursuant to the CLIA regulations and is used for clinical purposes. Specimen Performing Laboratory Blood - Arm, Right [facility] [address] [address] Narrative Performing Lab E[facility] [address] [address] Amie Stroud MD, PhD, [place] Homocysteine (12/17/2017 2:25 PM) Component Value Ref Range Homocysteine 16.8 (H) 5.1 - 15.4 umol/L Specimen Performing Laboratory Blood - Arm, [address] [address] Vitamin B12 (12/17/2017 2:25 PM) Component Value Ref Range Vitamin B12 <146 (L) 213 - 816 pg/mL Specimen Performing Laboratory Blood - Arm, [address] [address] 2D Echo W/O Doppler(No Doppler) (12/17/2017 11:34 AM) Component Value Ref Range Ejection Fraction Specimen Performing Laboratory [facility] ECHO HEARTLAB MKCKESSON CPACS Narrative Transthoracic Echocardiography Report (TTE) Demographics Patient NameRADHA AGUILAR Date of Study2017 Male Visit [id number] Unknown Room Number 2415 Number Date of 1945Referring Orly Stark Age 72 year(s)SonographFarooq Perez RDCS 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 Clinical History DM;HTN HGB 14.5 HCT 43.2 % Contrast Medium: Definity. Height: 69 inches Weight: 103.87 kg (229 lbs) BSA: 2.19 m^2 BMI: 33.82 kg/m^2 HR: 72 bpm BP: 212/106 mmHg Summary 1. The left ventricle is chamber size (by vol index) is normal. Normal LV wall thickness. All segments are hyperdynamic. Global LV systolic function hyperdynamic . LVEF by Parker's method of disk assessment is increased (>70%) . Grade 1 diastolic dysfunction (impaired relaxation and low-normal LA pressure). LA size is normal (16-34 ml/m2) . 2. The right ventricular chamber size and systolic function are within normal limits. RA cavity size is normal. Unable to estimate peak systolic PA pressure; inadequate TR velocity signal. 3. No significant valvular abnormalities. 4. IV saline contrast injection was negative for a PFO (patent foramen ovale) at rest and post Valsalva . Previous Study No prior studies available for comparison. Signature Findings Technical Quality: Technically adequate exam. Left Ventricle The LV apex is incompletely visualized due to foreshortening. LV endocardium is adequately visualized with IV ultrasound enhancing agent. The left ventricle is chamber size (by vol index) is normal (male - LVED vol - 34-74ml/m2). Normal LV wall thickness. All LV segments are hyperdynamic. Global LV systolic function hyperdynamic . LVEF by Parker's method of disk assessment is increased (>70%) . The LVEF was measured using Parker's bi-plane method of disk . Low (cardiac index <2 L/min/m2) cardiac output state at rest is noted. Grade 1 diastolic dysfunction (impaired relaxation and low-normal LA pressure). Left AtriumLA size is normal (16-34 ml/m2) . Right VentricleThe right ventricular chamber size and systolic function are within normal limits. Right Atrium RA cavity size is normal . Atrial SeptumIV saline contrast injection was negative for a PFO (patent foramen ovale) at rest and post Valsalva . Aortic Valve Normal AoV structure and function. Mitral Valve Mild mitral annular calcification. No evidence of mitral regurgitation. Tricuspid ValveTV structure is normal. A trace of tricuspid regurgitation. Unable to estimate peak systolic PA pressure; inadequate TR velocity signal. Pulmonic Valve Normal PV structure and function by limited views and Doppler. AortaAortic root size (SInus of Valsalva diameter) is normal . PericardiumNo pericardial effusion is visualized. IVC/SVC/PA/PV/PleuralThe estimated RA pressure by IVC dynamics 0-5mmHg . The inferior vena cava size is normal . The inferior vena cava is adequately visualized. Chambers/Structures Left Atrium LA Volume: 59.47 ml LA Area: 19.01 cm^ 2 LA Vol. Index: 27 ml/m^2 Left Ventricle LVIDd: 4.66 cm LVIDs: 3 cm LV Septum Diastolic: 0.94 cm LV PW Diastolic: 1.09 cmLV FS: 35.6 % LVEDV Parker's:135.04 ml LVESV Parker's:40.18 mlLVEDVI: 62 ml/ m^2 LVEF Parker's: 70.2 %LVESVI: 18 ml/m^2 LVOT Diameter: 2.1 cm Aorta Ao Root S of Judie.: 3.35 cm Ascending Aorta: 3.5 cm Doppler/Quantitative Measurements Mitral Valve MV Peak E-Wave: 0.64 m/sMV Peak A-Wave: 0.96 m/s E/ A Ratio: 0.66 Peak Gradient: 1.62 mmHg Deceleration Time: 272.3 msec MV Mohinder. Peak: Tissue Doppler E' Septal Velocity: 0.07 m/sE/E': 9.46 Aortic Valve Peak Velocity: 0.91 m/sMean Velocity: 0.71 m/s Peak Gradient: 3.33 mmHg Mean Gradient: 2.18 mmHg AV Area (continuity): 2.89 cm^2 AV VTI: 19.3 cm AV DVI: 0.83 LVOT Peak Velocity: 0.75 m/s Peak Gradient: 2.26 mmHg Mean Velocity: 0.53 m/s Mean Gradient: 1.28 mmHg LVOT Diameter: 2.1 cm LVOT VTI: 16.09 cm LVOT Area: 3.46 cm^2LVOT SV:55.7 ml LVOT CO: 4.01 l/min LVOT CI: 1.83 l/min/m^2 Procedure Note Interface, External Ris In - 12/17/2017 4:56 PM CDT Transthoracic Echocardiography Report (TTE) Demographics Patient Name RADHA AGUILAR Date of Study 12/17/2017 Gender Male Visit Number [id number] Race Unknown Room Number 2415 Number Date of 1945 Referring Physician Altagracia Stark Age 72 year(s) 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 Clinical History DM;HTN HGB 14.5 HCT 43.2 % Contrast Medium: Definity. Height: 69 inches Weight: 103.87 kg (229 lbs) BSA: 2.19 m^2 BMI: 33.82 kg/m^2 HR: 72 bpm BP: 212/106 mmHg Summary 1. The left ventricle is chamber size (by vol index) is normal. Normal LV wall thickness. All segments are hyperdynamic. Global LV systolic function hyperdynamic . LVEF by Parker's method of disk assessment is increased (>70%) . Grade 1 diastolic dysfunction (impaired relaxation and low-normal LA pressure). LA size is normal (16-34 ml/m2) . 2. The right ventricular chamber size and systolic function are within normal limits. RA cavity size is normal. Unable to estimate peak systolic PA pressure; inadequate TR velocity signal. 3. No significant valvular abnormalities. 4. IV saline contrast injection was negative for a PFO (patent foramen ovale) at rest and post Valsalva . Previous Study No prior studies available for comparison. Signature Findings Technical Quality: Technically adequate exam. Left Ventricle The LV apex is incompletely visualized due to foreshortening. LV endocardium is adequately visualized with IV ultrasound enhancing agent. The left ventricle is chamber size (by vol index) is normal (male - LVED vol - 34-74ml/m2). Normal LV wall thickness. All LV segments are hyperdynamic. Global LV systolic function hyperdynamic . LVEF by Parker's method of disk assessment is increased (>70%) . The LVEF was measured using Parker's bi-plane method of disk . Low (cardiac index <2 L/min/m2) cardiac output state at rest is noted. Grade 1 diastolic dysfunction (impaired relaxation and low-normal LA pressure). Left Atrium LA size is normal (16-34 ml/m2) . Right Ventricle The right ventricular chamber size and systolic function are within normal limits. Right Atrium RA cavity size is normal . Atrial Septum IV saline contrast injection was negative for a PFO (patent foramen ovale) at rest and post Valsalva . Aortic Valve Normal AoV structure and function. Mitral Valve Mild mitral annular calcification. No evidence of mitral regurgitation. Tricuspid Valve TV structure is normal. A trace of tricuspid regurgitation. Unable to estimate peak systolic PA pressure; inadequate TR velocity signal. Pulmonic Valve Normal PV structure and function by limited views and Doppler. Aorta Aortic root size (SInus of Valsalva diameter) is normal . Pericardium No pericardial effusion is visualized. IVC/SVC/PA/PV/Pleural The estimated RA pressure by IVC dynamics 0-5mmHg . The inferior vena cava size is normal . The inferior vena cava is adequately visualized. Chambers/Structures Left Atrium LA Volume: 59.47 ml LA Area: 19.01 cm^2 LA Vol. Index: 27 ml/m^2 Left Ventricle LVIDd: 4.66 cm LVIDs: 3 cm LV Septum Diastolic: 0.94 cm LV PW Diastolic: 1.09 cm LV FS: 35.6 % LVEDV Parker's:135.04 ml LVESV Parker's:40.18 ml LVEDVI: 62 ml/m^2 LVEF Parker's: 70.2 % LVESVI: 18 ml/m^2 LVOT Diameter: 2.1 cm Aorta Ao Root S of Judie.: 3.35 cm Ascending Aorta: 3.5 cm Doppler/Quantitative Measurements Mitral Valve MV Peak E-Wave: 0.64 m/s MV Peak A-Wave: 0.96 m/s E/A Ratio: 0.66 Peak Gradient: 1.62 mmHg Deceleration Time: 272.3 msec MV Mohinder. Peak: Tissue Doppler E' Septal Velocity: 0.07 m/s E/E': 9.46 Aortic Valve Peak Velocity: 0.91 m/s Mean Velocity: 0.71 m/s Peak Gradient: 3.33 mmHg Mean Gradient: 2.18 mmHg AV Area (continuity): 2.89 cm^2 AV VTI: 19.3 cm AV DVI: 0.83 LVOT Peak Velocity: 0.75 m/s Peak Gradient: 2.26 mmHg Mean Velocity: 0.53 m/s Mean Gradient: 1.28 mmHg LVOT Diameter: 2.1 cm LVOT VTI: 16.09 cm LVOT Area: 3.46 cm^2 LVOT SV:55.7 ml LVOT CO: 4.01 l/min LVOT CI: 1.83 l/min/m^2 Troponin I (12/17/2017 8:46 AM) Component Value Ref Range Troponin I 0.03 0.00 - 0.03 ng/mL Specimen Performing Laboratory Blood - Arm, [address] [address] Narrative Troponin I (TnI) levels must be interpreted [...] failure, acidosis, acute neurological disease, and persistent tachyarrhythmia. Creatine Kinase (CK), Total and MB (12/17/2017 8:46 AM) Component Value Ref Range Total CK 78 29 - 200 U/L CK-MB 1.9 0.0 - 6.6 ng/mL MB Relative Index 2.4 % Specimen Performing Laboratory Blood - Arm, Right [address] [address] Narrative CK-MB Reference Range: <6.7Normal 6.7-10.0Borderline >10.0 Abnormal ECG 12 lead (12/17/2017 5:05 AM) Specimen Performing Laboratory GE MUSE Narrative Ventricular Rate 67 BPM Atrial Rate 67 BPM P-R Interval 166 ms QRS Duration 94 ms Q-T Interval 428 ms QTC Calculation(Bazett) 452 ms P Dill[place] 43 degrees R Dillwyn -18 degrees T Dillwyn 67 degrees Normal sinus rhythm Nonspecific T wave abnormality Abnormal ECG When compared with ECG of 17-DEC-2017 05:01, Previous ECG has undetermined rhythm, needs review Confirmed by MD VERONICA, IHAB ([id number]) on 12/17/2017 8:56:54 AM Procedure Note Interface, External Ris In - 12/17/2017 8:57 AM CDT Ventricular Rate 67 BPM Atrial Rate 67 BPM P-R Interval 166 ms QRS Duration 94 ms Q-T Interval 428 ms QTC Calculation(Bazett) 452 ms P [place] 43 degrees R Dillwyn -18 degrees T [place]ill[place] 67 degrees Normal sinus rhythm Nonspecific T wave abnormality Abnormal ECG When compared with ECG of 17-DEC-2017 05:01, Previous ECG has undetermined rhythm, needs review Confirmed by MD VERONICA, IHAB ([id number]) on 12/17/2017 8:56:54 AM Vitamin B12 and Folate (12/17/2017 3:04 AM) Component Value Ref Range Vitamin B12 <146 (L) 213 - 816 pg/mL Folate 15.7 >=7.0 ng/mL Specimen Performing Laboratory Blood - Arm, [address] [address] TSH/Free T4 If Indicated (12/17/2017 3:04 AM) Component Value Ref Range TSH 10.00 (H) 0.35 - 4.94 uIU/mL Specimen Performing Laboratory Blood - Arm, [address] [address] RPR (12/17/2017 3:04 AM) Component Value Ref Range RPR Nonreactive Nonreactive Specimen Performing Laboratory Blood - Arm, [address] [address] T4, free (12/17/2017 3:04 AM) Component Value Ref Range Free T4 0.83 0.70 - 1.48 ng/dL Specimen Performing Laboratory Blood - Arm, [address] [address] Hemoglobin A1c (12/17/2017 3:04 AM) Component Value Ref Range Hemoglobin A1C 12.1 (H) 4.3 - 6.1 % Specimen Performing Laboratory Blood - Arm, [address] [address] Lipid panel (12/17/2017 3:04 AM) Component Value Ref Range Triglycerides 351Comment: Specimen slightly hemolyzed mg/dL Cholesterol 216Comment: Specimen slightly hemolyzed mg/dL HDL 35 mg/dL LDL Calculated 111 mg/dL Specimen Performing Laboratory Blood - Arm, [address] [address] Narrative Triglyceride Reference Range: Low Risk <150 [id number] High Risk 200-499 Very High Risk>=500 Cholesterol Reference Range: Low Risk <200 Waoujxaosn388-462 High Risk>240 HDL Cholesterol Reference Range: Low Risk >=60 High Risk <40 LDL Cholesterol Reference Range: Optimal<100 Near Cegqssf200-825 Lfokvcktzp935-707 Kizn106-648 Very High >=190 after 01/16/2017
--- OUTSIDE RECORDS SUMMARY | 2018-01-17 09:20 | XMS REPORT ---
:1945 [facility] Address [facility] hospital [facility] [address] [place] [address] Care Team Providers Name Role Phone LUCAS ANDERSONY ROMIE KELSEYNasrin Unavailable Unavailable Problems This patient has no known problems. Allergies, Adverse Reactions, Alerts This patient has no known allergies or adverse reactions. Medications This patient has no known medications. Results Test Description Test Time Test Comments Text Results Atomic Results Result Comments POCT-GLUCOSE METER 2017-12-18 12:21:00 Test Item Value Reference Range Comments POC-GLUCOSE METER (BEAKER) (test 315 mg/dL 70-110 Notified RED JAQUEZ/TESTED AT [facility] hnar=3846) [address] [place] [address] POCT-GLUCOSE [id number] 08:26:00 Test Item Value Reference Range Comments POC-GLUCOSE METER (BEAKER) 304 mg/dL 70-110 Notified RED JAQUEZ/TESTED AT [facility] (test pawc=1730) [address] [place] [address] [id number] 06:46:00 Test Item Value Reference Range Comments MAGNESIUM (BEAKER) (test 2.2 mg/dL 1.6-2.6 Specimen slightly hemolyzed pqzk=854) BASIC METABOLIC [id number] 06:46:00 Test Item Value Reference Range Comments SODIUM (BEAKER) (test 133 meq/L 136-145 afxs=908) POTASSIUM (BEAKER) (test 4.0 meq/L 3.5-5.1 Specimen slightly zsod=663) hemolyzed CHLORIDE (BEAKER) (test 101 meq/L 98-107 reyb=077) CO2 (BEAKER) (test 24 meq/L 22-29 qidv=252) BLOOD UREA NITROGEN 17 mg/dL 7-21 (BEAKER) (test bfux=318) CREATININE (BEAKER) (test 1.19 mg/dL 0.57-1.25 Specimen slightly gwao=244) hemolyzed GLUCOSE RANDOM (BEAKER) 315 mg/dL 70-105 (test rwmt=543) CALCIUM (BEAKER) (test 9.5 mg/dL 8.4-10.2 mlwi=765) EGFR (BEAKER) (test 60 mL/min/1.73 sq m ESTIMATED GFR IS NOT rbox=7457) ACCURATE CREATININE CLEARANCE IN PREDICTING GLOMERULAR FILTRATION RATE. ESTIMATED GFR IS NOT APPLICABLE FOR DIALYSIS PATIENTS. CBC W/PLT COUNT & AUTO [id number] 06:43:00 Test Item Value Reference Range Comments WHITE BLOOD CELL COUNT (BEAKER) (test qeqi=767) 6.9 K/ L 3.5-10.5 RED BLOOD CELL COUNT (BEAKER) (test zsyb=437) 5.14 M/ L 4.63-6.08 HEMOGLOBIN (BEAKER) (test isuq=931) 15.6 GM/DL 13.7-17.5 HEMATOCRIT (BEAKER) (test ocyv=137) 46.3 % 40.1-51.0 MEAN CORPUSCULAR VOLUME (BEAKER) (test zdgq=686) 90.1 fL 79.0-92.2 MEAN CORPUSCULAR HEMOGLOBIN (BEAKER) (test 30.4 pg 25.7-32.2 cnsj=056) MEAN CORPUSCULAR HEMOGLOBIN CONC (BEAKER) (test 33.7 GM/DL 32.3-36.5 mnlw=426) RED CELL DISTRIBUTION WIDTH (BEAKER) (test 12.5 % 11.6-14.4 dqzs=171) PLATELET COUNT (BEAKER) (test tetd=463) 172 K/CU MM 150-450 MEAN PLATELET VOLUME (BEAKER) (test lhnd=632) 11.2 fL 9.4-12.4 NUCLEATED RED BLOOD CELLS (BEAKER) (test 0 /100 WBC 0-0 pahj=216) NEUTROPHILS RELATIVE PERCENT (BEAKER) (test 60 % fkgk=989) LYMPHOCYTES RELATIVE PERCENT (BEAKER) (test 26 % rblj=351) MONOCYTES RELATIVE PERCENT (BEAKER) (test 10 % cavb=697) EOSINOPHILS RELATIVE PERCENT (BEAKER) (test 3 % ayeh=759) BASOPHILS RELATIVE PERCENT (BEAKER) (test 1 % agvg=696) NEUTROPHILS ABSOLUTE COUNT (BEAKER) (test 4.11 K/ L 1.78-5.38 mznn=668) LYMPHOCYTES ABSOLUTE COUNT (BEAKER) (test 1.79 K/ L 1.32-3.57 zsbc=193) MONOCYTES ABSOLUTE COUNT (BEAKER) (test 0.66 K/ L 0.30-0.82 qpin=601) EOSINOPHILS ABSOLUTE COUNT (BEAKER) (test 0.22 K/ L 0.04-0.54 nrbi=824) BASOPHILS ABSOLUTE COUNT (BEAKER) (test 0.04 K/ L 0.01-0.08 waux=166) IMMATURE GRANULOCYTES-RELATIVE PERCENT (BEAKER) 1 % 0-1 (test ynmb=4943) [id number] 02:37:00 Test Item Value Reference Range Comments RPR SCREEN (BEAKER) (test jywt=372) Nonreactive Nonreactive POCT-GLUCOSE [id number] 00:03:00 Test Item Value Reference Range Comments POC-GLUCOSE METER (BEAKER) 338 mg/dL 70-110 Notified RED JAQUEZ/TESTED AT [facility] (test vevq=5505) [address] [facility] [address] MR, MRA, NECK, WITHOUT IV [id number] 21:41:00Reason for exam:-> strokeFINAL REPORT MRA Head CLINICAL HISTORY: Stroke TECHNIQUE: MRA of the head utilizing 3-D vklv-sg-zlimma technique, with 3-D reconstructions. COMPARISON: None FINDINGS: [...] the right vertebral artery. Signed: Chaparro Gomes Verified Date/Time: 12/17/2017 21:41:27 Reading Location: [facility] Radiology Reading Room MR, MRA, BRAIN, WITHOUT [id number] 21:41: 00Reason for exam:->strokeFINAL REPORT MRA Head [...] of the neck utilizing 2-D and 3-D voye-xs-awnqyc technique, with 3-D reconstructions. COMPARISON: None IMPRESSION:There is 66% stenosis of the proximal left internal carotid artery by NASCET criteria. There is 20%stenosis of the proximal right internal carotid artery by NASCET criteria. There is severe attenuation of the left vertebral artery. There is preserved antegrade flow in the right vertebral artery. Signed: Chaparro Gomes Verified Date/Time: 2017 21:41:27 Reading Location: [facility] Radiology Reading Room MR, BRAIN, WITHOUT [id number] 21:30:00Reason for exam:->Stroke evaluationFINAL REPORT MRI Brain [...] Verified Date/Time: 12/17/2017 21:30: 55 Reading Location: [facility] Radiology Reading Room POCT-GLUCOSE [id number] 18:05:00 Test Item Value Reference Range Comments POC-GLUCOSE METER (BEAKER) 270 mg/dL 70-110 TESTED AT [address] (test zcai=6835) [facility] [address] VITAMIN [id number] 17:03:00 Test Item Value Reference Range Comments VITAMIN B12 (BEAKER) (test tosy=566) < pg/mL 213-816 [id number] 15:45:00 Test Item Value Reference Range Comments HOMOCYSTEINE (BEAKER) (test vjzz=010) 16.8 umol/L 5.1-15.4 POCT-GLUCOSE [id number] 12:49:00 Test Item Value Reference Range Comments POC-GLUCOSE METER (BEAKER) 308 mg/dL 70-110 Notified RED JAQUEZ/TESTED AT [facility] (test kdzw=6904) [address] [place] [address] CREATINE KINASE (CK), TOTAL AND [id number] 09:37:00 Test Item Value Reference Range Comments CREATINE KINASE TOTAL (BEAKER) (test wlox=593) 78 U/L 29-200 CREATINE KINASE-MB (BEAKER) (test qaut=698) 1.9 ng/mL 0.0-6.6 CREATINE KINASE-MB INDEX (BEAKER) (test kilu=488) 2.4 % CK-MB Reference Range:<6.7 Normal6.7-10.0 Borderline>10.0 AbnormalTROPONIN [id number] 09:37:00 Test Item Value Reference Range Comments TROPONIN I (BEAKER) (test bdrm=692) 0.03 ng/mL 0.00-0.03 Troponin I (TnI) levels [...] acidosis, acute neurological disease, and persistent tachyarrhythmia.HEMOGLOBIN [id number] 09:27:00 Test Item Value Reference Range Comments HEMOGLOBIN A1C (BEAKER) (test rkcl=614) 12.1 % 4.3-6.1 POCT-GLUCOSE [id number] 08:53:00 Test Item Value Reference Range Comments POC-GLUCOSE METER (BEAKER) 289 mg/dL 70-110 TESTED AT [facility] [address] [facility] (test dqat=8831) [facility] [address] T4, [id number] 05:26:00 Test Item Value Reference Range Comments FREE T4 (BEAKER) (test igxm=052) 0.83 ng/dL 0.70-1.48 TSH/FREE T4 IF [id number] 04:27:00 Test Item Value Reference Range Comments THYROID STIMULATING HORMONE (BEAKER) (test 10.00 uIU/mL 0.35-4.94 zdix=813) VITAMIN B12 AND [id number] 04:27:00 Test Item Value Reference Range Comments VITAMIN B12 (BEAKER) (test qphu=084) < pg/mL 213-816 FOLATE (BEAKER) (test whvz=781) 15.7 ng/mL >=7.0 [id number] 03:52:00 Test Item Value Reference Range Comments MAGNESIUM (BEAKER) (test 2.2 mg/dL 1.6-2.6 Specimen slightly hemolyzed jzun=920) BASIC METABOLIC [id number] 03:52:00 Test Item Value Reference Range Comments SODIUM (BEAKER) (test 133 meq/L 136-145 mvxa=333) POTASSIUM (BEAKER) (test 3.8 meq/L 3.5-5.1 Specimen slightly impv=255) hemolyzed CHLORIDE (BEAKER) (test 100 meq/L 98-107 epub=997) CO2 (BEAKER) (test 20 meq/L 22-29 khib=324) BLOOD UREA NITROGEN 17 mg/dL 7-21 (BEAKER) (test bsyy=665) CREATININE (BEAKER) (test 1.11 mg/dL 0.57-1.25 Specimen slightly uvlk=906) hemolyzed GLUCOSE RANDOM (BEAKER) 340 mg/dL 70-105 (test ohxo=052) CALCIUM (BEAKER) (test 9.4 mg/dL 8.4-10.2 wbyo=409) EGFR (BEAKER) (test 65 mL/min/1.73 sq m ESTIMATED GFR IS NOT enmv=0637) ACCURATE CREATININE CLEARANCE IN PREDICTING GLOMERULAR FILTRATION RATE. ESTIMATED GFR IS NOT APPLICABLE FOR DIALYSIS PATIENTS. LIPID [id number] 03:52:00 Test Item Value Reference Range Comments TRIGLYCERIDES (BEAKER) (test 351 mg/dL Specimen slightly hemolyzed yeqx=303) CHOLESTEROL (BEAKER) (test 216 mg/dL Specimen slightly hemolyzed ayhc=441) HDL CHOLESTEROL (BEAKER) (test 35 mg/dL zjem=589) LDL CHOLESTEROL CALCULATED 111 mg/dL (BEAKER) (test sdsr=655) Triglyceride Reference Range: Low Risk <150 Borderline 150- 199 High Risk 200-499 Very High Risk >=500Cholesterol Reference Range: Low Risk <200 Borderline 200-239 High Risk > 240HDL Cholesterol Reference Range: Low Risk >=60 High Risk <40LDL Cholesterol Reference Range: Optimal <100 Near Optimal 100-129 Borderline 130-159 High 160-189 Very High >=190CBC W/PLT COUNT & AUTO [id number] 03:29:00 Test Item Value Reference Range Comments WHITE BLOOD CELL COUNT (BEAKER) (test delt=450) 7.2 K/ L 3.5-10.5 RED BLOOD CELL COUNT (BEAKER) (test umen=968) 4.80 M/ L 4.63-6.08 HEMOGLOBIN (BEAKER) (test mnql=807) 14.5 GM/DL 13.7-17.5 HEMATOCRIT (BEAKER) (test lubm=236) 43.2 % 40.1-51.0 MEAN CORPUSCULAR VOLUME (BEAKER) (test rmpx=379) 90.0 fL 79.0-92.2 MEAN CORPUSCULAR HEMOGLOBIN (BEAKER) (test 30.2 pg 25.7-32.2 qdck=014) MEAN CORPUSCULAR HEMOGLOBIN CONC (BEAKER) (test 33.6 GM/DL 32.3-36.5 vzbd=358) RED CELL DISTRIBUTION WIDTH (BEAKER) (test 12.4 % 11.6-14.4 yglb=623) PLATELET COUNT (BEAKER) (test qcsq=625) 176 K/CU MM 150-450 MEAN PLATELET VOLUME (BEAKER) (test fnmr=467) 10.9 fL 9.4-12.4 NUCLEATED RED BLOOD CELLS (BEAKER) (test 0 /100 WBC 0-0 ofwr=518) NEUTROPHILS RELATIVE PERCENT (BEAKER) (test 63 % sfuc=435) LYMPHOCYTES RELATIVE PERCENT (BEAKER) (test 23 % zelj=592) MONOCYTES RELATIVE PERCENT (BEAKER) (test 9 % sfft=631) EOSINOPHILS RELATIVE PERCENT (BEAKER) (test 3 % tusl=030) BASOPHILS RELATIVE PERCENT (BEAKER) (test 1 % bxjo=323) NEUTROPHILS ABSOLUTE COUNT (BEAKER) (test 4.53 K/ L 1.78-5.38 doce=003) LYMPHOCYTES ABSOLUTE COUNT (BEAKER) (test 1.68 K/ L 1.32-3.57 mdlo=105) MONOCYTES ABSOLUTE COUNT (BEAKER) (test 0.64 K/ L 0.30-0.82 zdoi=575) EOSINOPHILS ABSOLUTE COUNT (BEAKER) (test 0.24 K/ L 0.04-0.54 puke=975) BASOPHILS ABSOLUTE COUNT (BEAKER) (test 0.04 K/ L 0.01-0.08 iziz=686) IMMATURE GRANULOCYTES-RELATIVE PERCENT (BEAKER) 1 % 0-1 (test mdgn=6918)
--- NOTE | 2018-01-17 10:58 | RAD REPORT ---
EXAM DESCRIPTION: CT - Head Brain Wo Cont - 01/17/2018 10:48 am CLINICAL HISTORY: general weakness CVA COMPARISON: Ct Stroke Brain Wo Cont dated 12/16/2017; HEAD BRAIN W O CONTRAST dated 09/03/2009 TECHNIQUE: All CT scans are performed using dose optimization technique as appropriate and may inclu de automated exposure control or mA/KV adjustment according to patient size. FINDINGS: No intracranial hemorrhage, hydrocephalus or extra-axial fluid collection.Posterior perive ntricular white matter hypodensity is most compatible with remote infarction.No areas of brain edema or evidence of midline shift. The paranasal sinuses and mastoids are clear. The calvarium is intact. The left vertebral artery is c alcified. IMPRESSION: No acute intracranial abnormality.
[2018-01-17 11:06] LABS: Protime INR 1.09
[2018-01-17 11:08] LABS: Absolute Lymphocytes (CBC) 1.3 K/uL (0.7-4.9); Absolute Monocytes 0.7 K/uL (0.1-1.3); Absolute Neutrophil 4.5 K/uL (1.8-8.0); Basophils % 0.5 % (0-1.3); Eosinophils % 3.2 % (0-4.4); Hematocrit 45.8 % (39.6-49.0); Lymphocytes % 19.9 % (15.3-44.8); MCH 30.4 pg (27.0-35.0); MCV 89.1 fL (80-100); MPV 9.4 fL (7.6-11.3); Monocytes % 9.9 % (3.3-12.3); RBC Red Blood Cell Count 5.13 M/uL (4.33-5.43)
[2018-01-17 11:19] LABS: Albumin 3.9 g/dL (3.4-5.0); Bilirubin Direct 0.2 mg/dL (0-0.2); Bilirubin Total 0.8 mg/dL (0.2-1.0); Magnesium 2.1 mg/dL (1.8-2.4); Potassium 3.9 mmol/L (3.5-5.1); Protein, Total 7.6 g/dL (6.4-8.2)
--- NOTE | 2018-01-17 11:28 | EKG ---
Test Date: 2018-01-17 Test Time: 09:31:44 Mail Agent: HELLEN MEASUREMENT RESULTS: Intervals: Rate: 67 DC: 162 QRSD: 94 QT: 416 QTc: 439 [place]: P: 22 DC: 162 QRS: 15 T: 58 INTERPRETIVE STATEMENTS: Normal sinus rhythm Normal ECG Compared to ECG 12/16/2017 19:48:17 No significant changes Electronically Signed On 01-17-18 11:28:07 CDT by Nain Barakat
--- NOTE | 2018-01-17 11:32 | RAD REPORT ---
EXAM DESCRIPTION: RAD - Chest Single View - 01/17/2018 11:04 am CLINICAL HISTORY: General weakness Chest pain. COMPARISON: Chest Single View dated 12/16/2017; Chest Pa And Lat (2 Views) dated 10/08/2017; Chest Pa And Lat (2 Views) dated 10/21/2016; CHEST SINGLE VIEW dated 12/21/2011 FINDINGS: Portable technique limits examination quality. The lungs are grossly clear. The heart is normal in size. No displaced fractures. IMPRESSION: No acute intrathoracic process suspected.
--- NOTE | 2018-01-17 11:54 | ER ---
Nurse's Notes [facility] Name: Otto Montiel Age: 72 yrs Sex: Male : 1945 Arrival Date: 01/17/2018 Time: : Bed 18 Private MD: Robert Darden V Diagnosis: Weakness Presentation: 01/17 09:29 Presenting complaint: Patient states: past week I have been feeling badly. I had a ch stoke December 26. I think its my blood sugar, been on insulin since 01/01/18. BGL this morning was 132. body ache, feeling weak all over, seems to be getting worse. little bit of a cough, and some pain in throat/upper chest. Transition of care: patient was not received from another setting of care. Onset of symptoms was January 07, 2018. Risk Assessment: Do you want to hurt yourself or someone else? Patient reports no desire to harm self or others. Initial Sepsis Screen: Does the patient meet any 2 criteria? No. Patient's initial sepsis screen is negative. Does the patient have a suspected source of infection? No. Patient's initial sepsis screen is negative. Care prior to arrival: None. 09:29 Method Of Arrival: Ambulatory 09:29 Acuity: DARIUS 3 ch Triage Assessment: :33 General: Appears in no apparent distress. comfortable, Behavior is calm, cooperative, ch appropriate for age. Pain: Complains of pain in generalized Pain currently is 4 out of 10 on a pain scale. Historical: - Allergies: : Actifed Cold-Allergy; ch 09:33 Celebrex; ch 09:33 Levaquin; 09:33 Losartan; 09:33 metformin; 09:33 steroids; ch - Home Meds: :33 amlodipine 10 mg oral tab 1 tab once daily [Active]; glipizide 2.5 mg Oral tr24 ch [Active]; atorvastatin 80 mg oral tab 1 tab once daily [Active]; levothyroxine 200 mcg oral tab 1 tab once daily [Active]; lantus solo star 40 Units once daily in the AM [Active]; - PMHx: 09:33 Hypertension; Hypothyroidism; legally blind; macular degeneration; CVA; Diabetes - IDDM;ch - PSHx: : Ring finger amputation; L arm; L knee; ch - Immunization history:: Adult Immunizations up to date, Last tetanus immunization: not indicated for visit today. Pneumococcal vaccine is up to date, Flu vaccine is not up to date. - Social history:: Smoking status: Patient/guardian denies using tobacco, Patient/guardian denies using alcohol, street drugs. - Ebola Screening: : Patient negative for fever greater than or equal to 101.5 degrees Fahrenheit, and additional compatible Ebola Virus Disease symptoms Patient denies exposure to infectious person Patient denies travel to an Ebola-affected area in the 21 days before illness onset No symptoms or risks identified at this time. Screenin:45 Abuse screen: Denies threats or abuse. Denies injuries from another. Nutritional sg screening: No deficits noted. Tuberculosis screening: No symptoms or risk factors identified. Never had TB. Fall Risk None identified. Assessment: 09:45 General: Appears in no apparent distress. comfortable, well groomed, well developed, sg well nourished, Behavior is calm, cooperative, appropriate for age. Pain: Denies pain. Neuro: Level of Consciousness is awake, alert, obeys commands, Oriented to person, place, time, Laborer Electroplating are equal bilaterally Moves all extremities. pt reports general weakness. Speech is normal, Facial symmetry appears normal. Cardiovascular: Heart tones S1 S2 present Capillary refill is brisk in bilateral fingers Patient's skin is warm and dry. Chest pain is denied. Respiratory: Airway is patent Respiratory effort is even, unlabored, Respiratory pattern is regular, symmetrical, Breath sounds are clear. GI: Abdomen is round Bowel sounds present X 4 quads. Patient currently denies nausea, pain, vomiting. : No signs and/or symptoms were reported regarding the genitourinary system. EENT: No signs and/or symptoms were reported regarding the EENT system. Derm: Skin is intact, is healthy with good turgor, Skin is dry, Skin is pale, Skin temperature is warm. Musculoskeletal: No signs and/or symptoms reported regarding the musculoskeletal system. 10:45 Reassessment: Patient appears in no apparent distress at this time. Patient and/or hb family updated on plan of care and expected duration. Pain level reassessed. Patient is alert, oriented x 3, equal unlabored respirations, skin warm/dry/pink. Vital Signs: 09:33 BP 164 / 78; Pulse 71; Resp 16; Temp 98.3; Pulse Ox 99% on R/A; Weight 97.07 kg; Height ch 5 ft. 9 in. (175.26 cm); Pain 3/10; 10:30 BP 175 / 79; Pulse 70; Resp 16; Pulse Ox 99% on R/A; dh3 11:18 BP 158 / 69; Pulse 58; Resp 14; Pulse Ox 96% on R/A; dh3 12:00 BP 142 / 70; Pulse 60; Resp 16 S; Pulse Ox 99% on R/A; Pain 0/10; sg 09:33 Body Mass Index 31.60 (97.07 kg, 175.26 cm) ED Course: 09:20 Patient arrived in ED. sb2 09:21 Robert Darden MD is Private Physician. sb2 09:31 Triage completed. ch 09:33 Arm band placed on left wrist. Patient placed in an exam room, on a stretcher. ch 09:37 EKG done, by equipment maintenance tech. reviewed by Fuentes Campos MD. at1 09:42 Mark Schaefer, RN is Primary Nurse. sg 09:45 Patient has correct armband on for positive identification. Bed in low position. Call sg light in reach. Side rails up X2. site monitor on. Pulse ox on. NIBP on. Warm blanket given. Head of bed elevated. 09:45 Initial lab(s) drawn, by me, sent to lab. First set of blood cultures drawn by me. sg Inserted saline lock: 20 gauge in right antecubital area, using aseptic technique. Blood collected. 09:45 No provider procedures requiring assistance completed. sg 10:00 Second set of blood cultures drawn by me. sg 10:05 Fuentes Campos MD is Attending Physician. kdr 10:45 Patient moved to radiology via wheelchair. jb2 10:47 CT Head Brain wo Cont In Process Unspecified. EDMS 10:55 X-ray completed. Patient tolerated procedure well. Patient moved back from radiology. jb2 11:04 XRAY Chest (1 view) In Process Unspecified. EDMS 11:53 Robert Darden MD is Referral Physician. kdr 12:15 IV discontinued, intact, bleeding controlled, No redness/swelling at site. Pressure sg dressing applied. Administered Medications: No medications were administered Outcome: 11:54 Discharge ordered by . kdr 12:20 Discharged to home ambulatory, with family. sg 12:20 Condition: good 12:20 Discharge instructions given to patient, Instructed on discharge instructions, follow up and referral plans. safety practices, Demonstrated understanding of instructions, follow-up care. 12:23 Patient left the ED. dm5 Signatures: Dispatcher [employer] EDMS Eli Wade, RN RN Rola Kamara RN RN dm5 Mark Schaefer RN RN sg Fuentes Campos MD MD kdr Buechter, Jesse jb2 Shaila kruse, botany laboratory assistant EKG Tat1 Marli Miller RN RN Mary Fulton 3 Jen Power2 Corrections: (The following items were deleted from the chart) 09:35 09:29 Presenting complaint: Patient states: past week I have been feeling badly. I had ch a stoke December 26. I think its my blood sugar, been on insulin since 01/01/18. BGL this morning was 132. body ache, feeling weak all over, seems to be getting worse ch
--- NOTE | 2018-01-17 11:54 | EDPHYS ---
Physician Documentation [facility] Name: Otto Montiel Age: 72 yrs Sex: Male : 1945 Arrival Date: 01/17/2018 Time: 09:20 Bed 18 Private MD: Robert Darden V ED Physician Fuentes Campos HPI: 01/17 17:20 This 72 yrs old Male presents to ER via Ambulatory with complaints of General kdr Weakness. 17:20 The patient states that he does not do well with medications and that he has been on kdr insulin for some time. He thinks that he is not tolerating the insulin well. He has no other focal c/o. Onset: The symptoms/episode began/occurred acutely, gradually, at an unknown time. Severity of symptoms: At their worst the symptoms were mild in the emergency department the symptoms are unchanged. The patient has experienced similar episodes in the past, With prior medications. The patient has been recently seen by a physician: Dr. Darden. Historical: - Allergies: :33 Actifed Cold-Allergy; ch 09:33 Celebrex; ch 09:33 Levaquin; ch 09:33 Losartan; ch 09:33 metformin; ch 09:33 steroids; ch - Home Meds: :33 amlodipine 10 mg oral tab 1 tab once daily [Active]; glipizide 2.5 mg Oral tr24 ch [Active]; atorvastatin 80 mg oral tab 1 tab once daily [Active]; levothyroxine 200 mcg oral tab 1 tab once daily [Active]; lantus solo star 40 Units once daily in the AM [Active]; - PMHx: 09:33 Hypertension; Hypothyroidism; legally blind; macular degeneration; CVA; Diabetes - IDDM;ch - PSHx: 09:33 Ring finger amputation; L arm; L knee; ch - Immunization history:: Adult Immunizations up to date, Last tetanus immunization: not indicated for visit today. Pneumococcal vaccine is up to date, Flu vaccine is not up to date. - Social history:: Smoking status: Patient/guardian denies using tobacco, Patient/guardian denies using alcohol, street drugs. - Ebola Screening: : Patient negative for fever greater than or equal to 101.5 degrees Fahrenheit, and additional compatible Ebola Virus Disease symptoms Patient denies exposure to infectious person Patient denies travel to an Ebola-affected area in the 21 days before illness onset No symptoms or risks identified at this time. ROS: 17:22 Constitutional: Negative for fever, chills, and weight loss, Eyes: Negative for injury, kdr pain, redness, and discharge, ENT: Negative for injury, pain, and discharge, Neck: Negative for injury, pain, and swelling, Cardiovascular: Negative for chest pain, palpitations, and edema, Respiratory: Negative for shortness of breath, cough, wheezing, and pleuritic chest pain, Abdomen/GI: Negative for abdominal pain, nausea, vomiting, diarrhea, and constipation, Back: Negative for injury and pain, : Negative for injury, bleeding, discharge, and swelling, MS/Extremity: Negative for injury and deformity, Skin: Negative for injury, rash, and discoloration, Psych: Negative for depression, anxiety, suicide ideation, homicidal ideation, and hallucinations, Allergy/Immunology: Negative for hives, rash, and allergies, Endocrine: Negative for neck swelling, polydipsia, polyuria, polyphagia, and marked weight changes, Hematologic/Lymphatic: Negative for swollen nodes, abnormal bleeding, and unusual bruising. 17:22 Neuro: Positive for very mild confusion, fatigue, vague sense of not being well. Exam: 17:22 Constitutional: This is a well developed, well nourished patient who is awake, alert, kdr and in no acute distress. Head/Face: Normocephalic, atraumatic. Eyes: Pupils equal round and reactive to light, extra-ocular motions intact. Lids and lashes normal. Conjunctiva and sclera are non-icteric and not injected. Cornea within normal limits. Periorbital areas with no swelling, redness, or edema. Neck: Trachea midline, no thyromegaly or masses palpated, and no cervical lymphadenopathy. Supple, full range of motion without nuchal rigidity, or vertebral point tenderness. No Meningismus. Chest/axilla: Normal chest wall appearance and motion. Nontender with no deformity. No lesions are appreciated. Cardiovascular: Regular rate and rhythm with a normal S1 and S2. No gallops, murmurs, or rubs. Normal PMI, no JVD. No pulse deficits. Respiratory: Lungs have equal breath sounds bilaterally, clear to auscultation and percussion. No rales, rhonchi or wheezes noted. No increased work of breathing, no retractions or nasal flaring. Abdomen/GI: Soft, non-tender, with normal bowel sounds. No distension or tympany. No guarding or rebound. No evidence of tenderness throughout. Back: No spinal tenderness. No costovertebral tenderness. Full range of motion. Skin: Warm, dry with normal turgor. Normal color with no rashes, no lesions, and no evidence of cellulitis. MS/ Extremity: Pulses equal, no cyanosis. Neurovascular intact. Full, normal range of motion. Neuro: Awake and alert, GCS 15, oriented to person, place, time, and situation. Cranial nerves II-XII grossly intact. Motor strength 5/5 in all extremities. Sensory grossly intact. Cerebellar exam normal. Normal gait. Psych: Awake, alert, with orientation to person, place and time. Behavior, mood, and affect are within normal limits. Vital Signs: 09:33 BP 164 / 78; Pulse 71; Resp 16; Temp 98.3; Pulse Ox 99% on R/A; Weight 97.07 kg; Height ch 5 ft. 9 in. (175.26 cm); Pain 3/10; 10:30 BP 175 / 79; Pulse 70; Resp 16; Pulse Ox 99% on R/A; dh3 11:18 BP 158 / 69; Pulse 58; Resp 14; Pulse Ox 96% on R/A; dh3 12:00 BP 142 / 70; Pulse 60; Resp 16 S; Pulse Ox 99% on R/A; Pain 0/10; sg 09:33 Body Mass Index 31.60 (97.07 kg, 175.26 cm) MDM: 11:54 Patient medically screened. kdr 17:22 Data reviewed: vital signs, nurses notes, lab test result(s), radiologic studies. kdr Counseling: I had a detailed discussion with the patient and/or guardian regarding: the historical points, exam findings, and any diagnostic results supporting the discharge/admit diagnosis, lab results, radiology results, the need for outpatient follow up. Physician consultation: Robert Darden MD regarding consult, patient's condition, need to evaluate the patient as soon as possible, outpatient follow-up, and will see patient in office, in 2-3 days. 01/17 10:07 Order name: Glucose, Ancillary Testing; Complete Time: 10:31 EDMS 01/17 10:18 Order name: Urine Dipstick--Ancillary (enter results) bd 01/17 10:31 Order name: Basic Metabolic Panel; Complete Time: 11:49 kdr 01/17 10:31 Order name: CBC with Diff; Complete Time: 11:49 kdr 01/17 10:31 Order name: LFT's; Complete Time: 11:49 kdr 01/17 10:31 Order name: Magnesium; Complete Time: 11:49 kdr 01/17 09:35 Order name: EKG; Complete Time: 09:35 ch 01/17 09:35 Order name: EKG - Nurse/Tech; Complete Time: 10:29 ch 01/17 10:31 Order name: NT PRO-BNP; Complete Time: 11:49 kdr 01/17 10:31 Order name: PT-INR; Complete Time: 11:49 kdr 01/17 10:31 Order name: Ptt, Activated; Complete Time: 11:49 kdr 01/17 10:31 Order name: Troponin (emerg Dept Use Only) kdr 01/17 10:31 Order name: XRAY Chest (1 view); Complete Time: 11:49 kdr 01/17 10:31 Order name: CT Head Brain wo Cont; Complete Time: 11:49 kdr 01/17 10:31 Order name: Cardiac monitoring; Complete Time: 11:40 kdr 01/17 10:31 Order name: IV Saline Lock; Complete Time: 11:40 kdr 01/17 10:31 Order name: Labs collected and sent; Complete Time: 11:40 kdr 01/17 10:31 Order name: O2 Per Protocol; Complete Time: 11:40 kdr 01/17 10:31 Order name: O2 Sat Monitoring; Complete Time: 11:40 kdr 01/17 10:31 Order name: Urine Dipstick-Ancillary (obtain specimen); Complete Time: 11:40 kdr Administered Medications: No medications were administered Disposition: 01/17/18 11:54 Discharged to Home. Impression: Weakness. - Condition is Stable. - Discharge Instructions: Fatigue, Weakness, [id number]. - Medication Reconciliation Form, Thank You Letter form. - Follow up: Robert Darden MD; When: 2 - 3 days; Reason: If symptoms return, Further diagnostic work-up, Recheck today's complaints, Continuance of care, Re-evaluation by your physician. - Problem is an ongoing problem. - Symptoms are unchanged. Signatures: Dispatcher [employer] EDEli Galvin, RN RN Rola Kamara RN RN dm5 Fuentes Campos MD MD kdr Corrections: (The following items were deleted from the chart) 12:23 11:54 01/17/2018 11:54 Discharged to Home. Impression: Weakness. Condition is Stable. dm5 Forms are Medication Reconciliation Form, Thank You Letter, Antibiotic Education, Prescription Opioid Use. Follow up: Robert Darden; When: 2 - 3 days; Reason: If symptoms return, Further diagnostic work-up, Recheck today's complaints, Continuance of care, Re-evaluation by your physician. Problem is an ongoing problem. Symptoms are unchanged. kdr
[2018-01-17 12:11] LABS: Urine Blood NEGATIVE (NEG); Urine Glucose NEGATIVE (NEG); Urine Protein NEGATIVE (NEG); Urine Specific Gravity 1.015 (1.005-1.030); Urine pH 5.5 (5.0-7.0)
[2018-01-17 12:43] VITALS: TEMP 98.3
[2018-01-17 12:45] VITALS: BP 158/69; O2SAT 96
== END 2018-01-17 12:23 | disposition home or self-care (01) ==
LOC: ER 09:18
DX: R53.1 Weakness (principal); I10 Essential (primary) hypertension; E03.9 Hypothyroidism, unspecified; E11.9 Type 2 diabetes mellitus without complications; Z79.4 Long term (current) use of insulin; Z88.1 Allergy status to other antibiotic agents; Z88.8 Allergy status to other drugs, medicaments and biological substances
CPT/HCPCS: 36415; 70450; 71045; 80048; 80076; 81003; 82962; 83735; 83880; 84484; 85025; 85610; 85730; 93005; 99284

== ENCOUNTER 2018-02-26 10:41 | Emergency (ER) | payer OTHER, MEDICARE ==
--- OUTSIDE RECORDS SUMMARY | 2018-02-26 10:43 | XMS REPORT ---
:1945 [facility] Address [address] [place] [address] Care Team Providers Name Role Phone LUCAS [...] 315 mg/dL 70-110 Notified RED JAQUEZ/TESTED AT [facility] gkzk=[id number]) [address] [place] [id number] POCT-GLUCOSE [id number] 08:26:00 Test Item Value Reference Range Comments POC-GLUCOSE METER (BEAKER) 304 mg/dL 70-110 Notified RED JAQUEZ/TESTED AT [facility] (test drxu=3190) [address] [place] [address] [id number] 06:46:00 Test Item Value Reference Range Comments MAGNESIUM (BEAKER) (test 2.2 mg/dL 1.6-2.6 Specimen slightly hemolyzed lqfk=295) BASIC METABOLIC [id number] 06:46:00 Test Item Value Reference Range Comments SODIUM (BEAKER) (test 133 meq/L 136-145 okss=318) POTASSIUM (BEAKER) (test 4.0 meq/L 3.5-5.1 Specimen slightly dkip=270) hemolyzed CHLORIDE (BEAKER) (test 101 meq/L 98-107 vyfl=939) CO2 (BEAKER) (test 24 meq/L 22-29 ebml=209) BLOOD UREA NITROGEN 17 mg/dL 7-21 (BEAKER) (test irds=040) CREATININE (BEAKER) (test 1.19 mg/dL 0.57-1.25 Specimen slightly jwmv=170) hemolyzed GLUCOSE RANDOM (BEAKER) 315 mg/dL 70-105 (test xpfj=932) CALCIUM (BEAKER) (test 9.5 mg/dL 8.4-10.2 dbxo=356) EGFR (BEAKER) (test 60 mL/min/1.73 sq m ESTIMATED GFR IS NOT rrpk=5005) ACCURATE CREATININE CLEARANCE IN PREDICTING GLOMERULAR FILTRATION RATE. ESTIMATED GFR IS NOT APPLICABLE FOR DIALYSIS PATIENTS. CBC W/PLT COUNT & AUTO [id number] 06:43:00 Test Item Value Reference Range Comments WHITE BLOOD CELL COUNT (BEAKER) (test hjxp=359) 6.9 K/ L 3.5-10.5 RED BLOOD CELL COUNT (BEAKER) (test eqrs=922) 5.14 M/ L 4.63-6.08 HEMOGLOBIN (BEAKER) (test nfei=981) 15.6 GM/DL 13.7-17.5 HEMATOCRIT (BEAKER) (test csyy=889) 46.3 % 40.1-51.0 MEAN CORPUSCULAR VOLUME (BEAKER) (test zgov=929) 90.1 fL 79.0-92.2 MEAN CORPUSCULAR HEMOGLOBIN (BEAKER) (test 30.4 pg 25.7-32.2 eebt=080) MEAN CORPUSCULAR HEMOGLOBIN CONC (BEAKER) (test 33.7 GM/DL 32.3-36.5 pmfa=398) RED CELL DISTRIBUTION WIDTH (BEAKER) (test 12.5 % 11.6-14.4 yqoy=631) PLATELET COUNT (BEAKER) (test qgbf=857) 172 K/CU MM 150-450 MEAN PLATELET VOLUME (BEAKER) (test yfva=730) 11.2 fL 9.4-12.4 NUCLEATED RED BLOOD CELLS (BEAKER) (test 0 /100 WBC 0-0 qbhe=866) NEUTROPHILS RELATIVE PERCENT (BEAKER) (test 60 % tamo=238) LYMPHOCYTES RELATIVE PERCENT (BEAKER) (test 26 % oqtn=650) MONOCYTES RELATIVE PERCENT (BEAKER) (test 10 % uoyt=310) EOSINOPHILS RELATIVE PERCENT (BEAKER) (test 3 % fkif=502) BASOPHILS RELATIVE PERCENT (BEAKER) (test 1 % ihdk=459) NEUTROPHILS ABSOLUTE COUNT (BEAKER) (test 4.11 K/ L 1.78-5.38 jxtg=321) LYMPHOCYTES ABSOLUTE COUNT (BEAKER) (test 1.79 K/ L 1.32-3.57 scxk=697) MONOCYTES ABSOLUTE COUNT (BEAKER) (test 0.66 K/ L 0.30-0.82 yynf=246) EOSINOPHILS ABSOLUTE COUNT (BEAKER) (test 0.22 K/ L 0.04-0.54 phky=716) BASOPHILS ABSOLUTE COUNT (BEAKER) (test 0.04 K/ L 0.01-0.08 ohgn=102) IMMATURE GRANULOCYTES-RELATIVE PERCENT (BEAKER) 1 % 0-1 (test kuci=2898) [id number] 02:37:00 Test Item Value Reference Range Comments RPR SCREEN (BEAKER) (test pcwh=363) Nonreactive Nonreactive POCT-GLUCOSE [id number] 00:03:00 Test Item Value Reference Range Comments POC-GLUCOSE METER (BEAKER) 338 mg/dL 70-110 Notified RED JAQUEZ/TESTED AT [facility] (test hgbt=7203) [address] [facility] [address] MR, MRA, NECK, WITHOUT IV [id number] 21:41:00Reason for exam:-> strokeFINAL REPORT MRA Head CLINICAL HISTORY: Stroke TECHNIQUE: MRA of the head utilizing 3-D ypuu-sz-zwflwn technique, with 3-D reconstructions. COMPARISON: None FINDINGS: [...] MDReport Verified Date/Time: 12/17/2017 21:41:27 Reading Location: [facility] Radiology Reading Room MR, MRA, BRAIN, WITHOUT [id number] 21:41: 00Reason for exam:->strokeFINAL REPORT MRA Head [...] of the neck utilizing 2-D and 3-D avro-qv-yyoppn technique, with 3-D reconstructions. COMPARISON: None IMPRESSION:There is 66% stenosis of the proximal left internal carotid artery by NASCET criteria. There is 20%stenosis of the proximal right internal carotid artery by NASCET criteria. There is severe attenuation of the left vertebral artery. There is preserved antegrade flow in the right vertebral artery. Signed: Chaparro Gomes MDReport Verified Date/Time: 2017 21:41:27 Reading Location: [facility] Reading Room MR, BRAIN, WITHOUT [id number] 21:30:00Reason for exam:->Stroke evaluationFINAL REPORT MRI Brain [...] Verified Date/Time: 12/17/2017 21:30: 55 Reading Location: [facility] Radiology Reading Room POCT-GLUCOSE [id number] 18:05:00 Test Item Value Reference Range Comments POC-GLUCOSE METER (BEAKER) 270 mg/dL 70-110 TESTED AT [address] (test xqak=5091) [facility] [address] VITAMIN [id number] 17:03:00 Test Item Value Reference Range Comments VITAMIN B12 (BEAKER) (test cucv=012) < pg/mL 213-816 [id number] 15:45:00 Test Item Value Reference Range Comments HOMOCYSTEINE (BEAKER) (test forz=084) 16.8 umol/L 5.1-15.4 POCT-GLUCOSE [id number] 12:49:00 Test Item Value Reference Range Comments POC-GLUCOSE METER (BEAKER) 308 mg/dL 70-110 Notified RED JAQUEZ/TESTED AT [facility] (test ijaq=5834) [address] [place] [address] CREATINE KINASE (CK), TOTAL AND [id number] 09:37:00 Test Item Value Reference Range Comments CREATINE KINASE TOTAL (BEAKER) (test mzhs=245) 78 U/L 29-200 CREATINE KINASE-MB (BEAKER) (test cdsd=150) 1.9 ng/mL 0.0-6.6 CREATINE KINASE-MB INDEX (BEAKER) (test tnfx=813) 2.4 % CK-MB Reference Range:<6.7 Normal6.7-10.0 Borderline>10.0 AbnormalTROPONIN [id number] 09:37:00 Test Item Value Reference Range Comments TROPONIN I (BEAKER) (test tokn=951) 0.03 ng/mL 0.00-0.03 Troponin I (TnI) levels [...] acidosis, acute neurological disease, and persistent tachyarrhythmia.HEMOGLOBIN [id number] 09:27:00 Test Item Value Reference Range Comments HEMOGLOBIN A1C (BEAKER) (test emqp=882) 12.1 % 4.3-6.1 POCT-GLUCOSE [id number] 08:53:00 Test Item Value Reference Range Comments POC-GLUCOSE METER (BEAKER) 289 mg/dL 70-110 TESTED AT [facility] [address] [facility] (test ziut=2173) [facility] [address] T4, [id number] 05:26:00 Test Item Value Reference Range Comments FREE T4 (BEAKER) (test topr=628) 0.83 ng/dL 0.70-1.48 TSH/FREE T4 IF [id number] 04:27:00 Test Item Value Reference Range Comments THYROID STIMULATING HORMONE (BEAKER) (test 10.00 uIU/mL 0.35-4.94 hpac=126) VITAMIN B12 AND [id number] 04:27:00 Test Item Value Reference Range Comments VITAMIN B12 (BEAKER) (test qbry=858) < pg/mL 213-816 FOLATE (BEAKER) (test corc=836) 15.7 ng/mL >=7.0 [id number] 03:52:00 Test Item Value Reference Range Comments MAGNESIUM (BEAKER) (test 2.2 mg/dL 1.6-2.6 Specimen slightly hemolyzed dyzx=815) BASIC METABOLIC [id number] 03:52:00 Test Item Value Reference Range Comments SODIUM (BEAKER) (test 133 meq/L 136-145 dtpx=680) POTASSIUM (BEAKER) (test 3.8 meq/L 3.5-5.1 Specimen slightly rvfa=693) hemolyzed CHLORIDE (BEAKER) (test 100 meq/L 98-107 qbxc=695) CO2 (BEAKER) (test 20 meq/L 22-29 hnms=781) BLOOD UREA NITROGEN 17 mg/dL 7-21 (BEAKER) (test lonc=327) CREATININE (BEAKER) (test 1.11 mg/dL 0.57-1.25 Specimen slightly wpkk=078) hemolyzed GLUCOSE RANDOM (BEAKER) 340 mg/dL 70-105 (test ttho=549) CALCIUM (BEAKER) (test 9.4 mg/dL 8.4-10.2 bhqp=848) EGFR (BEAKER) (test 65 mL/min/1.73 sq m ESTIMATED GFR IS NOT wbbb=4564) ACCURATE CREATININE CLEARANCE IN PREDICTING GLOMERULAR FILTRATION RATE. ESTIMATED GFR IS NOT APPLICABLE FOR DIALYSIS PATIENTS. LIPID [id number] 03:52:00 Test Item Value Reference Range Comments TRIGLYCERIDES (BEAKER) (test 351 mg/dL Specimen slightly hemolyzed mquf=303) CHOLESTEROL (BEAKER) (test 216 mg/dL Specimen slightly hemolyzed rfco=208) HDL CHOLESTEROL (BEAKER) (test 35 mg/dL yxxr=054) LDL CHOLESTEROL CALCULATED 111 mg/dL (BEAKER) (test mrxi=731) Triglyceride Reference Range: Low Risk <150 Borderline 150- 199 High Risk 200-499 Very High Risk >=500Cholesterol Reference Range: Low Risk <200 Borderline 200-239 High Risk > 240HDL Cholesterol Reference Range: Low Risk >=60 High Risk <40LDL Cholesterol Reference Range: Optimal <100 Near Optimal 100-129 Borderline 130-159 High 160-189 Very High >=190CBC W/PLT COUNT & AUTO [id number] 03:29:00 Test Item Value Reference Range Comments WHITE BLOOD CELL COUNT (BEAKER) (test xtig=927) 7.2 K/ L 3.5-10.5 RED BLOOD CELL COUNT (BEAKER) (test sayi=295) 4.80 M/ L 4.63-6.08 HEMOGLOBIN (BEAKER) (test chsk=214) 14.5 GM/DL 13.7-17.5 HEMATOCRIT (BEAKER) (test bpvt=809) 43.2 % 40.1-51.0 MEAN CORPUSCULAR VOLUME (BEAKER) (test ubaq=556) 90.0 fL 79.0-92.2 MEAN CORPUSCULAR HEMOGLOBIN (BEAKER) (test 30.2 pg 25.7-32.2 lpuh=755) MEAN CORPUSCULAR HEMOGLOBIN CONC (BEAKER) (test 33.6 GM/DL 32.3-36.5 vzra=017) RED CELL DISTRIBUTION WIDTH (BEAKER) (test 12.4 % 11.6-14.4 alwn=180) PLATELET COUNT (BEAKER) (test jwmn=633) 176 K/CU MM 150-450 MEAN PLATELET VOLUME (BEAKER) (test wvwr=804) 10.9 fL 9.4-12.4 NUCLEATED RED BLOOD CELLS (BEAKER) (test 0 /100 WBC 0-0 cmav=462) NEUTROPHILS RELATIVE PERCENT (BEAKER) (test 63 % srzw=752) LYMPHOCYTES RELATIVE PERCENT (BEAKER) (test 23 % ahbj=802) MONOCYTES RELATIVE PERCENT (BEAKER) (test 9 % zfle=737) EOSINOPHILS RELATIVE PERCENT (BEAKER) (test 3 % lgso=955) BASOPHILS RELATIVE PERCENT (BEAKER) (test 1 % twyu=318) NEUTROPHILS ABSOLUTE COUNT (BEAKER) (test 4.53 K/ L 1.78-5.38 optf=024) LYMPHOCYTES ABSOLUTE COUNT (BEAKER) (test 1.68 K/ L 1.32-3.57 msip=351) MONOCYTES ABSOLUTE COUNT (BEAKER) (test 0.64 K/ L 0.30-0.82 dqau=983) EOSINOPHILS ABSOLUTE COUNT (BEAKER) (test 0.24 K/ L 0.04-0.54 jaqx=623) BASOPHILS ABSOLUTE COUNT (BEAKER) (test 0.04 K/ L 0.01-0.08 gmud=047) IMMATURE GRANULOCYTES-RELATIVE PERCENT (BEAKER) 1 % 0-1 (test jxmu=6564)
[2018-02-26] MEDS ORDERED: NA CHLORIDE 0.9% 1,000 ML ONE (10:57)
--- NOTE | 2018-02-26 12:20 | EDPHYS ---
Physician Documentation [facility] Name: Otto Montiel Age: 73 yrs Sex: Male : 1945 Arrival Date: 02/26/2018 Time: 10:42 Bed 18 Private MD: Robert Darden V ED Physician Julius Mcmullen HPI: 02/26 11:08 This 73 yrs old Male presents to ER via Ambulatory with complaints of Leg jmm Pain. 11:08 The patient presents with pain, that is acute. jmm 11:18 The complaints affect the right ryan, anterior aspect of right ankle and dorsum of jmm right foot. Onset: The symptoms/episode began/occurred 3 day(s) ago. Modifying factors: The symptoms are alleviated by nothing. the symptoms are aggravated by nothing. This is a 73 year old male with a history of CVA, DM, HTN that presents to the ED with right leg pain which began approx 3 days ago. Patient states having ongoing stiffness to the right leg since his CVA 1 month prior. Patient denies shortness of breath, fever, chest pain. . Historical: - Allergies: 10:51 Actifed Cold-Allergy; aj 10:51 Celebrex; aj 10:51 Levaquin; aj 10:51 Losartan; aj 10:51 metformin; aj 10:51 steroids; aj - Home Meds: 10:51 amlodipine 10 mg tab 1 tab once daily [Active]; atorvastatin 80 mg Oral tab 1 tab once aj daily [Active]; glipizide 2.5 mg Oral tr24 [Active]; lantus solo star 40 Units once daily in the AM [Active]; levothyroxine 200 mcg tab 1 tab once daily [Active]; - PMHx: 10:51 CVA; Diabetes - IDDM; Hypertension; Hypothyroidism; macular degeneration; legally blind;aj - PSHx: 10:51 Ring finger amputation; L arm; L knee; aj - Immunization history:: Adult Immunizations up to date. - Social history:: Smoking status: Patient/guardian denies using tobacco. - Ebola Screening: : Patient negative for fever greater than or equal to 101.5 degrees Fahrenheit, and additional compatible Ebola Virus Disease symptoms Patient denies exposure to infectious person Patient denies travel to an Ebola-affected area in the 21 days before illness onset No symptoms or risks identified at this time. ROS: 11:18 Constitutional: Negative for fever, chills, and weight loss, Cardiovascular: Negative jm for chest pain, palpitations, and edema, Respiratory: Negative for shortness of breath, cough, wheezing, and pleuritic chest pain. 11:18 MS/extremity: Positive for pain. 11:18 All other systems are negative. Exam: 11:18 Head/Face: atraumatic. Eyes: EOMI, no conjunctival erythema appreciated ENT: Moist jmm Mucus Membranes Neck: Trachea midline, Supple Chest/axilla: Normal chest wall appearance and motion. Cardiovascular: Regular rate and rhythm. No edema appreciated Respiratory: Normal respirations, no respiratory distress appreciated 11:18 Constitutional: The patient appears in no acute distress, alert, awake. 11:18 Musculoskeletal/extremity: no swelling is appreciated to the right lower extremity, full dorsalis pedis pulse appreciated, full strenth against resistance noted on dorsiflexion and plantarflexion, compartments are soft, NVI. 11:18 Skin: Appearance: Color: normal in color. 11:18 Neuro: Orientation: is normal, Mentation: is normal, Memory: is normal, Motor: is normal. 11:18 Psych: Behavior/mood is pleasant, cooperative. Vital Signs: 10:51 BP 154 / 79; Pulse 70; Resp 16; Temp 97.9; Pulse Ox 98% on R/A; Weight 91.17 kg; Height aj 5 ft. 9 in. (175.26 cm); 11:37 BP 155 / 69; Pulse 62; Resp 18; Pulse Ox 100% on R/A; em 12:37 BP 151 / 71; Pulse 67; Resp 14; Pulse Ox 100% on R/A; em 10:51 Body Mass Index 29.68 (91.17 kg, 175.26 cm) aj MDM: 11:07 Patient medically screened. [facility] 11:21 Data reviewed: vital signs, nurses notes. [facility] 12:18 Counseling: I had a detailed discussion with the patient and/or guardian regarding: the [facility] historical points, exam findings, and any diagnostic results supporting the discharge/admit diagnosis, the need for outpatient follow up, to return to the emergency department if symptoms worsen or persist or if there are any questions or concerns that arise at home. 12:18 Data interpreted: Pulse oximetry: on room air is 100 %. Interpretation: normal. [facility] 12:18 ED course: US negative for dvt. Patient has full pulses and strength to the affected [facility] extremity. Patient is encouraged to follow up with PCP in 2 to 3 days. Otherwise given strict return precautions. Patient understood and agrees with the plan of care. . 02/26 11:12 Order name: US Extremity Venous Unilateral Ltd [facility] Administered Medications: No medications were administered Disposition: 17:33 Co-signature as Attending Physician, Julius Mcmullen MD. Disposition: 02/26/18 12:19 Discharged to Home. Impression: Pain in right leg. - Condition is Stable. - Discharge Instructions: Musculoskeletal Pain. - Prescriptions for orphenadrine citrate 100 mg Oral Tablet Sustained Release - take 1 tablet by ORAL route 2 times per day As needed; 20 tablet. - Medication Reconciliation Form, Thank You Letter, Antibiotic Education, Prescription Opioid Use form. - Follow up: Robert Darden MD; When: 2 - 3 days; Reason: Recheck today's complaints, Continuance of care, Re-evaluation by your physician. Signatures: Dispatcher [employer] Shaila Naranjo, RED RN Eyad Feldman PA PA Austyn Gomez, RECRUITMENT COORDINATOR RECRUITMENT COORDINATOR em Julius Mcmullen MD MD Corrections: (The following items were deleted from the chart) 11:20 11:08 The patient presents with pain, that is acute, [facility] 12:38 12:19 02/26/2018 12:19 Discharged to Home. Impression: Pain in right leg. Condition is em Stable. Forms are Medication Reconciliation Form, Thank You Letter, Antibiotic Education, Prescription Opioid Use. Follow up: Robert Darden; When: 2 - 3 days; Reason: Recheck today's complaints, Continuance of care, Re-evaluation by your physician. [facility]
--- NOTE | 2018-02-26 12:20 | ER ---
Nurse's Notes [facility] Name: Otto Montiel Age: 73 yrs Sex: Male : 1945 Arrival Date: 02/26/2018 Time: 10:42 Bed 18 Private MD: Robert Darden V Diagnosis: Pain in right leg Presentation: 02/26 10:49 Presenting complaint: Patient states: Right leg "stiffness" and pain for 3 days. aj Transition of care: patient was not received from another setting of care. Onset of symptoms was February 22, 2018. Risk Assessment: Do you want to hurt yourself or someone else? Patient reports no desire to harm self or others. Initial Sepsis Screen: Does the patient meet any 2 criteria? No. Patient's initial sepsis screen is negative. Does the patient have a suspected source of infection? No. Patient's initial sepsis screen is negative. Care prior to arrival: None. 10:49 Method Of Arrival: Ambulatory aj 10:49 Acuity: DARIUS 3 aj Triage Assessment: 10:51 General: Appears in no apparent distress. comfortable, Behavior is calm, cooperative, aj appropriate for age. Pain: Complains of pain in right leg. Neuro: Level of Consciousness is awake, alert, obeys commands, Oriented to person, place, time, situation, Appropriate for age. Respiratory: Airway is patent Respiratory effort is even, unlabored, Respiratory pattern is regular, symmetrical. Derm: Skin is intact, is healthy with good turgor, Skin is pink, warm \\T\\ dry. normal. Musculoskeletal: Reports pain in right leg. Historical: - Allergies: 10:51 Actifed Cold-Allergy; aj 10:51 Celebrex; aj 10:51 Levaquin; aj 10:51 Losartan; aj 10:51 metformin; aj 10:51 steroids; aj - Home Meds: 10:51 amlodipine 10 mg tab 1 tab once daily [Active]; atorvastatin 80 mg Oral tab 1 tab once aj daily [Active]; glipizide 2.5 mg Oral tr24 [Active]; lantus solo star 40 Units once daily in the AM [Active]; levothyroxine 200 mcg tab 1 tab once daily [Active]; - PMHx: 10:51 CVA; Diabetes - IDDM; Hypertension; Hypothyroidism; macular degeneration; legally blind;aj - PSHx: 10:51 Ring finger amputation; L arm; L knee; aj - Immunization history:: Adult Immunizations up to date. - Social history:: Smoking status: Patient/guardian denies using tobacco. - Ebola Screening: : Patient negative for fever greater than or equal to 101.5 degrees Fahrenheit, and additional compatible Ebola Virus Disease symptoms Patient denies exposure to infectious person Patient denies travel to an Ebola-affected area in the 21 days before illness onset No symptoms or risks identified at this time. Screenin:34 Abuse screen: Denies threats or abuse. Nutritional screening: No deficits noted. em Tuberculosis screening: No symptoms or risk factors identified. Fall Risk None identified. Assessment: 11:15 General: Appears in no apparent distress. comfortable, Behavior is calm, cooperative. em Pain: Denies pain. Neuro: Level of Consciousness is awake, alert, obeys commands, Oriented to person, place, time, situation, Moves all extremities. Speech is normal, Reports having a stiff right leg. Cardiovascular: Denies chest pain, shortness of breath, Capillary refill < 3 seconds Patient's skin is warm and dry. Pulses are all present. Respiratory: Airway is patent Respiratory effort is even, unlabored, Respiratory pattern is regular, symmetrical. GI: Abdomen is flat, Patient currently denies nausea, vomiting. : No signs and/or symptoms were reported regarding the genitourinary system. EENT: No signs and/or symptoms were reported regarding the EENT system. Derm: Skin is intact, Skin is pink, warm \\T\\ dry. Musculoskeletal: Range of motion: intact in all extremities. 11:30 General: The previous assessment is accurate. Call light remains within reach. . ss 12:32 Reassessment: Patient appears in no apparent distress at this time. Patient and/or em family updated on plan of care and expected duration. Pain level reassessed. Patient is alert, oriented x 3, equal unlabored respirations, skin warm/dry/pink. Patient denies pain at this time. Vital Signs: 10:51 BP 154 / 79; Pulse 70; Resp 16; Temp 97.9; Pulse Ox 98% on R/A; Weight 91.17 kg; Height aj 5 ft. 9 in. (175.26 cm); 11:37 BP 155 / 69; Pulse 62; Resp 18; Pulse Ox 100% on R/A; em 12:37 BP 151 / 71; Pulse 67; Resp 14; Pulse Ox 100% on R/A; em 10:51 Body Mass Index 29.68 (91.17 kg, 175.26 cm) ED Course: 10:42 Patient arrived in ED. mr 10:42 Robert Darden MD is Private Physician. mr 10:50 Triage completed. aj 10:51 Arm band placed on left wrist. Patient placed in an exam room. aj 10:52 Eyad Haney PA is PHCP. [facility] 10:52 Julius Mcumllen MD is Attending Physician. jmm 11:33 Austyn Watson LVN is Primary Nurse. em 11:34 Patient has correct armband on for positive identification. Bed in low position. Call em light in reach. Side rails up X2. Adult w/ patient. 11:34 No provider procedures requiring assistance completed. em 12:18 Robert Darden MD is Referral Physician. jmm 12:37 Patient did not have IV access during this emergency room visit. em 12:47 US Extremity Venous Unilateral Ltd In Process Unspecified. EDMS Administered Medications: No medications were administered Outcome: 12:19 Discharge ordered by MD. jmm 12:37 Discharged to home ambulatory, with family. em 12:37 Condition: good 12:37 Discharge instructions given to patient, family, Instructed on discharge instructions, follow up and referral plans. medication usage, Demonstrated understanding of instructions, follow-up care, medications, Prescriptions given X 1. 12:38 Patient left the ED. em Signatures: Dispatcher [employer] EDMS Shaila Vidal, RN RN Eyad Feldman PA PA jmm Rivera, Maria mr Austyn Watson, CLINICAL TECH CLINICAL TECH Tarsha Patel, [place]
[2018-02-26 12:48] VITALS: TEMP 97.9
[2018-02-26 12:49] VITALS: O2SAT 100
[2018-02-26 12:50] VITALS: BP 151/71
--- NOTE | 2018-02-26 13:32 | RAD REPORT ---
EXAM DESCRIPTION: US - Extremity Venous Uni Ltd - 02/26/2018 12:47 pm CLINICAL HISTORY: Right lower extremity pain and swelling COMPARISON: None. TECHNIQUE: Real-time sonographic evaluation of the right lower extremity deep venous systems was per formed. FINDINGS: Normal compressibility, flow augmentation, phasic flow and spontaneous flow are identified in the right lower extremity common femoral, superficial femoral, popliteal and posterior tibial vei ns. No intraluminal filling defects seen. IMPRESSION: No DVT in the right lower extremity.
== END 2018-02-26 12:38 | disposition home or self-care (01) ==
LOC: ER 10:41
DX: M79.604 Pain in right leg (principal); I10 Essential (primary) hypertension; E11.9 Type 2 diabetes mellitus without complications; E03.9 Hypothyroidism, unspecified; Z79.4 Long term (current) use of insulin; Z88.1 Allergy status to other antibiotic agents; Z88.6 Allergy status to analgesic agent; Z88.8 Allergy status to other drugs, medicaments and biological substances
CPT/HCPCS: 93971; 99283; J7030

== ENCOUNTER 2018-04-30 09:39 | Observation (INO) | payer OTHER, MEDICARE ==
--- OUTSIDE RECORDS SUMMARY | 2018-04-30 09:42 | XMS REPORT | Clinical Summary ---
:1945 Author Organization [facility] Address [address] [place] [address] Care Team Providers Name Role Phone Katalina Robert Rodrick Primary Care Provider Allergies Active Allergy Reactions Severity Noted Date Comments Celecoxib 12/17/2017 Chlorpheniramine-Phenylpropan 12/17/2017 Corticosteroids (Glucocorticoids) 12/17/2017 Levofloxacin Rash Medium 12/17/2017 Losartan 12/17/2017 Metformin 12/17/2017 Thiazides 12/17/2017 Medications Medication Sig Dispensed Refills Start End Date Status Date aspirin 81 MG EC Take 81 mg by 0 Active tablet mouth daily. atorvastatin Take 1 [...] daily. amLODIPine Take 5 mg by mouth 0 12/19/19 Discontinued (NORVASC) 2.5 MG daily. 18 tablet glipiZIDE Take 2.5 mg by 0 12/19/19 Discontinued (GLUCOTROL XL) 2.5 mouth daily. 18 MG 24 hr tablet levothyroxine Take 175 mcg by 0 12/19/19 Discontinued (SYNTHROID, mouth Every 18 LEVOTHROID) 175 MCG morning on an tablet empty stomach. glimepiride Take 2 mg by mouth 0 12/19/19 Discontinued (AMARYL) 2 MG every morning 18 tablet before breakfast. Active Problems Problem Noted Date Left carotid artery stenosis 12/18/2017 B12 deficiency 12/18/2017 Macular degeneration 12/17/2017 Essential hypertension 12/17/2017 Other specified hypothyroidism 12/17/2017 Acute left parietal, temporal and occipital strokes 12/17/2017 Type 2 diabetes mellitus with hyperglycemia, without long-term current use of insulin Encounters Date Type Specialty Care Team Description 12/17/2017 - Hospital Cardiology Altagracia Stark Acute left parietal, temporal and occipital strokes (Primary Dx); 12/18/2017 Encounter Crystal Cerebrovascular accident (CVA), unspecified mechanism (HCC); MD Elisa Essential hypertension; Sherwin Mallory Macular degeneration of both eyes, unspecified type; MD Thiago Other specified hypothyroidism; Acute ischemic left MCA stroke (HCC); Aphasia; Hemianopia; Hemisensory deficit; Neurologic gait dysfunction; Sudden visual loss of both eyes; Type 2 diabetes mellitus without complication, without long-term current use of insulin (HCC); Stenosis of left carotid artery; Acute ischemic stroke (HCC); B12 deficiency; Type 2 diabetes mellitus with hyperglycemia, without long-term current use of insulin (HCC); Left carotid artery stenosis 12/17/2017 Orders Only General Internal Medicine after 04/29/2017 Social History Tobacco Use Types Packs/Day Years Used Date Never Smoker Smokeless Tobacco: Never Used Alcohol Use Drinks/Week oz/Week Comments No Sex Assigned at Date Recorded Not on file Job Start Date Occupation Industry Not on file Not on file Not on file Travel History Travel Start Travel End No recent travel history available. Last Filed Vital Signs Vital Sign Reading [...] CDT Plan of Treatment Not on file Procedures Procedure Name Priority Date/Time Associated Comments Diagnosis RHYTHM STRIP - SCAN 12/21/2017 2:12 PM CDT POCT-GLUCOSE METER Routine 12/18/2017 12:18 Results for this PM CDT procedure are in the results section. POCT-GLUCOSE METER Routine 12/18/2017 7:22 Results for this AM CDT procedure are in the results section. CBC W/PLT COUNT & AUTO Routine 12/18/2017 5:32 Results for this DIFFERENTIAL AM CDT procedure are in the results section. INTRINSIC FACTOR Routine 12/18/2017 5:32 Results for this BLOCKING ANTIBODY AM CDT procedure are in the results section. CBC W/PLT COUNT & AUTO Routine 12/18/2017 5:32 Results for this DIFFERENTIAL AM CDT procedure are in the results section. MAGNESIUM Routine 12/18/2017 5:32 Results for this AM CDT procedure are in the results section. BASIC METABOLIC PANEL Routine 12/18/2017 5:32 Results for this (7) AM CDT procedure are in the results section. POCT-GLUCOSE METER Routine 12/18/2017 12:01 Results for this AM CDT procedure are in the results section. MR MRA HEAD WITHOUT GE 12/17/2017 9:24 Results for this CONTRAST PM CDT procedure are in the results section. MR MRA NECK WITHOUT IV GE 12/17/2017 9:24 Results for this CONTRAST PM CDT procedure are in the results section. MR BRAIN WITHOUT IV GE 12/17/2017 9:24 Results for this CONTRAST PM CDT procedure are in the results section. ECHOCARDIOGRAM REPORT - 12/17/2017 5:20 SCAN PM CDT POCT-GLUCOSE METER Routine 12/17/2017 5:18 Results for this PM CDT procedure are in the results section. HOMOCYSTEINE GE 12/17/2017 2:25 Results for this PM CDT procedure are in the results section. VITAMIN B12 Routine 12/17/2017 2:25 Results for this PM CDT procedure are in the results section. METHYLMALONIC ACID, GE 12/17/2017 2:25 Results for this SERUM PM CDT procedure are in the results section. POCT-GLUCOSE METER Routine 12/17/2017 12:45 Results for this PM CDT procedure are in the results section. 2D ECHO MODE W/O GE 12/17/2017 11:34 Results for this DOPPLER AM CDT procedure are in the results section. POCT-GLUCOSE METER Routine 12/17/2017 8:51 Results for this AM CDT procedure are in the results section. TROPONIN I STAT 12/17/2017 8:46 Results for this AM CDT procedure are in the results section. CREATINE KINASE (CK), STAT 12/17/2017 8:46 Results for this TOTAL AND MB AM CDT procedure are in the results section. ECG 12-LEAD Routine 12/17/2017 5:05 AM CDT Procedure Note - Interface, External Ris In - 12/17/2017 5:08 AM CDT Ventricular Rate 67 BPM Atrial Rate 67 BPM P-R Interval 166 ms QRS Duration 94 ms Q-T Interval 428 ms QTC Calculation(Bazett) 452 ms P Huggins 43 degrees R Huggins -18 degrees T Huggins 67 degrees Normal sinus rhythm Nonspecific T wave abnormality Abnormal ECG When compared with ECG of 17-DEC-2017 05:01, Previous ECG has undetermined rhythm, needs review ECG 12-LEAD Routine 12/17/2017 5:05 AM CDT ECG 12-LEAD Routine 12/17/2017 5:01 AM CDT Procedure Note - Interface, External Ris In - 12/17/2017 5:08 AM CDT Ventricular Rate 0 BPM Atrial Rate 0 BPM QRS Duration 0 ms Q-T Interval 0 ms QTC Calculation(Bazett) 0 ms R Huggins 0 degrees T Huggins 0 degrees No QRS complexes found, no ECG analysis possible No previous ECGs available CBC W/PLT COUNT & AUTO Routine 12/17/2017 3:04 AM CDT Results for this DIFFERENTIAL procedure are in the results section. T4, FREE Routine 12/17/2017 3:04 AM CDT CBC W/PLT COUNT & AUTO Routine 12/17/2017 3:04 AM CDT Results for this DIFFERENTIAL procedure are in the results section. MAGNESIUM Routine 12/17/2017 3:04 AM CDT BASIC METABOLIC PANEL (7) Routine 12/17/2017 3:04 AM CDT RPR Routine 12/17/2017 3:04 AM CDT LIPID PANEL Routine 12/17/2017 3:04 AM CDT VITAMIN B12 AND FOLATE Routine 12/17/2017 3:04 AM CDT HEMOGLOBIN A1C Routine 12/17/2017 3:04 AM CDT TSH/FREE T4 IF INDICATED Routine 12/17/2017 3:04 AM CDT after 04/29/2017 Results RHYTHM STRIP - SCAN (12/21/2017 2:12 PM CDT) Narrative Performed At POC-Glucose meter (12/18/2017 12:18 PM CDT)Only the most recent of6 resultswithin the time period is included. POC-Glucose Meter 315 (H)Comment: Notified 70 - 110 mg/dL [facility] RED JAQUEZ/TESTED AT [address] [address] Specimen Blood Performing Organization Address City/State/Zipcode Phone Number [address] [phone] CENTER CBC with platelet count + automated diff (12/18/2017 5:32 AM CDT)Only the most recent of2 resultswithin the time period is included. WBC 6.9 3.5 - 10.5 K/L [facility] RBC 5.14 4.63 - 6.08 M/L [facility] Hemoglobin 15.6 13.7 - 17.5 GM/DL [facility] Hematocrit 46.3 40.1 - 51.0 % [facility] MCV 90.1 79.0 - 92.2 fL [facility] MCH 30.4 25.7 - 32.2 pg [facility] MCHC 33.7 32.3 - 36.5 GM/DL [facility] RDW 12.5 11.6 - 14.4 % [facility] Platelets 172 150 - 450 K/CU MM [facility] MPV 11.2 9.4 - 12.4 fL [facility] nRBC 0 0 - 0 /100 WBC [facility] % Neutros 60 % [facility] % Lymphs 26 % [facility] % Monos 10 % [facility] % Eos 3 % [facility] % Baso 1 % [facility] # Neutros 4.11 1.78 - 5.38 K/L [facility] # Lymphs 1.79 1.32 - 3.57 K/L [facility] # Monos 0.66 0.30 - 0.82 K/L [facility] # Eos 0.22 0.04 - 0.54 K/L [facility] # Baso 0.04 0.01 - 0.08 K/L [facility] Immature Granulocytes-Relative 1 0 - 1 % [facility] Specimen Blood Performing Organization Address City/[facility]/Zipcode Phone Number [facility] [address] [place] [address] CENTER Intrinsic factor blocking antibody (12/18/2017 5:32 AM CDT) Intrinsic Factor POSITIVE (A) ADULTS: NEGATIVE [facility] Block Ab Comment: INCORPORATED For additional information, please refere to [email or web address]/faq/IFAB (This link is being provided for informational/educational purposes only.) Specimen Blood Narrative Performed At Performing Lab [facility] [employer] [facility] [place] [address] [place] [address] Amie Stroud MD, PhD, [place] Performing Organization Address City/[facility] Centercode Phone Number [facility] [place] [address] INCORPORATED [address] [facility] Magnesium (12/18/2017 5:32 AM CDT)Only the most recent of2 resultswithin the time period is included. Magnesium 2.2Comment: Specimen slightly 1.6 - 2.6 mg/dL [facility] Specimen Blood Performing Organization Address City/State/Zipcode Phone Number [address] [address] [phone] [place] Basic metabolic panel (12/18/2017 5:32 AM CDT)Only the most recent of2 resultswithin the time period is included. Sodium 133 (L) 136 - 145 meq/L [facility] Potassium 4.0Comment: Specimen slightly 3.5 - 5.1 meq/L [facility] Chloride 101 98 - 107 meq/L [facility] CO2 24 22 - 29 meq/L [facility] BUN 17 7 - 21 mg/dL [facility] Creatinine 1.19Comment: Specimen 0.57 - 1.25 mg/dL [facility] slightly [facility] Glucose 315 (H) 70 - 105 mg/dL [facility] Calcium 9.5 8.4 - 10.2 mg/dL [facility] EGFR 60Comment: ESTIMATED GFR IS mL/min/1.73 sq m [facility] NOT ACCURATE CREATININE [facility] CLEARANCE IN PREDICTING GLOMERULAR FILTRATION RATE. ESTIMATED GFR IS NOT APPLICABLE FOR DIALYSIS PATIENTS. Specimen Blood Performing Organization Address City/State/Zipcode Phone Number [address] [address] [place] MR brain without IV contrast (12/17/2017 9:24 PM CDT) Narrative Performed At FINAL REPORT SeeFuture MRI Brain without contrast Clinical History: Stroke [...] MD Report Verified Date/Time:12/17/2017 21:30:55 Reading Location: [facility] Radiology Reading Room Procedure Note Interface, External [...] Report Verified Date/Time: 12/17/2017 21:30:55 Reading Location: [facility] Radiology Reading Room Performing Organization Address City/State/Zipcode Phone Number GE RIS MRA neck without IV contrast (12/17/2017 9:24 PM CDT) Narrative Performed At FINAL REPORT [facility] MRA Head CLINICAL HISTORY: Stroke TECHNIQUE: MRA of the head utilizing 3-D cpsp-yc-jjbthb technique, with 3-D reconstructions. COMPARISON: None FINDINGS: [...] of the neck utilizing 2-D and 3-D fbfp-ug-iamqzc technique, with 3-D reconstructions. COMPARISON: None IMPRESSION: [...] MD Report Verified Date/Time:12/17/2017 21:41:27 Reading Location: [facility] Radiology Reading Room Procedure Note Interface, External Ris In - 12/17/2017 9:43 PM CDT FINAL REPORT MRA Head CLINICAL HISTORY: Stroke TECHNIQUE: MRA of the head utilizing 3-D ppml-nv-qiwoqm technique, with 3-D reconstructions. COMPARISON: None FINDINGS: [...] of the neck utilizing 2-D and 3-D avlv-wh-itzhym technique, with 3-D reconstructions. COMPARISON: None IMPRESSION: [...] Report Verified Date/Time: 12/17/2017 21:41:27 Reading Location: [facility] Radiology Reading Room Performing Organization Address City/State/Zipcode Phone Number See[facility] MRA head without IV contrast (12/17/2017 9:24 PM CDT) Narrative Performed At FINAL REPORT [employer] MRA Head CLINICAL HISTORY: Stroke TECHNIQUE: MRA of the head utilizing 3-D hmww-sr-iatobt technique, with 3-D reconstructions. COMPARISON: None FINDINGS: [...] of the neck utilizing 2-D and 3-D qaqx-wz-zdjtgv technique, with 3-D reconstructions. COMPARISON: None IMPRESSION: [...] MD Report Verified Date/Time:12/17/2017 21:41:27 Reading Location: [facility] Radiology Reading Room Procedure Note Interface, External Ris In - 12/17/2017 9:43 PM CDT FINAL REPORT MRA Head CLINICAL HISTORY: Stroke TECHNIQUE: MRA of the head utilizing 3-D gmfr-oe-lpbbks technique, with 3-D reconstructions. COMPARISON: None FINDINGS: [...] of the neck utilizing 2-D and 3-D quaz-rb-urrrej technique, with 3-D reconstructions. COMPARISON: None IMPRESSION: [...] Report Verified Date/Time: 12/17/2017 21:41:27 Reading Location: [facility] Radiology Reading Room Performing Organization Address City/[facility]/Zipcode Phone Number [facility] ECHOCARDIOGRAM REPORT - SCAN (12/17/2017 5:20 PM CDT) Narrative Performed At Methylmalonic acid (12/17/2017 2:25 PM CDT) Methlymalonic Acid,Ser 2009 (H) 87 - 318 nmol/L [employer] Comment: INCORPORATED This test was developed and its analytical performance characteristics have been determined by [facility]. It has not been cleared or approved by FDA. This assay has been validated pursuant to the CLIA regulations and is used for clinical purposes. Specimen Blood - Arm, Right Narrative Performed At Performing Lab [facility] [address] [place] [address] Amie Stroud MD, PhD, [place] Performing Organization Address City/[facility] Centercode [place] [address] INCORPORATED [address] [employer] [facility] Homocysteine (12/17/2017 2:25 PM CDT) Homocysteine 16.8 (H) 5.1 - 15.4 umol/L [facility] Specimen Blood - Arm, Right Performing Organization Address City/[facility]/Zipcode Phone Number [facility] [address] [place], [place] [phone] CENTER Vitamin B12 (12/17/2017 2:25 PM CDT) Vitamin B12 <146 (L) 213 - 816 pg/mL [facility] Specimen Blood - Arm, Right Performing Organization Address [facility] Centercowa Phone Number [facility] [address] [place] [address] [place] 2D Echo W/O Doppler(No Doppler) (12/17/2017 11:34 AM CDT) Ejection Fraction [facility] Narrative Performed At Transthoracic Echocardiography Report (TTE) [facility] Demographics Patient NameRADHA AGUILAR Date of Study12/17/2017 Male Visit [id number] Unknown Room [id number] Number Date of 1945Referring Orly Stark 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 LV endocardium is adequately vi sualized with IV ultrasound enhancing agent. The le ft ventricle is chamber size (by vol index) is no rmal (male - LVED vol - 34-74ml/m2). Normal LV wa ll thickness. All LV segments are hyperdynamic. Gl obal LV systolic function hyperdynamic . LVEF by Si mpson's method of disk assessment is increased (> 70%) . The LVEF was measured using Parker's bi -plane method of disk . Low (cardiac index <2 L/ min/m2) cardiac output state at rest is noted. Gr fouzia 1 diastolic dysfunction (impaired relaxation an d low-normal LA pressure). Left AtriumLA size is normal (16-34 ml/m2) . Right VentricleThe right ventricular chamber size and systolic fu nction are within normal limits. Right Atrium RA cavity size is normal . Atrial SeptumIV saline contrast injection was negative for a PFO (p atent foramen ovale) at rest and post Valsalva . Aortic Valve Normal AoV structure and function. Mitral Valve Mild mitral annular calcification. No evidence of mitral regurgitation. Tricuspid ValveTV structure is normal. A trace of tricuspid regurgitation. Un able to estimate peak systolic PA pressure; in adequate TR velocity signal. Pulmonic Valve Normal PV structure and function by limited views an d Doppler. AortaAortic root size (SInus of Valsalva diameter) is no rmal . PericardiumNo pericardial effusion is visualized. IVC/SVC/PA/PV/PleuralThe estimated RA pressure by IVC dynamics 0-5mmHg . Th e inferior vena cava size is normal . Th e inferior vena cava is adequately visualized. Chambers/Structures Left Atrium LA Volume: 59.47 ml LA Area: 19.01 cm^2 LA Vol. 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 Funmi Perez [facility] Optical Mechanic Aracely Armijo, Interpreting Yousuf Sandy MD [facility] Physician Procedure Type of Study TTE procedure:ECHO2D [...] CO: 4.01 l/min LVOT CI: 1.83 l/min/m^2 Performing Organization Address City/[facility] Centercode Phone Number [facility] ECHO HEART[facility] MKCKESSON [facility] Troponin I (12/17/2017 8:46 AM CDT) Troponin I 0.03 0.00 - 0.03 ng/mL [facility] Specimen Blood - Arm, Right Narrative Performed At [facility] Troponin I (TnI) levels must be interpreted [...] acidosis, acute neurological disease, and persistent tachyarrhythmia. Performing Organization Address City/State/Zipcode Phone Number [place] [phone] [place] [address] [phone] CENTER Creatine Kinase (CK), Total and MB (12/17/2017 8:46 AM CDT) Total CK 78 29 - 200 U/L [facility] CK-MB 1.9 0.0 - 6.6 ng/mL [facility] MB Relative Index 2.4 % [facility] Specimen Blood - Arm, Right Narrative Performed At CK-MB Reference Range: [facility] <6.7Normal 6.7-10.0Borderline >10.0 Abnormal Performing Organization Address [facility] Centercowa Phone Number [facility] [address] [place] [address] CENTER ECG 12 lead (12/17/2017 5:05 AM CDT) Narrative Performed At Ventricular Rate 67 BPM GE MUSE Atrial Rate 67 BPM P-R Interval 166 ms QRS Duration 94 ms Q-T Interval 428 ms QTC Calculation(Bazett) 452 ms P Huggins 43 degrees R Huggins -18 degrees T Huggins 67 degrees Normal sinus rhythm Nonspecific T [...] 428 ms QTC Calculation(Bazett) 452 ms P Huggins 43 degrees R Huggins -18 degrees T Huggins 67 degrees Normal sinus rhythm Nonspecific T wave abnormality Abnormal ECG When compared with ECG of 17-DEC-2017 05:01, Previous ECG has undetermined rhythm, needs review Confirmed by MD VERONICA, IHAB ([id number]) on 12/17/2017 8:56:54 AM Performing Organization Address City/[facility] Phone Number [employer] MUSE Vitamin B12 and Folate (12/17/2017 3:04 AM CDT) Vitamin B12 <146 (L) 213 - 816 pg/mL [facility] Folate 15.7 >=7.0 ng/mL [facility] Specimen Blood - Arm, Left Performing Organization Address City/[facility] Centercode Phone Number [facility] [address] [place] [address] CENTER TSH/Free T4 If Indicated (12/17/2017 3:04 AM CDT) TSH 10.00 (H) 0.35 - 4.94 uIU/mL [facility] Specimen Blood - Arm, Left Performing Organization Address [facility] Centercode Phone Number [address] [phone] [place] RPR (12/17/2017 3:04 AM CDT) RPR Nonreactive Nonreactive [facility] Specimen Blood - Arm, Left Performing Organization Address [facility] Phone Number [address] [address] [place] T4, free (12/17/2017 3:04 AM CDT) Free T4 0.83 0.70 - 1.48 ng/dL [facility] Specimen Blood - Arm, Left Performing Organization Address [facility] Phone Number [address] [address] [place] Hemoglobin A1c (12/17/2017 3:04 AM CDT) Hemoglobin A1C 12.1 (H) 4.3 - 6.1 % [facility] Specimen Blood - Arm, Left Performing Organization Address [facility] Phone Number [address] [address] [place] Lipid panel (12/17/2017 3:04 AM CDT) Triglycerides 351Comment: Specimen slightly mg/dL [facility] Cholesterol 216Comment: Specimen slightly mg/dL [facility] HDL 35 mg/dL [facility] LDL Calculated 111 mg/dL [facility] Specimen Blood - Arm, Left Narrative Performed At [facility] Triglyceride Reference Range: Low Risk <150 [id number] High Risk 200-499 Very High Risk>=500 Cholesterol Reference Range: Low Risk <200 [id number] High Risk>240 HDL Cholesterol Reference Range: Low Risk >=60 High Risk <40 LDL Cholesterol Reference Range: Optimal<100 Near [id number] [id number] [id number] Very High >=190 Performing Organization Address City/State/Zipcode Phone Number [facility] [employer] [facility] [address] [place] [address] CENTER after 04/29/2017 Insurance Payer Benefit Plan / Group Subscriber ID Type Phone Address MEDICARE MEDICARE A B xxxxxxxxxx Medicare MCR SUPPLEMENT/INDIVIDUAL AARP/[facility] xxxxxxxxxxx [employer] Advance Directives For more information, please contact:[facility] ActionFlowSaint Alphons[facility] [address] [phone] Code Status Date Activated Date Inactivated Comments Full Code 12/17/2017 2:21 AM 12/18/2017 6:35 PM This code status was determined by: Patient
--- OUTSIDE RECORDS SUMMARY | 2018-04-30 09:42 | XMS REPORT ---
:1945 [facility] Address [facility] Zachary Rosa [address] [place] [address] Care Team Providers Name Role Phone LUCAS [...] 315 mg/dL 70-110 Notified RED JAQUEZ/TESTED AT [facility] wrjp=[id number]) [address] [place] [address] POCT-GLUCOSE [id number] 08:26:00 Test Item Value Reference Range Comments POC-GLUCOSE METER (BEAKER) 304 mg/dL 70-110 Notified RED JAQUEZ/TESTED AT [facility] (test vimr=7569) [address] [place] [address] [id number] 06:46:00 Test Item Value Reference Range Comments MAGNESIUM (BEAKER) (test 2.2 mg/dL 1.6-2.6 Specimen slightly hemolyzed qftx=038) BASIC METABOLIC [id number] 06:46:00 Test Item Value Reference Range Comments SODIUM (BEAKER) (test 133 meq/L 136-145 ntzv=784) POTASSIUM (BEAKER) (test 4.0 meq/L 3.5-5.1 Specimen slightly uvse=847) hemolyzed CHLORIDE (BEAKER) (test 101 meq/L 98-107 taef=047) CO2 (BEAKER) (test 24 meq/L 22-29 yfjn=376) BLOOD UREA NITROGEN 17 mg/dL 7-21 (BEAKER) (test mgdf=410) CREATININE (BEAKER) (test 1.19 mg/dL 0.57-1.25 Specimen slightly ryhp=974) hemolyzed GLUCOSE RANDOM (BEAKER) 315 mg/dL 70-105 (test ewwy=812) CALCIUM (BEAKER) (test 9.5 mg/dL 8.4-10.2 grxy=715) EGFR (BEAKER) (test 60 mL/min/1.73 sq m ESTIMATED GFR IS NOT ocjg=8342) ACCURATE CREATININE CLEARANCE IN PREDICTING GLOMERULAR FILTRATION RATE. ESTIMATED GFR IS NOT APPLICABLE FOR DIALYSIS PATIENTS. CBC W/PLT COUNT & AUTO [id number] 06:43:00 Test Item Value Reference Range Comments WHITE BLOOD CELL COUNT (BEAKER) (test pobl=581) 6.9 K/ L 3.5-10.5 RED BLOOD CELL COUNT (BEAKER) (test swmo=778) 5.14 M/ L 4.63-6.08 HEMOGLOBIN (BEAKER) (test eeln=549) 15.6 GM/DL 13.7-17.5 HEMATOCRIT (BEAKER) (test vona=339) 46.3 % 40.1-51.0 MEAN CORPUSCULAR VOLUME (BEAKER) (test zwng=913) 90.1 fL 79.0-92.2 MEAN CORPUSCULAR HEMOGLOBIN (BEAKER) (test 30.4 pg 25.7-32.2 bdry=889) MEAN CORPUSCULAR HEMOGLOBIN CONC (BEAKER) (test 33.7 GM/DL 32.3-36.5 amii=768) RED CELL DISTRIBUTION WIDTH (BEAKER) (test 12.5 % 11.6-14.4 llph=892) PLATELET COUNT (BEAKER) (test fvtj=059) 172 K/CU MM 150-450 MEAN PLATELET VOLUME (BEAKER) (test jnoc=709) 11.2 fL 9.4-12.4 NUCLEATED RED BLOOD CELLS (BEAKER) (test 0 /100 WBC 0-0 tgvo=584) NEUTROPHILS RELATIVE PERCENT (BEAKER) (test 60 % gwxa=070) LYMPHOCYTES RELATIVE PERCENT (BEAKER) (test 26 % kghy=665) MONOCYTES RELATIVE PERCENT (BEAKER) (test 10 % yzgi=831) EOSINOPHILS RELATIVE PERCENT (BEAKER) (test 3 % bqjt=781) BASOPHILS RELATIVE PERCENT (BEAKER) (test 1 % rhmb=419) NEUTROPHILS ABSOLUTE COUNT (BEAKER) (test 4.11 K/ L 1.78-5.38 jnze=620) LYMPHOCYTES ABSOLUTE COUNT (BEAKER) (test 1.79 K/ L 1.32-3.57 fzrj=929) MONOCYTES ABSOLUTE COUNT (BEAKER) (test 0.66 K/ L 0.30-0.82 krdk=658) EOSINOPHILS ABSOLUTE COUNT (BEAKER) (test 0.22 K/ L 0.04-0.54 vqew=404) BASOPHILS ABSOLUTE COUNT (BEAKER) (test 0.04 K/ L 0.01-0.08 cyvw=967) IMMATURE GRANULOCYTES-RELATIVE PERCENT (BEAKER) 1 % 0-1 (test wnna=7607) [id number] 02:37:00 Test Item Value Reference Range Comments RPR SCREEN (BEAKER) (test adyv=631) Nonreactive Nonreactive POCT-GLUCOSE [id number] 00:03:00 Test Item Value Reference Range Comments POC-GLUCOSE METER (BEAKER) 338 mg/dL 70-110 Notified RED JAQUEZ/TESTED AT [facility] (test dqfz=2528) [address] [facility] [address] MR, MRA, NECK, WITHOUT IV [id number] 21:41:00Reason for exam:-> strokeFINAL REPORT MRA Head CLINICAL HISTORY: Stroke TECHNIQUE: MRA of the head utilizing 3-D ezoi-ie-wrdwch technique, with 3-D reconstructions. COMPARISON: None FINDINGS: [...] Gomes Verified Date/Time: 12/17/2017 21:41:27 Reading Location: [facility] [address] Radiology Reading Room MR, MRA, BRAIN, WITHOUT [id number] 21:41: 00Reason for exam:->strokeFINAL REPORT MRA Head [...] of the neck utilizing 2-D and 3-D hxyv-tm-ssdmva technique, with 3-D reconstructions. COMPARISON: None IMPRESSION:There is 66% stenosis of the proximal left internal carotid artery by NASCET criteria. There is 20%stenosis of the proximal right internal carotid artery by NASCET criteria. There is severe attenuation of the left vertebral artery. There is preserved antegrade flow in the right vertebral artery. Signed: Chaparro Gomes Verified Date/Time: 2017 21:41:27 Reading Location: [facility] [address] Radiology Reading Room MR, BRAIN, WITHOUT [id number] 21:30:00Reason for exam:->Stroke evaluationFINAL REPORT MRI Brain [...] Verified Date/Time: 12/17/2017 21:30: 55 Reading Location: [facility] [address] Radiology Reading Room POCT-GLUCOSE [id number] 18:05:00 Test Item Value Reference Range Comments POC-GLUCOSE METER (BEAKER) 270 mg/dL 70-110 TESTED AT [address] (test stck=7188) [facility] [address] VITAMIN [id number] 17:03:00 Test Item Value Reference Range Comments VITAMIN B12 (BEAKER) (test chne=074) < pg/mL 213-816 [id number] 15:45:00 Test Item Value Reference Range Comments HOMOCYSTEINE (BEAKER) (test nydb=358) 16.8 umol/L 5.1-15.4 POCT-GLUCOSE [id number] 12:49:00 Test Item Value Reference Range Comments POC-GLUCOSE METER (BEAKER) 308 mg/dL 70-110 Notified RED JAQUEZ/TESTED AT [facility] (test iarq=7968) [address] [place] [address] CREATINE KINASE (CK), TOTAL AND [id number] 09:37:00 Test Item Value Reference Range Comments CREATINE KINASE TOTAL (BEAKER) (test wnyh=787) 78 U/L 29-200 CREATINE KINASE-MB (BEAKER) (test auap=894) 1.9 ng/mL 0.0-6.6 CREATINE KINASE-MB INDEX (BEAKER) (test etgs=480) 2.4 % CK-MB Reference Range:<6.7 Normal6.7-10.0 Borderline>10.0 AbnormalTROPONIN [id number] 09:37:00 Test Item Value Reference Range Comments TROPONIN I (BEAKER) (test nrta=416) 0.03 ng/mL 0.00-0.03 Troponin I (TnI) levels [...] acidosis, acute neurological disease, and persistent tachyarrhythmia.HEMOGLOBIN [id number] 09:27:00 Test Item Value Reference Range Comments HEMOGLOBIN A1C (BEAKER) (test ncyb=805) 12.1 % 4.3-6.1 POCT-GLUCOSE [id number] 08:53:00 Test Item Value Reference Range Comments POC-GLUCOSE METER (BEAKER) 289 mg/dL 70-110 TESTED AT [facility] [address] [facility] (test tgad=7487) [facility] [address] T4, [id number] 05:26:00 Test Item Value Reference Range Comments FREE T4 (BEAKER) (test rana=581) 0.83 ng/dL 0.70-1.48 TSH/FREE T4 IF [id number] 04:27:00 Test Item Value Reference Range Comments THYROID STIMULATING HORMONE (BEAKER) (test 10.00 uIU/mL 0.35-4.94 wxne=819) VITAMIN B12 AND [id number] 04:27:00 Test Item Value Reference Range Comments VITAMIN B12 (BEAKER) (test mbyj=306) < pg/mL 213-816 FOLATE (BEAKER) (test vcep=305) 15.7 ng/mL >=7.0 [id number] 03:52:00 Test Item Value Reference Range Comments MAGNESIUM (BEAKER) (test 2.2 mg/dL 1.6-2.6 Specimen slightly hemolyzed iirz=878) BASIC METABOLIC [id number] 03:52:00 Test Item Value Reference Range Comments SODIUM (BEAKER) (test 133 meq/L 136-145 dgwz=533) POTASSIUM (BEAKER) (test 3.8 meq/L 3.5-5.1 Specimen slightly eugn=484) hemolyzed CHLORIDE (BEAKER) (test 100 meq/L 98-107 qjde=956) CO2 (BEAKER) (test 20 meq/L 22-29 qknk=488) BLOOD UREA NITROGEN 17 mg/dL 7-21 (BEAKER) (test qmkv=756) CREATININE (BEAKER) (test 1.11 mg/dL 0.57-1.25 Specimen slightly rinc=486) hemolyzed GLUCOSE RANDOM (BEAKER) 340 mg/dL 70-105 (test pssw=159) CALCIUM (BEAKER) (test 9.4 mg/dL 8.4-10.2 nsjo=810) EGFR (BEAKER) (test 65 mL/min/1.73 sq m ESTIMATED GFR IS NOT huat=5745) ACCURATE CREATININE CLEARANCE IN PREDICTING GLOMERULAR FILTRATION RATE. ESTIMATED GFR IS NOT APPLICABLE FOR DIALYSIS PATIENTS. LIPID [id number] 03:52:00 Test Item Value Reference Range Comments TRIGLYCERIDES (BEAKER) (test 351 mg/dL Specimen slightly hemolyzed fntc=092) CHOLESTEROL (BEAKER) (test 216 mg/dL Specimen slightly hemolyzed dcgs=699) HDL CHOLESTEROL (BEAKER) (test 35 mg/dL vxhy=967) LDL CHOLESTEROL CALCULATED 111 mg/dL (BEAKER) (test kemp=333) Triglyceride Reference Range: Low Risk <150 Borderline 150- 199 High Risk 200-499 Very High Risk >=500Cholesterol Reference Range: Low Risk <200 Borderline 200-239 High Risk > 240HDL Cholesterol Reference Range: Low Risk >=60 High Risk <40LDL Cholesterol Reference Range: Optimal <100 Near Optimal 100-129 Borderline 130-159 High 160-189 Very High >=190CBC W/PLT COUNT & AUTO [id number] 03:29:00 Test Item Value Reference Range Comments WHITE BLOOD CELL COUNT (BEAKER) (test ofaa=564) 7.2 K/ L 3.5-10.5 RED BLOOD CELL COUNT (BEAKER) (test frrf=066) 4.80 M/ L 4.63-6.08 HEMOGLOBIN (BEAKER) (test oozm=602) 14.5 GM/DL 13.7-17.5 HEMATOCRIT (BEAKER) (test soww=869) 43.2 % 40.1-51.0 MEAN CORPUSCULAR VOLUME (BEAKER) (test dipj=331) 90.0 fL 79.0-92.2 MEAN CORPUSCULAR HEMOGLOBIN (BEAKER) (test 30.2 pg 25.7-32.2 pskp=399) MEAN CORPUSCULAR HEMOGLOBIN CONC (BEAKER) (test 33.6 GM/DL 32.3-36.5 ebce=552) RED CELL DISTRIBUTION WIDTH (BEAKER) (test 12.4 % 11.6-14.4 mgoe=323) PLATELET COUNT (BEAKER) (test umsf=185) 176 K/CU MM 150-450 MEAN PLATELET VOLUME (BEAKER) (test xrun=074) 10.9 fL 9.4-12.4 NUCLEATED RED BLOOD CELLS (BEAKER) (test 0 /100 WBC 0-0 azlh=389) NEUTROPHILS RELATIVE PERCENT (BEAKER) (test 63 % nahp=508) LYMPHOCYTES RELATIVE PERCENT (BEAKER) (test 23 % zpbr=044) MONOCYTES RELATIVE PERCENT (BEAKER) (test 9 % xxul=273) EOSINOPHILS RELATIVE PERCENT (BEAKER) (test 3 % nzpo=315) BASOPHILS RELATIVE PERCENT (BEAKER) (test 1 % xlha=162) NEUTROPHILS ABSOLUTE COUNT (BEAKER) (test 4.53 K/ L 1.78-5.38 fnbd=062) LYMPHOCYTES ABSOLUTE COUNT (BEAKER) (test 1.68 K/ L 1.32-3.57 uvpb=135) MONOCYTES ABSOLUTE COUNT (BEAKER) (test 0.64 K/ L 0.30-0.82 hmtu=097) EOSINOPHILS ABSOLUTE COUNT (BEAKER) (test 0.24 K/ L 0.04-0.54 uayr=205) BASOPHILS ABSOLUTE COUNT (BEAKER) (test 0.04 K/ L 0.01-0.08 nyyq=244) IMMATURE GRANULOCYTES-RELATIVE PERCENT (BEAKER) 1 % 0-1 (test nhca=5384)
[2018-04-30] MEDS ORDERED: NA CHLORIDE 0.9% 500 ML ONE (10:23)
[2018-04-30] MEDS ORDERED: AZITHROMYCIN 250 MG TAB ONE (10:23)
[2018-04-30 10:40] LABS: Absolute Lymphocytes (CBC) 1.8 K/uL (0.7-4.9); Absolute Monocytes 0.8 K/uL (0.1-1.3); Absolute Neutrophil 5.1 K/uL (1.8-8.0); Basophils % 0.7 % (0-1.3); Eosinophils % 1.9 % (0-4.4); Hematocrit 44.4 % (39.6-49.0); Lymphocytes % 22.6 % (15.3-44.8); MCH 29.7 pg (27.0-35.0); MCV 86.3 fL (80-100); MPV 8.5 fL (7.6-11.3); Monocytes % 9.8 % (3.3-12.3); RBC Red Blood Cell Count 5.14 M/uL (4.33-5.43)
--- NOTE | 2018-04-30 10:48 | RAD REPORT ---
EXAM DESCRIPTION: RAD - Chest Single View - 04/30/2018 10:40 am CLINICAL HISTORY: COUGH Chest pain. COMPARISON: Chest Single View dated 01/17/2018; Chest Single View dated 12/16/2017; Chest Pa And Lat ( 2 Views) dated 10/08/2017; Chest Pa And Lat (2 Views) dated 10/21/2016 FINDINGS: Portable technique limits examination quality. The lungs are grossly clear. The heart is normal in size. No displaced fractures. IMPRESSION: No acute intrathoracic process suspected.
[2018-04-30] MEDS ORDERED: CEFTRIAXONE/SWI 1gm 1 GM/10 ML SYR ONE (10:56)
[2018-04-30 11:04] LABS: Albumin 3.8 g/dL (3.4-5.0); Bilirubin Direct 0.2 mg/dL (0-0.2); Bilirubin Total 0.6 mg/dL (0.2-1.0); Magnesium 2.3 mg/dL (1.8-2.4); Potassium 4.3 mmol/L (3.5-5.1); Protein, Total 7.2 g/dL (6.4-8.2); Troponin (Emerg Dept Use Only) 0.1 ng/mL (0.0-0.045)
--- NOTE | 2018-04-30 11:20 | ER ---
Nurse's Notes [facility] Name: Otto Montiel Age: 73 yrs Sex: Male : 1945 Arrival Date: 04/30/2018 Time: 09:43 Bed 20 Private MD: Johnie Gray F Diagnosis: Weakness;Type 1 diabetes mellitus;Malaise and fatigue;Cough Presentation: 04/30 09:55 Presenting complaint: Headache, sore throat, nonproductive cough, and malaise x 3 days. hb Transition of care: patient was not received from another setting of care. Onset of symptoms was April 28, 2018. Risk Assessment: Do you want to hurt yourself or someone else? Patient reports no desire to harm self or others. Care prior to arrival: None. 09:55 Method Of Arrival: Ambulatory hb 09:55 Acuity: DARIUS 3 hb 10:10 Initial Sepsis Screen: Does the patient meet any 2 criteria? No. Patient's initial em sepsis screen is negative. Does the patient have a suspected source of infection? Yes: Productive cough/pneumonia. Triage Assessment: 10:36 Pain: Pain. em Historical: - Allergies: 09:58 Actifed Cold-Allergy; hb 09:58 Celebrex; hb 09:58 Levaquin; hb 09:58 Losartan; hb 09:58 metformin; hb 09:58 steroids; hb - Home Meds: 09:58 amlodipine 10 mg tab 1 tab once daily [Active]; atorvastatin 80 mg Oral tab 1 tab once hb daily [Active]; glipizide 2.5 mg Oral tr24 [Active]; lantus solo star 40 Units once daily in the AM [Active]; levothyroxine 200 mcg tab 1 tab once daily [Active]; - PMHx: 09:58 CVA; Diabetes - IDDM; Hypertension; Hypothyroidism; legally blind; macular degeneration;hb - PSHx: 09:58 Ring finger amputation; L arm; L knee; hb - Immunization history:: Adult Immunizations up to date. - Social history:: Smoking status: Patient/guardian denies using tobacco. - Ebola Screening: : No symptoms or risks identified at this time. Screenin:58 Abuse screen: Denies threats or abuse. Denies injuries from another. Nutritional hb screening: No deficits noted. Tuberculosis screening: No symptoms or risk factors identified. Fall Risk Total Messer Fall Scale indicates Low Risk Score (25-44 pts). Fall prevention measures have been instituted. Side Rails Up X 2 Frequent Obs/Assesments occuring Family Present and informed to notify staff if they need to leave bedside As available Patient and Family Educated on Fall Prevention Program and strategies. Assessment: 10:10 General: Appears in no apparent distress. comfortable, Behavior is calm, cooperative, em appropriate for age, Denies fever. Pain: Complains of pain in forehead and throat Pain currently is 0 out of 10 on a pain scale. at worst was 8 out of 10 on a pain scale. Pain began 2-3 days ago. Neuro: Level of Consciousness is awake, alert, obeys commands, Oriented to person, place, time, situation, Reports headache weakness Denies blurred vision dizziness. Cardiovascular: Denies chest pain, shortness of breath, Heart tones S1 S2 present Capillary refill < 3 seconds Patient's skin is warm and dry. Rhythm is sinus rhythm. Respiratory: Airway is patent Respiratory effort is even, unlabored, Respiratory pattern is regular, symmetrical. GI: Abdomen is flat, Patient currently denies diarrhea, nausea, vomiting. : Urine is clear. EENT: Oral mucosa is moist. Throat is clear is pink. Derm: Skin is intact, Skin is pink, warm \T\ dry. Musculoskeletal: Range of motion: intact in all extremities. 10:15 Reassessment: I agree with previous assessment. hb 11:00 Reassessment: Patient appears in no apparent distress at this time. Patient and/or em family updated on plan of care and expected duration. Pain level reassessed. Patient is alert, oriented x 3, equal unlabored respirations, skin warm/dry/pink. Patient denies pain at this time. 12:00 Reassessment: Patient appears in no apparent distress at this time. Patient and/or em family updated on plan of care and expected duration. Pain level reassessed. Patient is alert, oriented x 3, equal unlabored respirations, skin warm/dry/pink. Patient denies pain at this time. Patient states symptoms have improved. 12:48 Reassessment: Patient appears in no apparent distress at this time. Patient and/or em family updated on plan of care and expected duration. Pain level reassessed. Patient is alert, oriented x 3, equal unlabored respirations, skin warm/dry/pink. Patient denies pain at this time. Patient states feeling better. Patient states symptoms have improved. Vital Signs: 09:56 BP 142 / 72; Pulse 58; Resp 16; Temp 99; Pulse Ox 96% on R/A; Weight 84.82 kg; Height 5 em ft. 8 in. (172.72 cm); Pain 8/10; 11:00 BP 153 / 73; Pulse 54; Resp 19; Pulse Ox 98% on R/A; Pain 0/10; em 12:10 BP 148 / 79; Pulse 71; Resp 16; Pulse Ox 100% on R/A; Pain 0/10; em 13:05 BP 143 / 65; Pulse 58; Resp 16; Temp 98.1(O); Pulse Ox 99% on R/A; Pain 0/10; em 09:56 Body Mass Index 28.43 (84.82 kg, 172.72 cm) em ED Course: 09:43 Patient arrived in ED. sb2 09:43 Johnie Gray MD is Private Physician. sb2 09:51 Austyn Watson LVN is Primary Nurse. em 09:52 Chucky Astorga MD is Attending Physician. bj 09:56 Triage completed. hb 09:57 Arm band placed on right wrist. hb 10:10 Patient has correct armband on for positive identification. Placed in gown. Bed in low em position. Call light in reach. Side rails up X2. Adult w/ patient. 10:22 EKG done, by ED staff, reviewed by Chucky Astorga MD. dh3 10:30 Inserted saline lock: 20 gauge in right antecubital area, using aseptic technique. em Blood collected. 10:30 Initial lab(s) drawn, by or, sent to lab. First set of blood cultures drawn by me. em 11:17 Johnie Gray MD is Hospitalizing Provider. bj 12:58 Johnie Gray MD is Hospitalizing Provider. bj 13:34 Patient admitted, IV remains in place. em Administered Medications: 10:35 Drug: NS 0.9% 500 ml Route: IV; Rate: bolus; Site: right antecubital; em 11:46 Follow up: IV Status: Completed infusion; IV Intake: 500ml em 10:50 Drug: Zithromax 500 mg Route: PO; em 11:00 Follow up: Response: No adverse reaction em 10:55 Drug: Rocephin - (cefTRIAXone) 1 grams Route: IVPB; Infused Over: 30 mins; Site: right hb antecubital; 11:30 Follow up: Response: No adverse reaction; IV Status: Completed infusion; IV Intake: 10mlem 11:28 Drug: Aspirin 162 mg Route: PO; em 11:45 Follow up: Response: No adverse reaction em 11:28 Drug: Lovenox 1 mg/kg Route: Sub-Q; Site: right lower abdomen; em 11:45 Follow up: Response: No adverse reaction em Intake: 11:30 IV: 10ml; Total: 10ml. em 11:46 IV: 500ml; Total: 510ml. em Outcome: 11:18 Decision to Hospitalize by Provider. bj 12:59 Decision to Hospitalize by Provider. bj 13:34 Admitted to Tele accompanied by tech, family with patient, via wheelchair, room 217. em 13:34 Condition: good 13:34 Instructed on the need for admit, Demonstrated understanding of instructions. 14:09 Patient left the ED. em Signatures: Chucky Astorga MD MD cha Munoz, Edgar, MOTOR PATROL OPERATOR MOTOR PATROL OPERATOR em Marli Miller, RED RN Mary Fulton 3 Jen Power sb2 Corrections: (The following items were deleted from the chart) 11:19 09:56 BP 142 / 72; Pulse 58bpm; Resp 16bpm; Pulse Ox 96% RA; Temp 99F; Pain 8/10; hb em
[2018-04-30] MEDS ORDERED: ACETAMINOPHEN 500 MG TAB PO PRN (11:22)
[2018-04-30] MEDS ORDERED: ONDANSETRON 4 MG/2 ML VIAL IV PRN (11:22)
--- NOTE | 2018-04-30 11:22 | EDPHYS ---
Physician Documentation [facility] Name: Otto Montiel Age: 73 yrs Sex: Male : 1945 Arrival Date: 04/30/2018 Time: 09:43 Bed 20 Private MD: Johnie Gray F ED Physician Chucky Astorga HPI: 04/30 10:10 This 73 yrs old Male presents to ER via Ambulatory with complaints of bj Headache, Sore Throat, Non-Productive Cough. 10:10 The patient complains of pain to the forehead, left frontal area and right frontal bj area. The patient describes the headache as aching. Historical: - Allergies: 09:58 Actifed Cold-Allergy; hb 09:58 Celebrex; hb 09:58 Levaquin; hb 09:58 Losartan; hb 09:58 metformin; hb 09:58 steroids; hb - Home Meds: 09:58 amlodipine 10 mg tab 1 tab once daily [Active]; atorvastatin 80 mg Oral tab 1 tab once hb daily [Active]; glipizide 2.5 mg Oral tr24 [Active]; lantus solo star 40 Units once daily in the AM [Active]; levothyroxine 200 mcg tab 1 tab once daily [Active]; - PMHx: 09:58 CVA; Diabetes - IDDM; Hypertension; Hypothyroidism; legally blind; macular degeneration;hb - PSHx: 09:58 Ring finger amputation; L arm; L knee; hb - Immunization history:: Adult Immunizations up to date. - Social history:: Smoking status: Patient/guardian denies using tobacco. - Ebola Screening: : No symptoms or risks identified at this time. ROS: 10:11 Constitutional: Negative for fever, chills, and weight loss, Eyes: Negative for injury, bj pain, redness, and discharge, Neck: Negative for injury, pain, and swelling, Cardiovascular: Negative for chest pain, palpitations, and edema, Respiratory: Negative for shortness of breath, cough, wheezing, and pleuritic chest pain, Abdomen/GI: Negative for abdominal pain, nausea, vomiting, diarrhea, and constipation, Back: Negative for injury and pain, : Negative for injury, bleeding, discharge, and swelling, MS/Extremity: Negative for injury and deformity, Skin: Negative for injury, rash, and discoloration, Neuro: Negative for headache, weakness, numbness, tingling, and seizure, Psych: Negative for depression, anxiety, suicide ideation, homicidal ideation, and hallucinations, Allergy/Immunology: Negative for hives, rash, and allergies, Endocrine: Negative for neck swelling, polydipsia, polyuria, polyphagia, and marked weight changes, Hematologic/Lymphatic: Negative for swollen nodes, abnormal bleeding, and unusual bruising. 10:11 ENT: Positive for rhinorrhea, sinus congestion, sore throat. Exam: 10:11 Constitutional: This is a well developed, well nourished patient who is awake, alert, bj and in no acute distress. Head/Face: Normocephalic, atraumatic. Eyes: Pupils equal round and reactive to light, extra-ocular motions intact. Lids and lashes normal. Conjunctiva and sclera are non-icteric and not injected. Cornea within normal limits. Periorbital areas with no swelling, redness, or edema. Neck: Trachea midline, no thyromegaly or masses palpated, and no cervical lymphadenopathy. Supple, full range of motion without nuchal rigidity, or vertebral point tenderness. No Meningismus. Chest/axilla: Normal chest wall appearance and motion. Nontender with no deformity. No lesions are appreciated. Cardiovascular: Regular rate and rhythm with a normal S1 and S2. No gallops, murmurs, or rubs. Normal PMI, no JVD. No pulse deficits. Respiratory: Lungs have equal breath sounds bilaterally, clear to auscultation and percussion. No rales, rhonchi or wheezes noted. No increased work of breathing, no retractions or nasal flaring. Abdomen/GI: Soft, non-tender, with normal bowel sounds. No distension or tympany. No guarding or rebound. No evidence of tenderness throughout. Back: No spinal tenderness. No costovertebral tenderness. Full range of motion. Male : Normal genitalia with no discharge or lesions. Skin: Warm, dry with normal turgor. Normal color with no rashes, no lesions, and no evidence of cellulitis. MS/ Extremity: Pulses equal, no cyanosis. Neurovascular intact. Full, normal range of motion. Neuro: Awake and alert, GCS 15, oriented to person, place, time, and situation. Cranial nerves II-XII grossly intact. Motor strength 5/5 in all extremities. Sensory grossly intact. Cerebellar exam normal. Normal gait. Psych: Awake, alert, with orientation to person, place and time. Behavior, mood, and affect are within normal limits. 10:11 ENT: Posterior pharynx: Airway: normal, Tonsils: are normal in appearance, Uvula: normal, midline, swelling, is not appreciated, erythema, that is mild, exudate, is not appreciated. Vital Signs: 09:56 BP 142 / 72; Pulse 58; Resp 16; Temp 99; Pulse Ox 96% on R/A; Weight 84.82 kg; Height 5 em ft. 8 in. (172.72 cm); Pain 8/10; 11:00 BP 153 / 73; Pulse 54; Resp 19; Pulse Ox 98% on R/A; Pain 0/10; em 12:10 BP 148 / 79; Pulse 71; Resp 16; Pulse Ox 100% on R/A; Pain 0/10; em 13:05 BP 143 / 65; Pulse 58; Resp 16; Temp 98.1(O); Pulse Ox 99% on R/A; Pain 0/10; em 09:56 Body Mass Index 28.43 (84.82 kg, 172.72 cm) em MDM: 09:52 Patient medically screened. [facility] 10:12 Data reviewed: vital signs, nurses notes, lab test result(s), EKG, radiologic studies, bj plain films. 04/30 10:09 Order name: Basic Metabolic Panel [facility] 04/30 10:09 Order name: CBC with Diff [facility] 04/30 10:09 Order name: LFT's [facility] 04/30 10:09 Order name: Magnesium [facility] 04/30 10:09 Order name: NT PRO-BNP [facility] 04/30 10:09 Order name: Troponin (emerg Dept Use Only) [facility] 04/30 10:09 Order name: Strep [facility] 04/30 10:09 Order name: Flu [facility] 04/30 10:09 Order name: Urine Culture [facility] 04/30 10:09 Order name: Blood Culture Adult (2) [facility] 04/30 10:42 Order name: CBC with Automated Diff; Complete Time: 11:00 EDMS 04/30 10:50 Order name: Group A Streptococcus Rapid Sc; Complete Time: 11:00 EDRI 04/30 11:02 Order name: Influenza Screen (A ; Complete Time: 11:06 EDMS 12/01 11:04 Order name: Basic Metabolic Panel; Complete Time: 11:06 [facility] 04/30 10:09 Order name: XRAY Chest (1 view) [facility] 04/30 10:09 Order name: EKG; Complete Time: 10:10 [facility] 04/30 10:09 Order name: Cardiac monitoring; Complete Time: 10:22 [facility] 04/30 10:48 Order name: RAD; Complete Time: 11:00 [facility] 04/30 11:04 Order name: Liver (Hepatic) Function; Complete Time: 11:06 [facility] 04/30 11:04 Order name: Troponin (Emerg Dept Use Only); Complete Time: 11:06 [facility] 04/30 11:04 Order name: NT PRO-BNP; Complete Time: 11:06 [facility] 04/30 11:04 Order name: Magnesium; Complete Time: 11:06 [facility] 04/30 11:14 Order name: TSH [facility] 04/30 12:15 Order name: Thyroid Stimulating Hormone [facility] 04/30 12:34 Order name: Urine Dipstick--Ancillary (enter results) 04/30 10:09 Order name: EKG - Nurse/Tech; Complete Time: 10:22 [facility] 04/30 10:09 Order name: IV Saline Lock; Complete Time: 10:35 [facility] 04/30 10:09 Order name: Labs collected and sent; Complete Time: 10:36 [facility] 04/30 10:09 Order name: O2 Per Protocol; Complete Time: 10:35 [facility] 04/30 10:09 Order name: O2 Sat Monitoring; Complete Time: 10:35 [facility] 04/30 10:09 Order name: Urine Dipstick-Ancillary (obtain specimen); Complete Time: 11:34 [facility] Administered Medications: 10:35 Drug: NS 0.9% 500 ml Route: IV; Rate: bolus; Site: right antecubital; em 11:46 Follow up: IV Status: Completed infusion; IV Intake: 500ml em 10:50 Drug: Zithromax 500 mg Route: PO; em 11:00 Follow up: Response: No adverse reaction em 10:55 Drug: Rocephin - (cefTRIAXone) 1 grams Route: IVPB; Infused Over: 30 mins; Site: right hb antecubital; 11:30 Follow up: Response: No adverse reaction; IV Status: Completed infusion; IV Intake: 10mlem 11:28 Drug: Aspirin 162 mg Route: PO; em 11:45 Follow up: Response: No adverse reaction em 11:28 Drug: Lovenox 1 mg/kg Route: Sub-Q; Site: right lower abdomen; em 11:45 Follow up: Response: No adverse reaction em Disposition: 04/30/18 12:59 Hospitalization ordered by Johnie Gray for Observation. Preliminary diagnosis are Weakness, Type 1 diabetes mellitus, Malaise and fatigue, Cough. - Bed requested for Telemetry/MedSurg (observation). - Status is Observation. em - Condition is Fair. - Problem is new. - Symptoms have improved. UTI on Admission? No Signatures: Dispatcher [employer] EDMS Cuca Corrales Corey, MD MD cha Munoz, Edgar, STEM SETTER STEM SETTER em Marli Miller, RN RN Corrections: (The following items were deleted from the chart) 12:47 11:18 Hospitalization Ordered by Johnie Gray MD for Observation. Preliminary bd diagnosis is Malaise and fatigue; Weakness - elevated troponin; Type 1 diabetes mellitus; Cough. Bed requested for Telemetry/MedSurg (observation). Status is Observation. Condition is Fair. Problem is new. Symptoms have improved. UTI on Admission? No. bj 12:58 12:47 04/30/2018 11:18 Hospitalization Ordered by Johnie Gray MD for Observation. bj Preliminary diagnosis is Malaise and fatigue; Weakness - elevated troponin; Type 1 diabetes mellitus; Cough. Bed requested for Telemetry/MedSurg (observation). Status is Observation. Condition is Fair. Problem is new. Symptoms have improved. UTI on Admission? No. bd 13:04 12:59 Hospitalization Ordered by Johnie Gray MD for Observation. Preliminary em diagnosis is Weakness; Type 1 diabetes mellitus; Malaise and fatigue; Cough. Bed requested for Telemetry/MedSurg (observation). Status is Observation. Condition is Fair. Problem is new. Symptoms have improved. UTI on Admission? No. jb 14:09 13:04 04/30/2018 12:59 Hospitalization Ordered by Johnie Gray MD for Observation. em Preliminary diagnosis is Weakness; Type 1 diabetes mellitus; Malaise and fatigue; Cough. Bed requested for Telemetry/MedSurg (observation). Status is Observation. Condition is Fair. Problem is new. Symptoms have improved. UTI on Admission? No. em
[2018-04-30] MEDS ORDERED: D50W 25 GM/50 ML SYRINGE IV PRN ×2 (11:24→16:10)
[2018-04-30] MEDS ORDERED: GLUCAGON 1 MG/VIAL IM PRN ×2 (11:24→16:10)
[2018-04-30] MEDS ORDERED: ASPIRIN 81 MG CHEWABLE TABLET ONE (11:29)
[2018-04-30] MEDS ORDERED: ENOXAPARIN 80 MG/0.8 ML SQ ONE (11:30)
[2018-04-30] MEDS ORDERED: INSULIN -REGULAR HUMAN 50 UNIT/0.5 ML ML SQ SCH (11:30)
[2018-04-30 14:05] LABS: Urine Blood NEGATIVE (NEG); Urine Glucose NEGATIVE (NEG); Urine Protein NEGATIVE (NEG); Urine Specific Gravity 1.015 (1.005-1.030); Urine pH 7.5 (5.0-7.0)
[2018-04-30 15:46] VITALS: BMI 28.5
[2018-04-30 15:58] VITALS: O2SAT 96
[2018-04-30] MEDS: INSULIN -REGULAR HUMAN 50 UNIT/0.5 ML ML SQ SCH ×2 (16:30→20:59)
[2018-04-30] MEDS: ENOXAPARIN 80 MG/0.8 ML SQ SCH (20:58)
[2018-04-30] MEDS: FAMOTIDINE 20 MG/2 ML VIAL IV SCH (20:59)
[2018-04-30 21:33] LABS: Urine Appearance CLEAR; Urine Bilirubin NEGATIVE (NEG); Urine Blood NEGATIVE (NEG); Urine Color YELLOW; Urine Glucose NEGATIVE (NEG); Urine Protein NEGATIVE (NEG); Urine pH 6.5 (5.0-7.0)
[2018-04-30 21:43] LABS: Urine Microscopic Reflex NO UMIC
--- NOTE | 2018-05-01 01:23 | CON ---
History Of Present Illness: Mr. Callaway came to the hospital with vague complaints for about 3 days. He has been feeling more weak, having malaise. He has headache and sore throat. Denied having chest pain or shortness of breath to me. About 5 months ago, he had a stroke, and since then he has been fairly debilitated. He has had no significant aphasia or weakness on the right side, frequent headaches. The patient has underlying hypertension, hypothyroidism, and diabetes. Medications: He takes amlodipine, aspirin, lisinopril, levothyroxine, and insulin. Allergies: HE IS ALLERGIC TO ANTIHISTAMINES. Social History: He uses no tobacco. Rare alcohol. No illegal drugs. Physical Examination: General: He is 5 feet 9 inches and 193 pounds. He is alert, oriented, seems somewhat confused. Vital Signs: Blood pressure 171/79, heart rate 60, temperature 97. Lungs: Clear. Heart: Unremarkable. Imaging: Electrocardiogram is not suggestive of acute coronary syndrome. His chest x-ray is within normal limits. Impression: These troponins are probably a false-positive troponin. There is nothing to suggest this is an acute coronary syndrome. I am not sure why the troponins were drawn. We will keep our eye on him, probably doing an echo, nuclear stress test to be sure about whether he has CAD or not. If he does, it is asymptomatic. POWER/LAVERNE Voice ID: [id number] Report ID: [id number] NANCI
--- NOTE | 2018-05-01 03:18 | HP ---
Date of Admission: 04/30/2018 History Of Present Illness: The patient is a 73-year-old male with multiple medical problems includi ng type 2 diabetes. He has had also cerebrovascular accident/stroke just few weeks ago. He was admi tted in [facility]. He was then discharged and he was feeling fairly well, but he al so recalled that he has been feeling sometimes weak and fatigued. However, he came to emergency room today because he felt weak more so and tired. He could not tell what is happening to him. His bloo d sugar was not low. However, we went ahead and admitted him for 23-hour observation. Review of Systems: Cardiovascular: No chest pain. No palpitation. Respiratory: No shortness of breath. No coughing. Gastrointestinal: Mild nausea. No vomiting. No other complaints. Genitourinary: No complaints. Skeletomuscular: No complaints. Neurological: The patient has had left eye vision affected after his stroke. He had mild weakness o n the right side of upper and lower extremity, which has improved, and he is ambulating with that. H e has no new complaint. Past Medical History: 1.As above. 2.Hypertension. 3.Hyperlipidemia. 4.Hypothyroidism. 5.The patient is legally blind with macular degeneration. 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 Family History: Noncontributory. Social History: No smoking, alcohol, or drug abuse history. Medications: Include amlodipine 10 mg p.o. daily, aspirin 81 mg p.o. daily, atorvastatin 80 mg p.o. daily, B12 1000 mcg p.o. daily, Lantus 35 units p.o. daily, levothyroxine 0.1 mg p.o. daily. Allergies: INCLUDE ACETAMINOPHEN, ANTIHISTAMINE. Physical Examination: Vital Signs: Blood pressure 140/70, pulse 58, temperature 99. Heart: Regular rate and rhythm. Chest: Clear to auscultation. Abdomen: Soft, nontender. No hepatosplenomegaly. Bowel sounds are normoactive. Extremities: No edema. No cyanosis. Peripheral pulses are felt. Neurological: The patient as mentioned is legally blind. His motor power is 5/5 on the left, and 4 to 5/5 on the right. Sensory is intact. Deep tendon reflexes 2/4. Diagnostic Data: Chest x-ray, no acute pathology. CBC nonrevealing. Sodium 132, BUN 15, creatinine 1.20. Troponin 0.210. Urinalysis noted. Assessment And Plan: Fatigue and malaise in a patient with increased risk for coronary artery diseas e. His troponin is also elevated checked in the emergency room. We are going to go ahead and check serial cardiac enzymes. I have asked Cardiology to see the patient for that and for his fatigue and malaise. We will go ahead and check also his thyroid. We will observe the patient overnight. We wi ll continue his home medicines and monitor his blood sugar. If the workup while he is under observat ion remains clinically stable, I expect discharge in the morning, and if Cardiology finds no cardiac issues. Look orders for details. CRISTOBAL/LAVERNE Voice ID: [id number]
[2018-05-01 05:45] LABS: Absolute Lymphocytes (CBC) 1.6 K/uL (0.7-4.9); Absolute Monocytes 0.8 K/uL (0.1-1.3); Absolute Neutrophil 4.4 K/uL (1.8-8.0); Basophils % 0.8 % (0-1.3); Eosinophils % 3.9 % (0-4.4); Hematocrit 42.5 % (39.6-49.0); Lymphocytes % 22.6 % (15.3-44.8); MCH 30.2 pg (27.0-35.0); MCV 86.5 fL (80-100); Monocytes % 11.5 % (3.3-12.3); RBC Red Blood Cell Count 4.91 M/uL (4.33-5.43)
[2018-05-01 06:00] LABS: Potassium 3.8 mmol/L (3.5-5.1)
--- NOTE | 2018-05-01 06:18 | EKG ---
Test Date: 2018-04-30 Test Time: 10:20:20 Restaurant Worker: RUFINO MEASUREMENT RESULTS: Intervals: Rate: 59 IA: 156 QRSD: 96 QT: 418 QTc: 413 [place]: P: 23 IA: 156 QRS: 16 T: 51 INTERPRETIVE STATEMENTS: Sinus bradycardia Otherwise normal ECG Compared to ECG 01/17/2018 09:31:44 Sinus rhythm no longer present Electronically Signed On 05-01-18 06:16:59 FINISH MIXER by Nain Barakat
[2018-05-01] MEDS: INSULIN -REGULAR HUMAN 50 UNIT/0.5 ML ML SQ SCH (07:30)
--- NOTE | 2018-05-01 07:33 | RAD REPORT ---
EXAM DESCRIPTION: RAD - Chest Single View - 05/01/2018 6:29 am CLINICAL HISTORY: Chest pain COMPARISON: April 30 TECHNIQUE: AP portable chest image was obtained 0540 hours . FINDINGS: Lungs are clear. Heart and vasculature are normal. No measurable pleural effusion and no p neumothorax. No acute bony abnormality seen. No acute aortic findings suspected. IMPRESSION: No acute cardiopulmonary process. No new or progressive finding from prior day study.
[2018-05-01 08:31] VITALS: BP 150/69; TEMP 97.1
[2018-05-01] MEDS ORDERED: ASPIRIN EC 81 MG TAB PO SCH (09:00)
[2018-05-01] MEDS: ENOXAPARIN 80 MG/0.8 ML SQ SCH (09:22)
[2018-05-01] MEDS: FAMOTIDINE 20 MG/2 ML VIAL IV SCH (09:22)
--- NOTE | 2018-05-03 13:01 | DS ---
Date of Discharge: 05/01/2018 hospital because of fatigue and malaise. The patient has a past medical history _ Cardiology to see the patient. the patient remains hemodynamically stable an d he felt much better after outpatient and Dr. Barakat and is stable to be discharged to [facility] with home medication. We also in the hospital to check his thyroid with . MFS/MODL Voice ID: [id number] Report ID: [id number]
== END 2018-05-01 11:46 | disposition home or self-care (01) ==
LOC: ER 09:39 → ERHOLD 11:20 → 2ND 13:38
PROVIDERS: ADMIT Internal Medicine; ATTEND Internal Medicine
DX: R53.83 Other fatigue (principal); R53.81 Other malaise; I10 Essential (primary) hypertension; E78.5 Hyperlipidemia, unspecified; E03.9 Hypothyroidism, unspecified; H54.8 Legal blindness, as defined in USA; H35.30 Unspecified macular degeneration
CPT/HCPCS: 36415 ×2; 71045 ×2; 80048 ×2; 80076; 81003 ×2; 82962 ×3; 83735; 83880; 84443 ×2; 84484 ×2; 85025 ×2; 87040 ×2; 87070; 87081; 87088; 87804 ×2; 93005; 96361; 96365; 96372; 99285; G0378 ×2; J0696; J1650 ×3; 87086

== ENCOUNTER 2022-06-26 09:20 | Inpatient (IN) | payer OTHER, MEDICARE ==
--- OUTSIDE RECORDS SUMMARY | 2022-06-26 09:25 | XMS REPORT | Continuity of Care Document ---
:1945 Author Organization [facility] t Address [address] [place] [address] [address]. [address] [place] [address] Care Team Providers Name Role Phone Adam Leahy MD Primary Care Physician ABDIEL SANZ Attending Clinician Unavailable Abdiel Sanz MD Attending Clinician Lab, Ang - [place] Attending Clinician Unavailable Ronna Connelly MD Attending Clinician RONNA CONNELLY Attending Clinician Unavailable Doctor Unassigned, [place] Attending Clinician Unavailable ADAM LEAHY Attending Clinician Unavailable JUD ANDERSON Attending Clinician Unavailable JUD ANDERSON Admitting Clinician Unavailable Payers Payer Name Policy Type Policy Number Effective Date Expiration Date S ourjon MEDICARE PART A \\T\\ [id number] 2011 B 00:00:00 [facility] [id number] 2020 MEDICARE SUPPLEMENT 00:00:00 [place] [id number] 2018 HEALTHCARE/[employer]ARP 00:00:00 Problems Condition Condition Condition Status Onset Resolution Last Treating Co mments Source Name Details Category Date Date Treatment Clinician Date Essential Essential Disease Active Uni vers hypertensi hypertensi 7-20 it y of on on 00:00: [place] [address] Medical Branch Hypertensi Hypertensi Disease Active U nivers ve urgency ve urgency 6-09 it y of 00:00: [place] 00 Medical Branch Type 2 Type 2 Disease Active Univers diabetes diabetes - ity of mellitus mellitus 00:00: [place] with other with other 00 Me dical specified specified Bran ch complicati complicati on, on, without without long-term long-term current current use of use of insulin insulin Acquired Acquired Disease Active Unive rs hypothyroi hypothyroi 609 it y of dism dism 00:00: [place] 00 Medical Branch Left Left Disease Active [facility] carotid carotid 7-21 [facility] artery artery 00:00: Medical stenosis stenosis 00 Center B12 B12 Disease Active [facility] deficiency deficiency 7-21 Marilynn kes 00:00: Medical 00 Center Macular Macular Disease Active [facility] degenerati degenerati 7-20 Marilynn kes on on 00:00: Medical Center Essential Essential Disease Active [facility] hypertensi hypertensi 7-20 Marilynn kes on on 00:00: Medical 00 Center Other Other Disease Active [facility] specified specified 7-20 [facility] hypothyroi hypothyroi 00:00: Me dical dism dism 00 Center Acute left Acute left Disease Active [facility] parietal, parietal, 7-20 Luke [facility] temporal temporal 00:00: Medica l and and 00 Center occipital occipital strokes strokes Type 2 Type [address] [facility] diabetes diabetes 7-20 [facility] mellitus mellitus 00:00: Medica l with with 00 Center hyperglyce hyperglyce kinjal, kinjal, without without long-term long-term current current use of use of insulin insulin Allergies, Adverse Reactions, Alerts Allergy Allergy Status Severity Reaction(s) Onset Inactive Treating Comm ents Source Name Type Date Date Clinician LOSARTAN DRUG Active Other-Cmnt Univ ers INGREDI 1-18 ity of 00:00: [place] 00 Medical Branch PREDNISO DRUG Active Other-Cmnt Univ ers NE INGREDI 1-18 ity of 00:00: 00 Medical Branch Losartan Propensi Active Other - See Eye pain Univers ty to comments 1-18 ity of adverse 00:00: [place] reaction 00 Medical s Branch Predniso Propensi Active Other - See Syncope, Univers ne ty to comments 1-18 "passing ity of adverse 00:00: out" [place] reaction Medical s Branch Celecoxi Propensi Active [facility] b ty to 7-20 [facility] adverse 00:00: Medical reaction 00 Center s Chlorphe Propensi Active [facility] niramine ty to 7-20 [facility] -Phenylp adverse 00:00: Medical ropan reaction 00 Center s Corticos Propensi Active [facility] teroids ty to 7-20 [facility] (Glucoco adverse 00:00: Medical rticoids reaction 00 Center ) s Levoflox Propensi Active Rash [facility] acin ty to 7-20 [facility] adverse 00:00: Medical reaction 00 Center s Losartan Propensi Active [facility] ty to 7-20 [facility] adverse 00:00: Medical reaction 00 Center s Metformi Propensi Active [facility] n ty to 7-20 [facility] adverse 00:00: Medical reaction 00 Center s Thiazide Propensi Active [facility] s ty to 7-20 [facility] adverse 00:00: Medical reaction 00 Center s Thiazide Propensi Active Anaphylaxis U nivers s ty to 7-20 ity of adverse 00:00: [place] reaction 00 Medical s Branch METFORMI DRUG Active Diarrhea Univer s N INGREDI 7-20 ity of 00:00: [place] 00 Medical Branch THIAZIDE Drug Active Anaphylaxis Uni vers S Class 7-20 ity of 00:00: [place] 00 Medical Branch Social History Social Habit Start Date Stop Date Quantity Comments Source Exposure to 2022-05-09 2022-05-19 Not sure [facility] SARS-CoV-2 00:00:00 13:39:00 [place] Medical (event) Branch Tobacco use and 2017-12-17 2017-12-[address] [facility] Marilynn kes exposure 00:00:00 00:00:00 Medical [place] Alcohol intake 2017-12-17 2017-12-[address] [facility] Jai es 00:00:00 00:00:00 non-drinker of Medical nter alcohol (finding) Sex Assigned At [address] [facility] Marilynn kes 00:00:00 00:00:00 Medical Center Smoking Status Start Date Stop Date Source Never smoked tobacco [facility] Medications Ordered Filled Start Stop Current Ordering Indication Dosage Frequency Signature Comments Components Source Medication Medication Date Date Medication? Clinician (SIG) Name Name amLODIPine Yes [id number] 10mg Take 1 U nivers 10 mg 8-01 tablet by ity of tablet 00:00: mouth in [place] 00 the Medical morning. Branch levothyroxi 2021-0 Yes [id number] 125ug Take 1 Univers ne 125 mcg 8-01 tablet by ity of tablet 00:00: mouth [place] 00 every Medical morning. Branch amLODIPine 2021-0 Yes [id number] 10mg Take 1 U nivers 10 mg 8-01 tablet by ity of tablet 00:00: mouth in [place] 00 the Medical morning. Branch levothyroxi 2021-0 Yes [id number] 125ug Take 1 Univers ne 125 mcg 8-01 tablet by ity of tablet 00:00: mouth [place] 00 every Medical morning. Branch amLODIPine 2021-0 Yes [id number] 10mg Take 1 U nivers 10 mg 8-01 tablet by ity of tablet 00:00: mouth in [place] 00 the Medical morning. Branch levothyroxi 2021-0 Yes [id number] 125ug Take 1 Univers ne 125 mcg 8-01 tablet by ity of tablet 00:00: mouth [place] 00 every Medical morning. Branch amLODIPine 2021-0 Yes [id number] 10mg Take 1 U nivers 10 mg 8-01 tablet by ity of tablet 00:00: mouth in [place] 00 the Medical morning. Branch levothyroxi 2021-0 Yes [id number] 125ug Take 1 Univers ne 125 mcg 8-01 tablet by ity of tablet 00:00: mouth [place] 00 every Medical morning. Branch amLODIPine 2021-0 Yes [id number] 10mg Take 1 U nivers 10 mg 8-01 tablet by ity of tablet 00:00: mouth in [place] 00 the Medical morning. Branch levothyroxi 2021-0 Yes [id number] 125ug Take 1 Univers ne 125 mcg 8-01 tablet by ity of tablet 00:00: mouth [place] 00 every Medical morning. Branch amLODIPine 2021-0 2021- No [id number] 10mg Take 1 Univers 10 mg 7-18 08-01 tablet by ity of tablet 00:00: 00:00 mouth in [place] 00 :00 the Medical morning. Branch LEVOTHYROXI 2021-0 2- No [id number] TAKE 1 Univers NE 150 mcg 3-28 07-19 TABLET BY ity of tablet 00:00: 00:00 MOUTH [place] 00 :00 DAILY IN Medical MORNING ON Branch EMPTY STOMACH amLODIPine 2021- No [id number] 10mg Take 1 Univers 10 mg 1-25 07-18 tablet by ity of tablet 00:00: 00:00 mouth [place] 00 :00 daily. [facility] Branch aspirin Yes 81mg Take 81 mg Univ ers (ASPIRIN 1-25 by mouth ity of LOW DOSE) 10:24: daily. [place] 81 mg EC 13 Medical tablet Branch aspirin Yes 81mg Take 81 mg Univ ers (ASPIRIN 1-25 by mouth ity of LOW DOSE) 10:24: daily. [place] 81 mg EC 13 Medical tablet Branch aspirin Yes 81mg Take 81 mg Univ ers (ASPIRIN 1-25 by mouth ity of LOW DOSE) 10:24: daily. [place] 81 mg EC 13 Medical tablet Branch aspirin Yes 81mg Take 81 mg Univ ers (ASPIRIN 1-25 by mouth ity of LOW DOSE) 10:24: daily. [place] 81 mg EC 13 Medical tablet Branch aspirin Yes 81mg Take 81 mg Univ ers (ASPIRIN 1-25 by mouth ity of LOW DOSE) 10:24: daily. [place] 81 mg EC 13 Medical tablet Branch aspirin Yes 81mg Take 81 mg Univ ers (ASPIRIN 1-25 by mouth ity of LOW DOSE) 10:24: daily. [place] 81 mg EC 13 Medical tablet Branch aspirin 81 Yes 81mg QD Take [address] MG EC 7-21 by mouth [facility] tablet 16:35: daily. [facility] 58 Center levothyroxi Yes 200ug Take [address] [facility] ne 7-21 tablet [facility] (SYNTHROID, 00:00: (200 mcg Me dical LEVOTHROID) 00 total) by Karmen ter 200 MCG mouth tablet Every morning on an empty stomach. amLODIPine Yes 10mg QD Take 1 [facility] t (NORVASC) 7-21 tablet (10 Luke s 10 MG 00:00: mg total) Medical tablet 00 by mouth Center daily. insulin Yes 20U QD Inject 20 [facility] t glargine 7-21 Units [facility] (LANTUS) 00:00: subcutaneo Med ical 100 unit/mL 00 usly every Ce nter (3 mL) InPn morning. Vital Signs Vital Name Observation Time Observation Value Comments Source Systolic blood 2022-05-19 19:57:00 175 mm[Hg] Univer sity [facility] [place] pressure [facility] Branch Diastolic blood 2022-05-19 19:57:00 99 mm[Hg] [facility] 2022-05-19 19:57:00 86 /min Universi ty [facility] Body height 2022-05-19 19:57:00 175.3 cm Universi ty [facility] Body weight 2022-05-19 19:57:00 86.637 kg Univers ty [facility] BMI 2022-05-19 19:57:00 28.21 kg/m2 Universi ty [facility] Oxygen saturation 2022-05-19 19:57:00 97 /min Uni versity of [place] in Arterial blood Medical Br anch by Pulse oximetry Systolic blood 2021-12-15 19:03:00 159 mm[Hg] Univer sity [facility] Diastolic blood 2021-12-15 19:03:00 70 mm[Hg] [facility] 2021-12-15 18:49:00 68 /min Universi ty [facility] [place] Medical [place] Body weight 2021-12-15 18:49:00 80.105 [facility] BMI 2021-12-15 18:49:00 26.08 kg/m2 Univers ty [facility] Oxygen saturation 2021-12-15 18:49:00 97 /min Uni versity of [place] in Arterial blood Medical Br anch by Pulse oximetry Procedures Procedure Date / Time Performed Performing Clinician Robin lees POCT HEMOGLOBIN A1C 2022-05-19 19:58:00 Abdiel Sanz [facility] POCT HEMOGLOBIN A1C 2021-12-15 19:04:00 Ronna Connelly [facility] Encounters Start End Encounter Admission Attending Care Care Encounter Source Date/Time Date/Time Type Type Clinicians Facility Department ID 2021-03-31 Emergency [facility] [id number] Univers [facility] 2021-03-29 Emergency [facility] [id number] Univers 17:50:40 [facility] 2022-06-19 2022-06-19 Telephone Talia OHELMER [id number] Univers 00:00:00 00:00:[place]ULT[place]PEC [id number] ity of [id number] [id number] [facility] AND [address] DIABETES CLINIC 2022-05-26 2022-05-26 Telephone Talia [facility] [id number] Univers 00:00:00 00:00:00 [facility] [id number] it y of [place] [id number] Jorge as CHRISTOPHER?BLEA [phone] [address] MEDICAL OFFICE BUILDING 2022-05-19 2022-05-19 P[employer] Retirement Plan Specialist Lab, Ang - Db [facility] 1.2.840.1 14 [id number] Univers 15:00:00 15:15:00 Visit Talia [facility] [id number] ity of [place] [id number] Jorge as CHRISTOPHER?BLEA [id number] [facility] [address] MEDICAL OFFICE [facility] 2022-05-19 2022-05-19 [facility] [id number] Univers 14:00:00 14:45:41 [facility] 2022-05-19 2022-05-19 [facility] [id number] Univers 14:00:00 14:45:41 Visit [facility] [id number] it y of [place] [id number] Jorge as CHRISTOPHER?BLEA [id number] [address] MEDICAL OFFICE [facility] 2021-12-29 2021-12-29 Telephone Ronna Connelly [facility] [id number] Univers 00:00:00 00:00:00 HEALTH [id number] it y of [place] [id number] Jorge as CHRISTOPHER?BLEA [id number] [address] MEDICAL OFFICE BUILDING 2021-12-23 2021-12-23 Outpatient R TALIA [facility] [id number] Univers 10:00:00 10:00:00 [facility] 2021-12-23 2021-12-23 Outpatient R TALIA [facility] [id number] Univers 10:00:00 10:00:00 ABDIEL mynor [facility] 2021-12-19 2021-12-19 Telephone Ronna Connelly [facility] [id number] Univers 00:00:00 00:00:00 HEALTH [id number] it y of [place] [id number] Jorge as CHRISTOPHER?BLEA [id number] [address] MEDICAL OFFICE [facility] 2021-12-16 2021-12-16 Telephone Davie [facility] [id number] Univers 00:00:00 00:00:00 PRIMARY [id number] it y of [place]2.[place] [facility] [id number] [address] 2021-12-15 2021-12-15 Office Davie, [facility] [id number] Univers 14:00:00 16:21:21 Visit HEALTH [id number] it y of [place] 4.2.7.2.686 Jorge as CHRISTOPHER?BLEA [id number] [address] [facility] 2021-12-15 2021-12-15 Outpatient R RONNA CONNELLY [facility] [id number] Univers 14:00:00 16:21:21 DAVIERONNA [facility] 2021-12-15 2021-12-15 [employer] Specialist Lab, Stuart Barnett [facility] 1.2.840.1 14 [id number] Univers 14:30:00 14:45:00 Visit Ronna Connelly HEALTH 350.1.13.10 it y of [place] 4.2.7.2.686 Jorge as CHRISTOPHER?BLEA [id number] [facility] 353 [facility] 2021-12-15 2021-12-15 Outpatient R DAVIERONNA [facility] [id number] Univers 14:00:00 14:00:00 DAVIERONNA [facility] 2021-08-25 2021-08-25 [facility] [id number] Univers 00:00:00 00:00:00 [place] [facility] 350.1.13.10 it y of [place] 4.2.7.2.686 Jorge as CHRISTOPHER?BLEA [id number] [facility] [address] MEDICAL OFF[facility] 2021-08-14 2021-08-14 Orders Doctor ISAURA [id number] Univers 00:00:00 00:00:00 Only Unassigned, ART 350.1.13.10 ity of [place] [facility] 4.2.7.2.686 Jorge as [id number] [address] 2021-07-17 2021-07-17 Telephone [facility] [id number] Univers 00:00:00 00:00:00 [place] 350.1.13.10 it y of [place] 4.2.7.2.686 Jorge as CHRISTOPHER?BLEA [phone] [address] MEDICAL OFFICE [facility] 2021-07-08 2021-07-08 Telephone [facility] [id number] Univers 00:00:00 00:00:00 Renew[employer] Funding [id number] it y of [place] 4.2.7.2.686 Jorge as CHRISTOPHER?BLEA [id number] [facility] 220 [facility] 2021-07-08 2021-07-08 Telephone [facility] [id number] Univers 00:00:00 00:00:00 [place] [employer] [id number] it y of [place] 4.2.7.2.686 Jorge as CHRISTOPHER?BLEA [id number] [facility] [address] MEDICAL OFF[facility] 2021-06-24 2021-06-24 P[employer] Ret[employer] Plan Specialist Lab, Ang - Db [facility] 1.2.840.1 14 [id number] Univers 10:00:00 10:15:00 Visit Talia [employer] [facility] [id number] ity of [place] 4.2.7.2.686 Jorge as CHRISTOPHER?BLEA [id number] [facility] [address] MEDICAL OFFICE BUILDING 2021-06-24 2021-06-24 Outpatient R TALIA [facility] [id number] Univers 10:00:00 10:00:00 [facility] 2021-06-24 2021-06-24 [employer] Ret[employer] Specialist Lab, Ang - Db [facility] 1.2.840.1 14 [id number] Univers 10:00:00 10:00:00 Visit Sanz, [facility] [id number] ity of [place] 4.2.7.2.686 Jorge as CHRISTOPHER?BLEA [phone] Al bk SANCHEZ [address] [place] [address] [facility]ICE [facility] 2021-06-24 2021-06-24 [facility] [id number] Univers 09:00:00 09:26:28 Visit [facility] 350.1.13.10 it y of [place] 4.2.7.2.686 Jorge as CHRISTOPHER?BLEA [phone] Al bk [address] [facility] 2021-06-24 2021-06-24 Outpatient R TALIA [facility] [id number] Univers 09:00:00 09:26:28 [facility] 2021-06-24 2021-06-24 Orders Doctor ISAURA [id number] Univers 00:00:00 00:00:00 Only Unassigned, ART 350.1.13.10 ity of [place] [facility] 4.2.7.2.686 Jorge as [id number] [address] 2021-06-17 2021-06-17 [facility] [id number] Univers 00:00:00 00:00:00 [facility] Typekit 350.1.13.10 it y of [place] 4.2.7.2.686 Jorge as CHRISTOPHER?BLEA [phone] Al bk SANCHEZ [address] [place] [address] [facility]ICE [facility] 2021-02-07 2021-02-07 Refill [facility] [id number] Univers 00:00:00 00:00:00 [facility] Health 350.1.13.10 it y of [place] 4.2.7.2.686 Jorge as Christopher?Blea [phone] Al bk [address] Medical Office Building 2020-12-17 2020-12-17 Outpatient Jimenez SANZ [facility] [id number] Univers 09:00:00 09:00:00 [facility] 2020-11-06 2020-11-06 Outpatient Jimenez SANZ [facility] [id number] Univers 13:30:00 13:30:00 [facility] 2020-08-09 2020-08-09 Outpatient Jimenez LEAHY [facility] [id number] Univers 13:00:00 13:00:00 [facility] 2020-07-19 2020-07-19 Outpatient Jimenez LEAHY [facility] [id number] Univers 14:00:00 14:00:00 [facility] 2020-07-12 2020-07-12 [facility] [id number] Univers 14:00:00 14:00:00 [facility] 2020-06-24 2020-06-24 Outpatient Jimenez LEAHY [facility] [id number] Univers 10:00:00 10:00:00 [facility] Results Test Description Test Time Test Comments Results Result Comments Source POCT HEMOGLOBIN A1C TEST 2022-05-19 19:58:00 Test Item Value Reference Range Interpretation Comme nts POCT HBA1C (test code = 4548-4) 7.2 % 4-6 A Lab Interpretation (test code = 73392-9) [facility]normal [facility] HEMOGLOBIN A1C [id number] 19:58:00 Test Item Value Reference Range Interpretation Comments POCT HBA1C (test code = 4548-4) 7.2 % 4-6 A Lab Interpretation (test code = Abnormal 18830-5) [facility] HEMOGLOBIN A1C [id number] 19:05:00 Test Item Value Reference Range Interpretation Comments POCT HBA1C (test code = 4548-4) 6.7 % 4-6 A Lab Interpretation (test code = Abnormal 68106-0) [facility]-GLUCOSE [id number] 12:21:00 Test Item Value Reference Range Interpretation Comments POC-GLUCOSE METER 315 mg/dL 70-110 H Notified R N MD/TESTED (BEAKER) (test code = [facility] [address] [facility] [id number] POCT-GLUCOSE [id number] 08:26:00 Test Item Value Reference Range Interpretation Comments POC-GLUCOSE METER 304 mg/dL 70-110 H Notified R N MD/TESTED (BEAKER) (test code = AT [facility] [address] [facility]) [facility] 7703 [id number] 06:46:00 Test Item Value Reference Range Interpretation Comments MAGNESIUM (BEAKER) 2.2 mg/dL 1.6-2.6 Specimen slightly (test code = 627) hemolyzed BASIC METABOLIC [id number] 06:46:00 Test Item Value Reference Range Interpretation Comments SODIUM (BEAKER) 133 meq/L 136-145 L (test code = 381) POTASSIUM (BEAKER) 4.0 meq/L 3.5-5.1 Specimen slightly (test code = 379) hemolyzed CHLORIDE (BEAKER) 101 meq/L 98-107 (test code = 382) CO2 (BEAKER) (test 24 meq/L 22-29 code = 355) BLOOD UREA NITROGEN 17 mg/dL 7-21 (BEAKER) (test code = 354) CREATININE (BEAKER) 1.19 mg/dL 0.57-1.25 Specimen slightly (test code = 358) hemolyzed GLUCOSE RANDOM 315 mg/dL 70-105 H (BEAKER) (test code = 652) CALCIUM (BEAKER) 9.5 mg/dL 8.4-10.2 (test code = 697) EGFR (BEAKER) (test 60 mL/min/1.73 ESTIMA HERMILO GFR IS code = 1092) sq m NOT ACCURATE CREATININE CLEARANCE IN PREDICTING GLOMERULAR FILTRATION RATE . ESTIMATED GFR I S NOT APPLICABLE FOR DIALYSIS PATIEN TS. CBC W/PLT COUNT & AUTO [id number] 06:43:00 Test Item Value Reference Range Interpretation Comments WHITE BLOOD CELL COUNT (BEAKER) 6.9 K/ L 3.5-10.5 (test code = 775) RED BLOOD CELL COUNT (BEAKER) 5.14 M/ L 4.63-6.08 (test code = 761) HEMOGLOBIN (BEAKER) (test code = 15.6 GM/DL 13.7-17.5 410) HEMATOCRIT (BEAKER) (test code = 46.3 % 40.1-51.0 411) MEAN CORPUSCULAR VOLUME (BEAKER) 90.1 fL 79.0-92.2 (test code = 753) MEAN CORPUSCULAR HEMOGLOBIN 30.4 pg 25.7-32.2 (BEAKER) (test code = 751) MEAN CORPUSCULAR HEMOGLOBIN CONC 33.7 GM/DL 32.3-36.5 (BEAKER) (test code = 752) RED CELL DISTRIBUTION WIDTH 12.5 % 11.6-14.4 (BEAKER) (test code = 412) PLATELET COUNT (BEAKER) (test 172 K/CU MM 150-450 code = 756) MEAN PLATELET VOLUME (BEAKER) 11.2 fL 9.4-12.4 (test code = 754) NUCLEATED RED BLOOD CELLS 0 /100 WBC 0-0 (BEAKER) (test code = 413) NEUTROPHILS RELATIVE PERCENT 60 % (BEAKER) (test code = 429) LYMPHOCYTES RELATIVE PERCENT 26 % (BEAKER) (test code = 430) MONOCYTES RELATIVE PERCENT 10 % (BEAKER) (test code = 431) EOSINOPHILS RELATIVE PERCENT 3 % (BEAKER) (test code = 432) BASOPHILS RELATIVE PERCENT 1 % (BEAKER) (test code = 437) NEUTROPHILS ABSOLUTE COUNT 4.11 K/ L 1.78-5.38 (BEAKER) (test code = 670) LYMPHOCYTES ABSOLUTE COUNT 1.79 K/ L 1.32-3.57 (BEAKER) (test code = 414) MONOCYTES ABSOLUTE COUNT (BEAKER) 0.66 K/ L 0.30-0.82 (test code = 415) EOSINOPHILS ABSOLUTE COUNT 0.22 K/ L 0.04-0.54 (BEAKER) (test code = 416) BASOPHILS ABSOLUTE COUNT (BEAKER) 0.04 K/ L 0.01-0.08 (test code = 417) IMMATURE GRANULOCYTES-RELATIVE 1 % 0-1 PERCENT (BEAKER) (test code = 2801) [id number] 02:37:00 Test Item Value Reference Range Interpretation Comments RPR SCREEN (BEAKER) (test code = Nonreactive Nonreactive 420) POCT-GLUCOSE [id number] 00:03:00 Test Item Value Reference Range Interpretation Comments POC-GLUCOSE METER 338 mg/dL 70-110 H Notified R Eamon JAQUEZ/TESTED (BONNY) (test code = AT [facility] [address] 5029) [facility] 7703 0 MR, MRA, NECK, WITHOUT IV [id number] 21:41:00Reason for exam:->stroke FINAL REPORT MRA Head CLINICAL HISTORY: Stroke TECHNIQUE: MRA of the head utilizing 3-D ihir-wq-dlendz technique, with 3-D reconstructions. COMPARISON: None FINDINGS: [...] of the neck utilizing 2-D and 3-D xzrc-gf-dlllvi technique, with 3-D reconstructions. COMPARISON: None IMPRESSION: There is 66% stenosis of the proximal left internal carotid artery by NASCET criteria. There is 20% stenosis of the proximal right internal carotid artery by NASCET criteria. There is severe attenuation ofthe left vertebral artery. There is preserved antegrade flow in the right vertebral artery. Signed: Chaparro Gomes [facility] Verified Date/Time: 12/17/2017 21:41:27 Reading Location: [facility] Radiology Reading Room MR, MRA, BRAIN, WITHOUT [id number] 21:41:00Reason for exam:->strokeFINAL REPORT MRA Head CLINICAL HISTORY: Stroke TECHNIQUE: MRA of the head utilizing 3-D egfk-ei-xlroat technique, with 3-D reconstructions. COMPARISON: None FINDINGS: [...] of the neck utilizing 2-D and 3-D bwps-ov-ubsyao technique, with 3-D reconstructions. COMPARISON: None IMPRESSION: There is 66% stenosis of the proximal left internal carotid artery by NASCET criteria. There is 20% stenosis of the proximal right internal carotid artery by NASCET criteria. There is severe attenuation ofthe left vertebral artery. There is preserved antegrade flow in the right vertebral artery. Signed: Chaparro Gomes MDReport Verified Date/Time: 12/17/2017 21:41:27 Reading Location: [facility] Radiology Reading Room MR, BRAIN, WITHOUT [id number] 21:30:00Reason for exam:->Stroke evaluationFINAL REPORT MRI Brain without contrast Clinical History: Stroke Technique: MRIof the brain utilizing axial T2, FLAIR, GRE, DWI; sagittal and coronal T1-weighted images. Comparisons: Outside head CT 12/16/2017 Findings: There are acute infarcts of the high left parietal lobe, leftparietal periventricular white matter, with scattered acute infarcts [...] cerebral artery flow void. Signed: Chaparro Gomes MDReport Verified Date/Time: 12/17/2017 21:30:55 Reading Location: [facility] Radiology Reading Room POCT-GLUCOSE METER 2017-12-17 18:05:00 Test Item Value Reference Range Interpretation Comments POC-GLUCOSE METER 270 mg/dL 70-110 H TESTED AT [place] [address] ([facility]) (test code = [place] 1538) [id number] VITAMIN [id number] 17:03:00 Test Item Value Reference Range Interpretation Comments VITAMIN B12 (BEGEORGES) (test code = < pg/mL 213-816 L 774) [id number] 15:45:00 Test Item Value Reference Range Interpretation Comments HOMOCYSTEINE (BEAKER) (test code 16.8 umol/L 5.1-15.4 H = 642) POCT-GLUCOSE [id number] 12:49:00 Test Item Value Reference Range Interpretation Comments POC-GLUCOSE METER 308 mg/dL 70-110 H Notified R Eamon MD/TESTED (BONNY) (test code = AT [facility] [address] [facility] 15[address]) [facility] [id number] CREATINE KINASE (CK), TOTAL AND [id number] 09:37:00 Test Item Value Reference Range Interpretation Comments CREATINE KINASE TOTAL (BEAKER) 78 U/L 29-200 (test code = 380) CREATINE KINASE-MB (BEAKER) (test 1.9 ng/mL 0.0-6.6 code = 750) CREATINE KINASE-MB INDEX (BEAKER) 2.4 % (test code = 395) CK-MB Reference Range:<6.7 Normal6.7-10.0 Borderline>10.0 AbnormalTROPONIN [id number] 09:37:00 Test Item Value Reference Range Interpretation Comments TROPONIN I (BEAKER) (test code = 0.03 ng/mL 0.00-0.03 397) Troponin I (TnI) levels must be interpreted [...] acidosis, acute neurological disease, and persistent tachyarrhythmia.HEMOGLOBIN [id number] 09:27:00 Test Item Value Reference Range Interpretation Comments HEMOGLOBIN A1C (BEAKER) (test code = 12.1 % 4.3-6.1 H 368) POCT-GLUCOSE [id number] 08:53:00 Test Item Value Reference Range Interpretation Comments POC-GLUCOSE METER 289 mg/dL 70-110 H TESTED AT [facility] [address] (BEAKER) (test code = [place] 1538) [address] T4, [id number] 05:26:00 Test Item Value Reference Range Interpretation Comments FREE T4 (BEAKER) (test code = 655) 0.83 ng/dL 0.70-1.48 TSH/FREE T4 IF [id number] 04:27:00 Test Item Value Reference Range Interpretation Comments THYROID STIMULATING HORMONE 10.00 uIU/mL 0.35-4.94 H (BEAKER) (test code = 772) VITAMIN B12 AND [id number] 04:27:00 Test Item Value Reference Range Interpretation Comments VITAMIN B12 (BEAKER) (test code = < pg/mL 213-816 L 774) FOLATE (BEAKER) (test code = 362) 15.7 ng/mL >=7.0 [id number] 03:52:00 Test Item Value Reference Range Interpretation Comments MAGNESIUM (BEAKER) 2.2 mg/dL 1.6-2.6 Specimen slightly (test code = 627) hemolyzed BASIC METABOLIC [id number] 03:52:00 Test Item Value Reference Range Interpretation Comments SODIUM (BEAKER) 133 meq/L 136-145 L (test code = 381) POTASSIUM (BEAKER) 3.8 meq/L 3.5-5.1 Specimen slightly (test code = 379) hemolyzed CHLORIDE (BEAKER) 100 meq/L 98-107 (test code = 382) CO2 (BEAKER) (test 20 meq/L 22-29 L code = 355) BLOOD UREA NITROGEN 17 mg/dL 7-21 (BEAKER) (test code = 354) CREATININE (BEAKER) 1.11 mg/dL 0.57-1.25 Specimen slightly (test code = 358) hemolyzed GLUCOSE RANDOM 340 mg/dL 70-105 H (BEAKER) (test code = 652) CALCIUM (BEAKER) 9.4 mg/dL 8.4-10.2 (test code = 697) EGFR (BEAKER) (test 65 mL/min/1.73 ESTIMA HERMILO GFR IS code = 1092) sq m NOT ACCURATE CREATININE CLEARANCE IN PREDICTING GLOMERULAR FILTRATION RATE . ESTIMATED GFR I S NOT APPLICABLE FOR DIALYSIS PATIEN TS. LIPID [id number] 03:52:00 Test Item Value Reference Range Interpretation Comments TRIGLYCERIDES (BEAKER) 351 mg/dL Speci men slightly (test code = 540) hemolyzed CHOLESTEROL (BEAKER) 216 mg/dL Specime n slightly (test code = 631) hemolyzed HDL CHOLESTEROL (BEAKER) 35 mg/dL (test code = 976) LDL CHOLESTEROL 111 mg/dL CALCULATED (BEAKER) (test code = 633) Triglyceride Reference Range: Low Risk <150 Borderline 150-199 High Risk 200- 499 Very High Risk >=500Cholesterol Reference Range: Low Risk <200 Borderline 200-239 High Risk >240HDL Cholesterol Reference Range: Low Risk >=60 High Risk <40LDL Cholesterol Reference Range: Optimal <100 Near Optimal 100-129 Borderline 130-159 High 160-189 Very High >=190CBC W/PLT COUNT & AUTO [id number] 03:29:00 Test Item Value Reference Range Interpretation Comments WHITE BLOOD CELL COUNT (BEAKER) 7.2 K/ L 3.5-10.5 (test code = 775) RED BLOOD CELL COUNT (BEAKER) 4.80 M/ L 4.63-6.08 (test code = 761) HEMOGLOBIN (BEAKER) (test code = 14.5 GM/DL 13.7-17.5 410) HEMATOCRIT (BEAKER) (test code = 43.2 % 40.1-51.0 411) MEAN CORPUSCULAR VOLUME (BEAKER) 90.0 fL 79.0-92.2 (test code = 753) MEAN CORPUSCULAR HEMOGLOBIN 30.2 pg 25.7-32.2 (BEAKER) (test code = 751) MEAN CORPUSCULAR HEMOGLOBIN CONC 33.6 GM/DL 32.3-36.5 (BEAKER) (test code = 752) RED CELL DISTRIBUTION WIDTH 12.4 % 11.6-14.4 (BEAKER) (test code = 412) PLATELET COUNT (BEAKER) (test 176 K/CU MM 150-450 code = 756) MEAN PLATELET VOLUME (BEAKER) 10.9 fL 9.4-12.4 (test code = 754) NUCLEATED RED BLOOD CELLS 0 /100 WBC 0-0 (BEAKER) (test code = 413) NEUTROPHILS RELATIVE PERCENT 63 % (BEAKER) (test code = 429) LYMPHOCYTES RELATIVE PERCENT 23 % (BEAKER) (test code = 430) MONOCYTES RELATIVE PERCENT 9 % (BEAKER) (test code = 431) EOSINOPHILS RELATIVE PERCENT 3 % (BEAKER) (test code = 432) BASOPHILS RELATIVE PERCENT 1 % (BEAKER) (test code = 437) NEUTROPHILS ABSOLUTE COUNT 4.53 K/ L 1.78-5.38 (BEAKER) (test code = 670) LYMPHOCYTES ABSOLUTE COUNT 1.68 K/ L 1.32-3.57 (BEAKER) (test code = 414) MONOCYTES ABSOLUTE COUNT (BEAKER) 0.64 K/ L 0.30-0.82 (test code = 415) EOSINOPHILS ABSOLUTE COUNT 0.24 K/ L 0.04-0.54 (BEAKER) (test code = 416) BASOPHILS ABSOLUTE COUNT (BEAKER) 0.04 K/ L 0.01-0.08 (test code = 417) IMMATURE GRANULOCYTES-RELATIVE 1 % 0-1 PERCENT (BEAKER) (test code = 8897)
[2022-06-26 11:29] LABS: Specific Gravity 1.008 (1.005-1.030); Urine Bacteria None Seen /HPF (<20); Urine Bilirubin NEGATIVE (Negative); Urine Blood Negative (Negative); Urine Clarity Clear (Clear); Urine Color Colorless (Yellow); Urine Glucose NEGATIVE (Negative); Urine Mucus Slight /HPF (None Seen); Urine Protein NEGATIVE (Negative); Urine RBC <5 /HPF (None Seen); Urine Urobilinogen Normal (Normal); Urine pH 6.5 (5.0-7.0)
[2022-06-26] MEDS ORDERED: DOCUSATE NA/SENNA CONC 1 TAB PO PRN (15:00)
[2022-06-26] MEDS ORDERED: ACETAMINOPHEN 500 MG TAB PO PRN (15:00)
[2022-06-26 16:40] VITALS: BMI 26.6
--- NOTE | 2022-06-26 18:55 | HP ---
Date of Admission: 06/26/2022 Yiyq-Df-Yppp Visit Time Of Service: 10:30 a.m. Chief Complaint: Loss of balance and falling. History Of Present Illness: Mr. Callaway is a 77-year-old right-handed patient with hyperten yobany, hypothyroidism, diabetes mellitus who is legally blind now and has had recent falls. He was se en by his primary care physician after he was referred there by his meal grinder tender due to poorly con trolled blood sugars and hypothyroidism. Furthermore, he had recently completely lost vision and had significant difficulty mobilizing. His had him to use a rolling walker for ambulation; however , he still has had significant instability and has had multiple falls including a fall in the shower where he hit his lower back. However, there was reportedly no area of point tenderness to suggest a fracture. The patient's primary care physician is highly worried about his inability to maintain his balance and his high risk of falling given his now recent complete blindness and noted he would like ly benefit highly from aggressive inpatient rehabilitation to help him adjust all of the [facility] ents. As a result of that and his comorbid conditions, he was determined to be an appropriate candid ate for inpatient rehabilitation and was therefore admitted to the inpatient rehabilitation unit for physical and occupational therapy that is aggressively done in therapy. Past Medical History: As noted, diabetes, hypertension, hypothyroidism, and legal blindness. Allergies: ACETAMINOPHEN, ALKYLAMINE, ETHANOLAMINE, PIPERAZINE, IN ADDITION TO CELECOXIB, CODEINE, D EXTROMETHORPHAN, PSEUDOEPHEDRINE, AND PHOSPHORUS. Past Surgical History: Left ring finger amputation and right knee surgery. Family History: Diabetes in mother and father along with hypothyroidism in father. Social History: No alcohol, tobacco, or IV drug use. The patient does drink caffeinated beverages. Medications: Levothyroxine 125 mcg daily, amlodipine 5 mg twice daily, aspirin 81 mg daily. He is o n Eliquis 2.5 mg twice daily for DVT prophylaxis, Senokot-S 2 at night for constipation, and Tylenol 500 mg every 4 hours as needed for pain. Review of Systems: As noted legally blind and difficulty with his balance and coordination as well as mild myalgias arth ralgias; however, no other active issues in a 10 point systems review. Laboratory Studies: White blood cell count 8.0, hemoglobin 14.2, hematocrit 44.3, and platelets 205. Chemistries: Sodium 137, potassium 3.9, and glucose 141. Hemoglobin A1c 7.5. Albumin 5.3. Calci um 9.6. X-ray/imaging: None. Physical Examination: Vital Signs: Blood pressure 177/83, pulse of 63, respiratory rate 16, and temperature 97.5. General: Mr. Callaway is sitting in a chair in his room. He is legally blind and can make out shadows . HEENT: He is normocephalic, atraumatic. Sclerae anicteric. Oropharynx is pink and moist. Neck: Supple. Chest: Clear. Heart: Regular. Extremities: No significant edema, cyanosis or clubbing. Neurologic: He is alert and oriented to person, place, time, and situation. He follows commands moreno ropriately. Cranial Nerves: Light perception otherwise extraocular movements appear intact. Face i s symmetric and no focal findings on cranial nerves. On motor examination, mild diffuse weakness in upper and lower extremities, but at least 4/5 strength proximally and distally. On sensory exam, sto cking-glove loss to light touch and temperature. Reflexes depressed in upper and lower extremities. Coordination slow, but intact in upper and lower extremities. Gait: He does require a walker and a strong contact guard to maintain his balance and he has to hold onto nearby objects in order to [place] around. Current Level Of Functioning: For eating, oral hygiene, and toileting he requires set up to moderate assistance; showering moderate assistance; upper body dressing, minimum assistance required; low bod y dressing, moderate assistance, sit to stand, moderate assistance; transfer from bed to chair, moder ate assistance of level required; toilet transfers, moderate assistance; ambulation, moderate assista nce required. He can ambulate around 50 feet and still required moderate assistance and max assist f or up and down 1 step. Medical And Rehab Assessment And Plan: Mr. Callaway is a 77-year-old patient who was recently complete ly blind and has mild debility in addition to incoordination, difficulty with his balance and high fa ll risk and has had recent falls, but no injuries yet. He does have diabetes mellitus, hypertension, dyslipidemia, hypothyroidism, and has a history of coronary artery disease status post bypass grafti ng. He has poorly controlled blood pressures as well. His rehabilitation impairment category is 20, which is miscellaneous. His rehabilitation impairment group code is 16, as debility. As etiology d iagnosis, diffuse weakness. His active comorbidities are multiple falls, hypertension, hypothyroidis m, diffuse weakness, diabetes mellitus, and dyslipidemia. In addition to being legally blind and inc reased urinary frequency, his risk of complications include uncontrolled diabetes, uncontrolled hyper tension, falls, fracture with injury, stroke, myocardial infarction, fatigue, and urinary incontinenc e. Plan: 1.He will have physical, occupational, and speech therapy 3.5 hours, 5 of 7 days. 2.For his hypertension, diabetes, and dyslipidemia, his medications will be used and continued as in dicated above. 3.He will also have Eliquis 2.5 mg twice daily for DVT prophylaxis. 4.In addition, Senokot for stools. 5.Urinalysis will be done to rule out urinary tract infection given urinary frequency. 6.In addition, GE reflux medication will be continued for gastroesophageal reflux. 7.He will have someone with him at all times to navigate the unit given he is legally blind and with therapy, he will have the walker as he ambulates at all times. Impact Of Comorbid Conditions: Given his legal blindness, he has to learn to negotiate corners and u ignacia surfaces using a walker and depending on how well he does, a cane will be introduced as well. Again, rehab plan, he will have 3.5 hours, 5 of 7 days of physical, occupational, and speech therapy to help improve his strength, coordination, endurance, balance, ability to negotiate surfaces that ar e uneven and corners as well, how to go backwards, how to turn around in small spaces and how to marsh sfer from bed, chair, toilet and shower and maintaining an upright position. He does have a good understanding of the process of his inpatient rehabilitation and is likely to imp rove from the multidisciplinary approach including medical management along with physical, occupation al, and speech therapy. If need be, Respiratory Service, Nutrition Service, Wound Care Services and Psychological Services will be consulted. Given his complex medical condition and the need for aggre ssive physical therapy, services to help him improve would not be adequately provided at a lower leve l of medical management such as a alf. Therefore, rehabilitation in inpatient unit is pr eferred. Barriers To Discharge: At this point, he has family involvement and his medical conditions are being addressed and medication will be appropriately adjusted and do not provide a big barrier to discharg e. Estimated Length Of Stay: Around 10 days. Disposition: He is expected to be discharged home. Prognosis is good. Rehabilitation Goals: 1.To become independent with mobilization given his blindness around narrow hallways, small rooms, m oving backwards, and also on uneven surfaces up and down and outside as well as inside. 2.Management of blood sugar and diabetes should be improved, management of hypertension should be im proved. Maintaining stroke risk reduction and myocardial infarction risk reduction also will be done with medication management. I acknowledge I have personally performed a full physical examination on Mr. Callaway just as he arrive d on the unit within about an hour and I have determined that he is able to tolerate the above course of treatment at an intensive level for the period of time as outlined, which is about 10 days. An i ndividualized plan of care for him will be completed by hospital day 4, based on the preadmission screen, history and physical and the therap eutic evaluations. PARISH Voice ID: [id number]
[2022-06-26] MEDS: AMLODIPINE 5 MG TAB PO SCH (19:56)
[2022-06-26] MEDS: APIXABAN 2.5 MG TABLET PO SCH (19:56)
[2022-06-26] MEDS: MELATONIN 3 MG TABLET PO PRN (19:58)
[2022-06-27 05:57] LABS: Absolute Lymphocytes (CBC) 1.7 K/uL (0.7-4.9); Lymphocytes % 27.1 % (15.3-44.8); MCV 93.8 fL (80-100); MPV 8.5 fL (7.6-11.3); RBC Red Blood Cell Count 3.94 M/uL (4.33-5.43)
[2022-06-27 06:17] LABS: Albumin 3.6 g/dL (3.4-5.0); Magnesium 2.3 mg/dL (1.6-2.4); Potassium 4.2 mmol/L (3.5-5.1); Prealbumin 18.7 mg/dL (20-40)
[2022-06-27] MEDS: LEVOTHYROXINE SOD 0.125 MG TAB PO SCH ×2 (06:30→06:55)
[2022-06-27] MEDS: APIXABAN 2.5 MG TABLET PO SCH ×2 (08:16→19:42)
[2022-06-27] MEDS: AMLODIPINE 5 MG TAB PO SCH ×2 (08:16→19:42)
[2022-06-27] MEDS: MELATONIN 3 MG TABLET PO PRN (19:42)
[2022-06-28] MEDS: LEVOTHYROXINE SOD 0.125 MG TAB PO SCH (06:25)
[2022-06-28] MEDS: AMLODIPINE 5 MG TAB PO SCH ×2 (07:36→19:57)
[2022-06-28] MEDS: APIXABAN 2.5 MG TABLET PO SCH ×2 (07:36→19:58)
[2022-06-28] MEDS: POLYETHYL GLY 3350 17 GM/DOSE PO PRN (08:46)
[2022-06-29] MEDS: APIXABAN 2.5 MG TABLET PO SCH ×3 (07:27→20:01)
[2022-06-29] MEDS: AMLODIPINE 5 MG TAB PO SCH ×2 (07:28→20:01)
[2022-06-29] MEDS: LEVOTHYROXINE SOD 0.125 MG TAB PO SCH (07:28)
[2022-06-29] MEDS ORDERED: ENOXAPARIN 40 MG/0.4 ML SQ SCH (17:00)
[2022-06-29] MEDS ORDERED: cloNIDine HCL 0.1 MG TAB PO PRN (20:57)
--- NOTE | 2022-06-29 21:13 | PN ---
Date of Progress Note: 06/29/2022 Time Of Service: 1:00 p.m. Subjective: Mr. Callaway is doing well. Aside from his near-complete blindness, he is only able to ac tually see very bright light directly in front of him. He has no new complaints. He is doing well. Review of Systems: No fevers, chills, nausea, vomiting, myalgias, arthralgias, rash, headache, weight change. No psychi atric complaints. No gastrointestinal or genitourinary complaints. Physical Examination: Vital Signs: Blood pressure 173/85 down to 146/77; pulse ranged from 57 to 76; temperature 97.5; res piratory rate 16 to 18; temperature 98. Weight 180 pounds. Height 5 feet 9 inches. BMI 26. General: Mr. Callaway is sitting in a chair beside the bed. He is in no acute distress. HEENT: He is normocephalic, atraumatic. Sclerae anicteric. Oropharynx is pink and moist. Neck: Supple. Chest: Clear. Heart: Regular. Extremities: Show no significant edema, cyanosis, or clubbing. Neurological: He is alert and oriented to situation, place, and person. Follows commands appropriat violeta. No focal cranial nerve deficits aside from complete blindness. In his motor examination, mild diffuse weakness of upper and lower extremity. Coordination slow, but intact in upper and lower extr emities. Sensory exam, mild stocking-glove loss light touch, temperature. Laboratory Studies: White blood cell count 6.3, hemoglobin 12.5, platelets 176. Chemistries: Sodiu m 139, potassium 4.2, chloride 103, carbon dioxide 30, BUN 25, creatinine 1.39. Glucose ranged from 125 to 152. Prealbumin 18.7, albumin 3.6. Magnesium 2.3. Calcium 9.2. Urinalysis is negative. CO VID-19 testing is negative. X-ray Imaging: No x-ray images. Medications: Tylenol 500 mg every 4 hours as needed, Norvasc 5 mg twice daily, Eliquis 2.5 mg twice daily, Synthroid 0.125 mg daily, melatonin 3 mg at bedtime, Senokot S 2 at bedtime. Current Functional Status: Mr. Callaway is able to ambulate with a rolling walker, covering 250 twice and another 120 feet twice with contact guard assistance with the rolling walker. He is able to do m ultiple turns to the left and right with verbal cues, avoiding obstacles. He did ascend and descend 20 steps with both handrails with contact guard assistance. In terms of speech therapy, sustained at tention for 1 minute was demonstrated with 70% accuracy without reasoning for problem-solving skills exhibited with 90% accuracy and moderate assistance. Free recall of 3/3 unrelated words with 35% acc uracy with verbal cues, 100% accuracy with moderate assistance. Progress Toward Rehabilitation Goals: Mr. Callaway is making excellent progress thus far towards his r ehabilitation goals of becoming independent with upper and lower body dressing, toileting, transferri ng, mobilizing household distances. Assessment: Mr. Callaway is a 77-year-old patient admitted to rehabilitation unit with debility, multi ple falls, and unsteady gait. He has hypertension, diabetes, dyslipidemia, hypothyroidism, coronary artery disease, status post bypass grafting. Plan: 1.Continue physical and occupational every 3.5 hours 5 to 7 days. 2.Hypertension, diabetes, dyslipidemia are managed by continuing medications as noted above. 3.Continue Eliquis 2.5 mg twice daily for DVT prophylaxis. 4.Continue Senokot for constipation. 5.Continue melatonin for insomnia. Comorbidities That Continue To Impact Rehabilitation Process: At this point, his comorbidities do no t negatively impact his rehabilitation process and he is doing very well. MARIELLA/LAVERNE Voice ID: [id number] Report ID: [id number]
[2022-06-30] MEDS: LEVOTHYROXINE SOD 0.125 MG TAB PO SCH (06:38)
[2022-06-30] MEDS: APIXABAN 2.5 MG TABLET PO SCH (08:00)
[2022-06-30] MEDS ORDERED: ENOXAPARIN 40 MG/0.4 ML SQ SCH (08:00)
[2022-06-30] MEDS: AMLODIPINE 5 MG TAB PO SCH ×2 (09:05→20:17)
[2022-06-30] MEDS: POLYETHYL GLY 3350 17 GM/DOSE PO PRN (20:19)
[2022-07-01] MEDS: LEVOTHYROXINE SOD 0.125 MG TAB PO SCH (07:27)
[2022-07-01] MEDS: AMLODIPINE 5 MG TAB PO SCH ×2 (08:00→20:36)
--- NOTE | 2022-07-01 16:08 | PN ---
Date of Progress Note: 06/30/2022 Time Of Service: 1:30 p.m. Subjective: Mr. Callaway is doing well. Reports some disturbances of vision. He is now totally blind , but did see shapes and strange things in his vision. Otherwise, he has no new complaints. Review of Systems: No fevers, chills, nausea, vomiting, myalgias, arthralgias, rash, headache. No psychiatric complaint s. No gastrointestinal or genitourinary complaints. Physical Examination: Vital Signs: Blood pressure 120/65, pulse 66, respiratory rate 18, temperature 97.7, oxygen saturati on 99%. Weight 180 pounds. Height 5 feet 9 inches. BMI 26. General: Mr. Callaway is sitting in a chair beside the bed. He is in no acute distress. HEENT: He appears normocephalic, atraumatic. Sclerae are anicteric. Oropharynx is pink and moist. Neck: Supple. Chest: Clear. Heart: Regular. Extremities: Show no significant edema, cyanosis, or clubbing. Neurological: He is blindly, only detects very bright light close-up and potentially may determine f ast moving objects only very close to his face. Otherwise, he does not have any focal deficits. Lowell e incoordination for balance with his gait and he does have difficulty navigating areas because of hi s loss of vision. Laboratory Studies: Complete blood count with differential essentially unremarkable. Hemoglobin 12. 5, white blood cell count is normal. Platelets are normal. Chemistry, blood sugars ranged from 125 to 152, prealbumin 18.7. X-ray Imaging: None. Medications: Medications have not changed since yesterday. He is still on Norvasc 5 mg twice daily, melatonin 3 mg at bedtime, Senokot-S 2 at bedtime, Tylenol Extra Strength 500 mg every 4 hours. Current Functional Status: Currently, he ambulated with a rolling walker on level surface covering 2 50 feet twice and 120 feet twice with contact guard assistance. He did require verbal cues for redir ection. He did his walking stick inside on level surfaces and covered 250 feet with contact guard as sistance and verbal cues for navigation. Progress Towards Rehabilitation Goals: He is making excellent progress towards rehabilitation goals of becoming close to modified independence. However, given he is completely blind, he will likely re quire verbal cues to assist some from navigating around objects. Assessment: Mr. Callaway is a 77-year-old patient admitted to the rehabilitation unit with debility an d multiple falls. He is there completely blind. He has hypertension, diabetes, dyslipidemia, hypoth yroidism, coronary artery disease, does have bypass grafting remotely. Plan: 1.Aggressive physical and occupational therapy. 2.His comorbid conditions that are listed above were addressed by continuing the medications as note d. He is now off Eliquis and will use SCDs at night. He is ambulating very well. Senokot for const ipation, and melatonin for insomnia. Comorbidities That Impact His Rehabilitation Process: At this stage, aside from his near blindness w tessie does require lots of verbal cues and a walking stick to avoid objects, he has no other limitatio ns in terms of conditions that impact his rehabilitation progress. MARIELLA/LAVERNE Voice ID: [id number] Report ID: [id number]
--- NOTE | 2022-07-01 18:38 | PN ---
Date of Progress Note: 07/01/2022 Time Of Service: 1 p.m. Subjective: Mr. Callaway is doing well today. He denies any new complaints. Says his vision changes have not worsened and he has no other complaints. Review of Systems: No fevers, chills, nausea, vomiting, myalgias, arthralgias, rash, psychiatric complaints, gastrointes tinal or genitourinary complaints. Physical Examination: Vital Signs: Blood pressure 120/65, pulse 66, respiratory rate 18, temperature 97.7, oxygen saturati on 99%. General: Mr. Callaway is resting, eating his lunch. He is in no acute distress. Neurological: Aside from the complete blindness, he has no focal neurological deficits. Abdomen: Soft. Extremities: Show no significant edema or cyanosis. His strength is improving. He has some difficu lty navigating the corners and objects because of his blindness. Laboratory Studies: Blood sugars ranged from 147 to 151. X-ray imaging: No new x-ray imaging. Medications: Have not changed since yesterday continued to include Synthroid, Norvasc, clonidine, Se nokot S. It should be noted that he has not had a bowel movement in 2 days and milk of magnesia will be used along with lactulose, if need be, and Senokot will be continued. Current Functional Status: Currently, he did ambulate 10 feet and 50 feet independently using a walk ing stick. He did ambulate another 200 feet with standby assistance and verbal cues being required d ue to the blindness. He did multiple stand and pivot transfers independently using his walking stick and this is an upright walking stick. He is also independent with urination care as he m anage those in the toilet. His clothing management was independent. Washing hands done independentl y. In terms of speech therapy, he sustained attention for a minute with 70% accuracy and minimum ass istance. He did require using internal visual strategies recall 2 to 3 words on the first attempt an d then 3 of 3 words on a second and third attempt. He did verbal organization to name 5 members of a n abstract category with minimum assistance. Progress Towards Rehabilitation Goals: He is making excellent progress towards his goals of becoming independent to modified independence with his transfers, mobilization, donning and doffing clothes, eating, and toileting, showering and ambulating over 500 feet. Assessment And Plan: Mr. Callaway is a 77-year-old patient admitted to the rehabilitation unit with de bility, multiple falls with unsteady gait, complete blindness. He has hypertension, diabetes, dyslip idemia, hypothyroidism, coronary artery disease. Plan: 1.Physical and occupational and speech therapy 3.5 hours 5 of 7 days. 2.Comorbid conditions are managed by continuing his list of medications as noted above. 3.He will have DVT prophylaxis with sequential compression devices at night and mobilization during the day as he is ambulating very well and is freely mobile. 4.Constipation, managed by milk of magnesia, Senokot S, lactulose if need be and along with MiraLax. 5.Melatonin for insomnia. Comorbids That Continue To Impact Rehabilitation Process: At this stage of his therapy, he has no si gnificant limitations to his rehabilitation. He is doing excellent. MARIELLA/LAVERNE Voice ID: [id number] Report ID: [id number]
[2022-07-02 05:45] LABS: Absolute Lymphocytes (CBC) 1.8 K/uL (0.7-4.9); Hematocrit 37.9 % (39.6-49.0); MPV 8.7 fL (7.6-11.3); RBC Red Blood Cell Count 4.03 M/uL (4.33-5.43)
[2022-07-02 06:07] LABS: Albumin 3.4 g/dL (3.4-5.0); Magnesium 2.4 mg/dL (1.6-2.4); Potassium 4.2 mmol/L (3.5-5.1); Prealbumin 21.8 mg/dL (20-40)
[2022-07-02] MEDS: LEVOTHYROXINE SOD 0.125 MG TAB PO SCH (06:53)
[2022-07-02] MEDS: AMLODIPINE 5 MG TAB PO SCH (06:53)
[2022-07-02 06:55] VITALS: BP 124/66
[2022-07-02 07:12] VITALS: TEMP 97.5
--- NOTE | 2022-07-02 08:59 | P.RH.PN ---
Estimated Length of Stay: 9 Expected Discharge Date: 07/02/22 Family Support: Yes Scrap Baler Goal: Mobility, Transfers, Self Care Vital Signs: Last Vital Signs Temp 97.5 F 07/02/22 07:11 Pulse 62 07/02/22 07:11 Resp 18 07/02/22 07:11 BP 124/66 07/02/22 07:11 Pulse Ox 97 07/02/22 07:11 Laboratory: Laboratory Last Values WBC 6.30 K/uL (4.3-10.9) 07/02/22 05:08 RBC 4.03 M/uL (4.33-5.43) L 07/02/22 05:08 Hgb 12.8 g/dL (13.6-17.9) L 07/02/22 05:08 Hct 37.9 % (39.6-49.0) L 07/02/22 05:08 MCV 94.0 fL (80-100) 07/02/22 05:08 MCH 31.6 pg (27.0-35.0) 07/02/22 05:08 MCHC 33.6 g/dL (32.0-36.0) 07/02/22 05:08 RDW 13.5 % (12.1-15.2) 07/02/22 05:08 Plt Count 178 K/uL (152-406) 07/02/22 05:08 MPV 8.7 fL (7.6-11.3) 07/02/22 05:08 Neutrophils % 56.9 % (41.7-73.7) 07/02/22 05:08 Lymphocytes % 28.0 % (15.3-44.8) 07/02/22 05:08 Monocytes % 10.2 % (3.3-12.3) 07/02/22 05:08 Eosinophils % 4.3 % (0-4.4) 07/02/22 05:08 Basophils % 0.6 % (0-1.3) 07/02/22 05:08 Absolute Neutrophils 3.6 K/uL (1.8-8.0) 07/02/22 05:08 Absolute Lymphocytes 1.8 K/uL (0.7-4.9) 07/02/22 05:08 Absolute Monocytes 0.6 K/uL (0.1-1.3) 07/02/22 05:08 Absolute Eosinophils 0.3 K/uL (0-0.5) 07/02/22 05:08 Absolute Basophils 0.0 K/uL (0-0.5) 07/02/22 05:08 Sodium 141 mmol/L (136-145) 07/02/22 05:07 Potassium 4.2 mmol/L (3.5-5.1) 07/02/22 05:07 Chloride 107 mmol/L (98-107) 07/02/22 05:07 Carbon Dioxide 30 mmol/L (21-32) 07/02/22 05:07 Anion Gap 8.2 mEq/L (5.0-15.0) 07/02/22 05:07 BUN 25 mg/dL (7-18) H 07/02/22 05:07 Creatinine 1.21 mg/dL (0.70-1.30) 07/02/22 05:07 Est GFR (CKD-EPI) 62 ml/min (=/>90) L 07/02/22 05:07 Glucose 150 mg/dL (74-106) H 07/02/22 05:07 POC Glucose 151 mg/dL (65-120) H 07/01/22 07:08 Calcium 8.8 mg/dL (8.5-10.1) 07/02/22 05:07 Magnesium 2.4 mg/dL (1.6-2.4) 07/02/22 05:07 Albumin 3.4 g/dL (3.4-5.0) 07/02/22 05:07 Prealbumin 21.8 mg/dL (20-40) 07/02/22 05:07 Urine Color Colorless (Yellow) 06/26/22 11:06 Urine Clarity Clear (Clear) 06/26/22 11:06 Urine pH 6.5 (5.0-7.0) 06/26/22 11:06 Ur Specific [place] 1.008 (1.005-1.030) 06/26/22 11:06 Glucose (UA)(Auto) Negative (Negative) 06/26/22 11:06 Urine Ketones Negative (Negative) 06/26/22 11:06 Urine Blood Negative (Negative) 06/26/22 11:06 Urine Nitrite Negative (Negative) 06/26/22 11:06 Urine Bilirubin Negative (Negative) 06/26/22 11:06 Urine Urobilinogen Normal (Normal) 06/26/22 11:06 Ur Leukocyte Esterase Negative Sheila/uL (Negative) 06/26/22 11:06 Urine RBC <5 /HPF (None Seen) 06/26/22 11:06 Urine WBC <5 /HPF (<5) 06/26/22 11:06 Ur Squamous Epith Cells <5 /HPF (None Seen) 06/26/22 11:06 U Non-Squamous Epi Cells <5 /HPF (None Seen) 06/26/22 11:06 Urine Bacteria None seen /HPF (<20) 06/26/22 11:06 Urine Mucus Slight /HPF (None Seen) 06/26/22 11:06 Urine Culture Reflexed Not needed 06/26/22 11:06 Urine Total Protein Negative (Negative) 06/26/22 11:06 SARS-CoV-2 Rap RNA(RT-PCR) Negative (NEGATIVE) 06/26/22 11:06 Weight: 180 lb 12.8 oz Wound Present: No Closed Surgical Incision Present: No Negative Pressure Wound Therapy Present: No Physician Update: Labs reviewed and and stable. He is making excellent progress with all therapy. Now independent with ADLs once he knows the location. SBA due to verbal ques needed. He will be discharged home today. Summary: Patient's care plan and alf goals have been reviewed and revised as necessary. Please see the Rehabilitation Signature page for all necessary signatures.
== END 2022-07-02 09:30 | disposition home health service (06) | DRG 93 ==
LOC: 5TH 09:20
PROVIDERS: ADMIT Psychiatry & Neurology Neurology with Special Qualifications in Child Neurology; ATTEND Psychiatry & Neurology Neurology with Special Qualifications in Child Neurology
DX: R26.81 Unsteadiness on feet (principal); R53.81 Other malaise; R27.8 Other lack of coordination; I10 Essential (primary) hypertension; E03.9 Hypothyroidism, unspecified; E11.9 Type 2 diabetes mellitus without complications; H54.8 Legal blindness, as defined in USA; E78.5 Hyperlipidemia, unspecified; I25.10 Atherosclerotic heart disease of native coronary artery without angina pectoris; M79.10 Myalgia, unspecified site; M25.50 Pain in unspecified joint; R35.0 Frequency of micturition; G47.00 Insomnia, unspecified; K59.00 Constipation, unspecified; Z95.1 Presence of aortocoronary bypass graft; Z91.81 History of falling
CPT/HCPCS: 36415; 80048; 81001; 82040; 82947; 83735; 84134; 85025; 87086; 87088; 92523; 97110; 97112; 97116; 97129; 97161; 97165; 97530; 97537; U0003